=== PATIENT | female | born 1955 | race Caucasian/White ===

== ENCOUNTER 2019-11-13 07:41 | Outpatient (REF) | payer MEDICARE, SELFPAY ==
[2019-11-13 08:30] LABS: MANUAL DIFF FLAG NO
[2019-11-13 08:40] LABS: Basophils Absolute Auto 0.1 X10*3/uL (0.0-0.2); Basophils Percent Auto 1.4 % (0-2); Eosinophils Absolute Auto 0.2 X10*3/uL (0.0-0.4); Eosinophils Percent Auto 3.8 % (0-4); Hematocrit 41.5 % (37-47); Hemoglobin 13.5 g/dl (12.0-16.0); Imm Gran Abs Auto 0.01 X10*3/uL (0.00-0.03); Imm Gran Pct Auto 0.2 % (0.0-0.4); Lymphocytes Percent Auto 34.7 % (20-40); Mean Corpuscular HGB Conc 32.5 g/dl (31.0-35.0); Mean Corpuscular Hemoglobin 29.2 pg (27.0-33.0); Mean Corpuscular Volume 89.8 fL (80-98); Mean Platelet Volume 10.1 fL (9.4-12.3); Monocytes Absolute Auto 0.5 X10*3/uL (0.1-1.2); Monocytes Percent Auto 8.2 % (2-11); Neutrophils Percent Auto 51.7 % (45-73); Platelet Count 306 X10*3/uL (160-400); Red Blood Count 4.62 X10*6/uL (4.20-5.50); Red Cell Distribution Width 12.2 % (11.0-16.0); White Blood Count 5.9 X10*3/uL (4.8-10.8)
[2019-11-13 08:57] LABS: Alanine Aminotransferase 31 U/L (0-31); Alkaline Phosphatase 76 U/L (39-117); Anion Gap 10 (12-20); Aspartate Amino Transferase 26 U/L (5-31); Bilirubin Total 0.4 mg/dL (0.0-1.0); Blood Urea Nitrogen 20 mg/dL (9-16); Calcium 9.6 mg/dL (8.4-10.2); Carbon Dioxide 30 mmol/L (22-29); Chloride 105 mmol/L (96-108); Cholesterol 187 mg/dL; Estimated Glomerular Filt Rate > 60; Glucose Random 101 mg/dL (60-115); HDL Cholesterol 52 mg/dL; LDL Cholesterol Calculated 119 mg/dl; Potassium 4.5 mmol/l (3.3-5.1); Sodium 140 mmol/L (135-145); Total Protein 6.6 g/dL (6.5-8.0); Triglycerides 83 mg/dL
[2019-11-13 09:18] LABS: Free T4 (Free Thyroxine) 1.04 ng/dL (0.71-1.85); Thyroid Stimulating Hormone 1.06 mIU/mL (0.32-4.0)
[2019-11-13 10:13] LABS: Estimated Average Glucose 108 mg/dL; Hemoglobin A1c % 5.4 %
== END 2019-11-13 07:42 | disposition home or self-care (01) ==
LOC: HO.LAB 07:41
PROVIDERS: PCP Internal Medicine; Referring Provider Physician Assistant; Visit Provider Internal Medicine Endocrinology, Diabetes & Metabolism
DX: I10 Essential (primary) hypertension (principal); E06.3 Autoimmune thyroiditis
CPT/HCPCS: 36415; 80053; 80061; 83036; 84439; 84443; 85025

== ENCOUNTER → 2019-12-08 08:06 | Outpatient (BNVA) | payer MEDICARE, SELFPAY | PROVIDERS: PCP Internal Medicine; Visit Provider Internal Medicine Endocrinology, Diabetes & Metabolism | DX: E03.9 Hypothyroidism, unspecified (principal); E04.1 Nontoxic single thyroid nodule; E66.9 Obesity, unspecified; Z68.31 Body mass index [BMI] 31.0-31.9, adult; Z71.3 Dietary counseling and surveillance | CPT/HCPCS: 99214 ==

== ENCOUNTER 2020-01-19 11:13 | Outpatient (REF) | payer MEDICARE, SELFPAY ==
--- NOTE | 2020-01-19 11:25 | US_ITS ---
EXAMINATION: US THYROID CLINICAL INFORMATION: Hypothyroidism, unspecified. COMPARISON: Ultrasound soft tissue head/neck thyroid dated 09/14/2016. TECHNIQUE: Linear transducer cornell-scale and color Doppler examination with attention to the region of the thyroid. FINDINGS: SIZE: Measurements of the thyroid lobes and nodules are given in sagittal, anteroposterior and transverse dimensions respectively. Right Thyroid Lobe: 4.5 x 1.3 x 1.5 cm, volume 4.6 mL. Previously 2.5 x 0.8 x 1.2 cm, volume 1.2 mL. Parenchyma: The gland echotexture is homogeneous. Thyroid vascularity is normal. Left Thyroid Lobe: 3.6 x 0.8 x 1.3 cm, volume 1.8 mL. Previously 3.6 x 1.0 x 1.1 cm, volume 2.0 mL. Parenchyma: The gland echotexture is homogeneous. Thyroid vascularity is normal. Isthmus: 0.2 cm in maximum AP dimension. Previously 0.2 cm. RIGHT THYROID LOBE: There is 1 nodule seen. 1. Location: Mid to lower pole. Size: 1.2 x 0.7 x 1.0 cm. Previous: None cm. Nodule characteristics: Hypoechoic, smoothly marginated with intranodular flow. ISTHMUS: No nodules. LEFT THYROID LOBE: No nodules. NODES: No lymphadenopathy is seen in the tissue surrounding the thyroid gland. US/US thyroid IMPRESSION: Solitary solid nodule mid to lower pole right thyroid lobe. Recommend ultrasound-guided fine needle biopsy of this solid nodule.
== END 2020-01-19 11:14 | disposition home or self-care (01) ==
LOC: HO.US 11:13
PROVIDERS: PCP Internal Medicine; Visit Provider Internal Medicine Endocrinology, Diabetes & Metabolism
DX: E03.9 Hypothyroidism, unspecified (principal); R00.2 Palpitations; I10 Essential (primary) hypertension
CPT/HCPCS: 76536; 93005; 99212

== ENCOUNTER → 2020-01-30 09:47 | Outpatient (REF) | payer MEDICARE, SELFPAY ==
--- NOTE | 2020-01-30 15:02 | ECG_ITS ---
Hook-up date: 2020-01-30 11:09:00 Duration: :16:00 Test Indications: PALPITATIONS Medications: 76779 QRS complexes 301 Ventricular ectopics which represent <1 % of total QRS comp. 26 Supraventricular ectopics which represent <1 % of total QRS comp. * Paced QRS complexs which represent % of total QRS comp. VENTRICULAR ECTOPY 299 Isolated 0 Bigeminal Cycles 1 Couplets 0 Runs 0 Beats in Runs * Beats LONGEST at * BPM at :: -- * Beats FASTEST at * BPM at :: -- SUPRAVENTRICULAR ECTOPY 24 Isolated 1 Couplets 0 Runs 0 Beats in Runs * Beats LONGEST at * BPM at :: -- * Beats FASTEST at * BPM at :: -- HEART RATES 62 MIN at 14:01:46 2020-01-30 90 AVG 131 MAX at 17:12:28 2020-01-30 LONGEST RR 0.9840 secs at 14:01:45 2020-01-30 S-T LEVELS Channel 1 - 128 mm at 11:09:00 2020-01-30 - 128 mm at 11:09:00 2020-01-30 Channel 2 - 128 mm at 11:09:00 2020-01-30 - 128 mm at 11:09:00 2020-01-30 Channel 3 - 128 mm at 03:02:81 -- - 128 mm at 03:02:81 Basic rhythm Normal sinus rhythm No long pause or profound bradycardia Occasional Premature ventricular complexes Patient symptoms of skipped heart beat correlated with PVc Referred By: Mitch Pratt Overread By: EULALIA CARDONA MD
== END ==
LOC: HO.CARD 09:47
PROVIDERS: PCP Internal Medicine; Visit Provider Internal Medicine Cardiovascular Disease
DX: R00.2 Palpitations (principal)
CPT/HCPCS: 93226

== ENCOUNTER 2020-02-02 08:39 | Outpatient (REF) | payer MEDICARE, SELFPAY ==
--- NOTE | 2020-02-02 08:46 | US_ITS ---
EXAMINATION: US ULTRASOUND-GUIDED THYROID NODULE BIOPSY, RIGHT CLINICAL INFORMATION: Right thyroid midpole nodule. COMPARISON: 01/19/2020 and September 14, 2016 TECHNIQUE: Ultrasound-guided right thyroid nodule fine-needle aspiration biopsy. FINDINGS: Informed consent was obtained from the patient prior to the procedure. During this process, the procedure and potential alternatives were explained, along with the intended outcome and benefits. The risks of the procedure, as well as the risk of not doing the procedure, were discussed. The patient was given the opportunity to ask questions regarding the procedure and appeared competent to make medical decisions. A signed consent form which documents this discussion was placed in the medical record. Using sterile technique and ultrasound guidance, 4 separate passes of 25-gauge hypodermic needles were made into the right thyroid nodule. Preliminary cytology result was of an adequate specimen. The patient tolerated the procedure without difficulty. US/US guided fine needle asp IMPRESSION: Successful right thyroid nodule biopsy.
== END 2020-02-02 08:40 | disposition home or self-care (01) ==
LOC: HO.US 08:39
PROVIDERS: Visit Provider Internal Medicine Endocrinology, Diabetes & Metabolism
DX: E04.1 Nontoxic single thyroid nodule (principal); R00.0 Tachycardia, unspecified
CPT/HCPCS: 10005; 88172; 88173; 88177; 88305; 93005

== ENCOUNTER → 2020-07-28 14:06 | Outpatient (BNVA) | payer MEDICARE, SELFPAY | PROVIDERS: PCP Internal Medicine; Visit Provider Internal Medicine Cardiovascular Disease | DX: R00.2 Palpitations (principal); I10 Essential (primary) hypertension | CPT/HCPCS: 93005; 99212 ==

== ENCOUNTER 2020-09-23 10:16 | Outpatient (REF) | payer MEDICARE, SELFPAY ==
--- NOTE | ~2020-09-23 | US_ITS ---
EXAMINATION: US THYROID CLINICAL INFORMATION: Nontoxic single thyroid nodule. COMPARISON: Ultrasound soft tissue head/neck thyroid dated 01/19/2020 and 09/04/2016. TECHNIQUE: Linear transducer grayscale and color Doppler examination with attention to the region of the thyroid. FINDINGS: SIZE: Measurements of the thyroid lobes and nodules are given in sagittal, anteroposterior and transverse dimensions respectively. Right Thyroid Lobe: 4.7 x 1.1 x 0.9 cm, volume 2.4 mL. Previously 4.5 x 1.3 x 1.5 cm, volume 4.6 mL. Parenchyma: The gland echotexture is heterogeneous. Thyroid vascularity is normal. Left Thyroid Lobe: 4.3 x 1.1 x 0.9 cm, volume 2.3 mL. Previously 3.6 x 0.8 x 1.3 cm, volume 1.8 mL. Parenchyma: The gland echotexture is heterogeneous. Thyroid vascularity is normal. Isthmus: 0.2 cm in maximum AP dimension. Previously 0.2 cm. Estimated total number of nodules greater than or equal to 1 cm: 1. Snuff Drier nodules are described as follows: 1. Location: Right inferior. Size: 1.1 x 0.7 x 0.7 cm, volume 0.3 mL. Previously: 1.2 x 0.7 x 1.0 cm, volume 0.4 mL. Nodule characteristics: Composition: Solid (2). Echogenicity: Isoechoic (1). Shape: Not taller than wide (0). Margins: Smooth (0). Echogenic Foci: None (0). ACR TI-RADS total points: 3 Previous: n/a ACR TI-RADS category: 3 Previous: n/a Significant change in size (>/= 20% in 2 dimensions and minimal increase of 2 mm or 50% or greater increase in volume): No Change in features: No Change in ACR TI-RADS risk category: n/a NODES: No lymphadenopathy is seen in the tissue surrounding the thyroid gland. US/US thyroid IMPRESSION: Redemonstration of heterogeneous thyroid parenchyma without increased Doppler detectable vascular flow. No thyromegaly. Stable inferior right thyroid nodule measuring approximately 1.2 cm and not significantly changed in size or ultrasound characteristics when compared to the prior examination. This is consistent with TI-RADS Category 3. No new thyroid nodule. ACR TI-RADS RECOMMENDATION REFERENCE: Ultrasound-guided fine-needle aspiration, followup ultrasound, no further follow up. * TR1 (0 point) and TR 2 (2 points): No FNA or follow up * TR3 (3 points): FNA if more than or equal to 2.5 cm in maximum dimension, followup ultrasound in 1, 3 and 5 years if 1.5 to 2.4 cm in maximum dimension. * TR4 (4-6 points): FNA if more than or equal to 1.5 cm in maximum dimension, followup ultrasound in 1, 2, 3 and 5 years if 1 to 1.4 cm in maximum dimension. * TR5 (more than or equal to 7 points): FNA if more than or equal to 1 cm in maximum dimension, followup ultrasound every year for 5 years if 0.5 to 0.9 cm in maximum dimension. * TR3, TR4 or TR5 nodules that are below the size threshold for follow up receive no follow up.
== END 2020-09-23 10:17 | disposition home or self-care (01) ==
LOC: HO.US 10:16
PROVIDERS: PCP Internal Medicine; Visit Provider Internal Medicine Endocrinology, Diabetes & Metabolism
DX: E04.1 Nontoxic single thyroid nodule (principal)
CPT/HCPCS: 76536

== ENCOUNTER 2020-11-24 07:56 | Outpatient (REF) | payer MEDICARE, SELFPAY ==
[2020-11-24 11:02] LABS: MANUAL DIFF FLAG NO
[2020-11-24 11:05] LABS: Basophils Absolute Auto 0.1 X10*3/uL (0.0-0.2); Basophils Percent Auto 1.1 % (0-2); Eosinophils Absolute Auto 0.2 X10*3/uL (0.0-0.4); Eosinophils Percent Auto 2.9 % (0-4); Hematocrit 37.7 % (37-47); Hemoglobin 12.7 g/dl (12.0-16.0); Imm Gran Abs Auto 0.01 X10*3/uL (0.00-0.03); Imm Gran Pct Auto 0.2 % (0.0-0.4); Lymphocytes Absolute Auto 2.1 X10*3/uL (1.2-4.9); Lymphocytes Percent Auto 37.6 % (20-40); Mean Corpuscular HGB Conc 33.7 g/dl (31.0-35.0); Mean Corpuscular Hemoglobin 30.1 pg (27.0-33.0); Mean Corpuscular Volume 89.3 fL (80-98); Mean Platelet Volume 10.3 fL (9.4-12.3); Monocytes Absolute Auto 0.5 X10*3/uL (0.1-1.2); Monocytes Percent Auto 9.1 % (2-11); Neutrophils Absolute Auto 2.8 X10*3/uL (2.0-8.3); Neutrophils Percent Auto 49.1 % (45-73); Platelet Count 326 X10*3/uL (160-400); Red Blood Count 4.22 X10*6/uL (4.20-5.50); Red Cell Distribution Width 12.1 % (11.0-16.0); White Blood Count 5.6 X10*3/uL (4.8-10.8)
[2020-11-24 11:42] LABS: Alanine Aminotransferase 24 U/L (0-31); Albumin Level 3.7 g/dL (3.5-5.0); Alkaline Phosphatase 79 U/L (39-117); Anion Gap 12 (12-20); Aspartate Amino Transferase 19 U/L (5-31); Bilirubin Total 0.4 mg/dL (0.0-1.0); Blood Urea Nitrogen 12 mg/dL (9-16); Calcium 9.5 mg/dL (8.4-10.2); Carbon Dioxide 26 mmol/L (22-29); Chloride 106 mmol/L (96-108); Cholesterol 160 mg/dL; Estimated Glomerular Filt Rate > 60; Glucose Fasting 104 mg/dL (60-99); HDL Cholesterol 44 mg/dL; LDL Cholesterol Calculated 100 mg/dl; Potassium 4.2 mmol/L (3.3-5.1); Sodium 140 mmol/L (135-145); Total Protein 6.3 g/dL (6.5-8.0); Triglycerides 82 mg/dL
[2020-11-24 11:55] LABS: Free T4 (Free Thyroxine) 1.14 ng/dL (0.71-1.85); Thyroid Stimulating Hormone 0.39 uIU/mL (0.32-4.0)
== END 2020-11-24 07:57 | disposition home or self-care (01) ==
LOC: HO.MANLDS 07:56
PROVIDERS: PCP Physician Assistant; Visit Provider Physician Assistant
DX: E78.00 Pure hypercholesterolemia, unspecified (principal); E03.9 Hypothyroidism, unspecified
CPT/HCPCS: 36415; 80053; 80061; 84439; 84443; 85025

== ENCOUNTER → 2020-11-29 09:01 | Outpatient (BNVA) | payer MEDICARE, SELFPAY | PROVIDERS: PCP Internal Medicine; Visit Provider Internal Medicine | DX: E04.1 Nontoxic single thyroid nodule (principal); E03.9 Hypothyroidism, unspecified; E66.9 Obesity, unspecified; Z68.32 Body mass index [BMI] 32.0-32.9, adult | CPT/HCPCS: 99212 ==

== ENCOUNTER 2020-12-28 13:00 | Outpatient (REF) | payer MEDICARE, SELFPAY ==
[2020-12-28 14:08] LABS: Calcium 9.5 mg/dL (8.4-10.2); Phosphorus 2.8 mg/dL (2.7-4.5)
[2020-12-28 14:32] LABS: Thyroid Stimulating Hormone 0.89 uIU/mL (0.32-4.0)
[2020-12-28 14:33] LABS: Free T4 (Free Thyroxine) 1.03 ng/dL (0.71-1.85); Thyroid Stimulating Hormone 0.85 uIU/mL (0.32-4.0); Vitamin D 25-OH Total 52.8 ng/mL (>30)
[2020-12-30 02:57] LABS: Calcium (PTHI) 9.4 mg/dL (8.6-10.4); PTHI 61 pg/mL (14-64)
== END 2020-12-28 13:01 | disposition home or self-care (01) ==
LOC: HO.LAB 13:00
PROVIDERS: Internal Medicine Endocrinology, Diabetes & Metabolism; PCP Internal Medicine; Visit Provider Internal Medicine
DX: E04.1 Nontoxic single thyroid nodule (principal); E03.9 Hypothyroidism, unspecified; E55.9 Vitamin D deficiency, unspecified
CPT/HCPCS: 36415; 82040; 82306; 82310; 83970; 84100; 84439; 84443

== ENCOUNTER → 2021-01-26 08:57 | Outpatient (BNVA) | payer MEDICARE, SELFPAY | PROVIDERS: PCP Internal Medicine; Visit Provider Internal Medicine Cardiovascular Disease | DX: R00.2 Palpitations (principal) | CPT/HCPCS: 99212 ==

== ENCOUNTER → 2021-10-05 14:32 | Outpatient (BNVA) | payer MEDICARE, SELFPAY | PROVIDERS: PCP Internal Medicine; Visit Provider Internal Medicine Cardiovascular Disease | DX: I10 Essential (primary) hypertension (principal); R00.2 Palpitations | CPT/HCPCS: 99212 ==

== ENCOUNTER 2022-07-19 18:05 | Emergency (ER) | payer MEDICARE, SELFPAY ==
--- NOTE | ~2022-07-19 | XR_ITS ---
EXAMINATION: XR WRIST, RIGHT CLINICAL INFORMATION: Pain COMPARISON: None available. TECHNIQUE: PA, lateral, and oblique views of the right wrist. FINDINGS: Moderate to advanced degenerative changes of the triscaphe joint with loss of joint space. Remote appearing well-corticated ulnar styloid avulsion fracture. Age-indeterminate osseous fragment dorsal to the wrist which may reflect sequelae of age-indeterminate triquetral avulsion fracture. Recommend correlation with point tenderness. Soft tissue swelling along the dorsum of the wrist. XR/XR wrist RT min 3V IMPRESSION: 1. Age-indeterminate osseous fragment dorsal to the wrist which may reflect sequelae of age-indeterminate triquetral avulsion fracture. Recommend correlation with point tenderness. There is associated soft tissue swelling. 2. Moderate to advanced degenerative changes of the triscaphe joint with loss of joint space. 3. Remote appearing well-corticated ulnar styloid avulsion fracture.
--- NOTE | ~2022-07-19 | XR_ITS ---
EXAMINATION: XR FOOT, RIGHT CLINICAL INFORMATION: Pain COMPARISON: None available. TECHNIQUE: AP, lateral, and oblique views of the right foot. FINDINGS: Acute obliquely oriented nondisplaced fracture of the distal fifth metatarsal diaphysis. Soft tissue swelling along the lateral aspect of the foot. Moderate to advanced degenerative changes of the first metatarsophalangeal joint with near complete loss of joint space. Small tibiotalar joint effusion. XR/XR foot RT min 3V IMPRESSION: * Acute obliquely oriented nondisplaced fracture of the distal fifth metatarsal diaphysis. Soft tissue swelling along the lateral aspect of the foot. * Moderate to advanced degenerative changes of the first metatarsophalangeal joint.
[2022-07-19 18:22] VITALS: BP 176/82; PULSE 92; RESP 18; TEMP 36.6; O2SAT 98; BMI 32.3
--- NOTE | 2022-07-19 18:24 | ED.GENADULT ---
HPI - General Adult General Chief complaint: Fall Stated complaint: fell, R foot, R wrist Time Seen by Provider: 07/19/22 18:39 Source: patient Mode of arrival: ambulatory History of Present Illness HPI narrative: 66-year-old female states that she was at an event today in high heels when she fell and is unsure how she fell but states that afterwards she had mild pain at the right wrist as well as the 5th tarsal/metatarsal that was worse with weight-bearing and there is some mild bruising over that area. Related Data Home Medications Medication Instructions Recorded Confirmed lisinopril 20 1 tab PO DAILY 12/08/19 10/05/21 mg-hydrochlorothiazide 25 mg tablet omeprazole 20 mg capsule,delayed 20 mg PO DAILY 12/08/19 10/05/21 release simvastatin 20 mg tablet 20 mg PO BEDTIME 12/08/19 10/05/21 celecoxib 200 mg capsule (Celebrex) 200 mg PO DAILY PRN 07/28/20 10/05/21 Previous Rx's Medication Instructions Recorded Synthroid 75 mcg tablet 75 mcg PO DAILY 30 days #30 tabs 11/29/20 (levothyroxine) metoprolol succinate 25 mg 25 mg PO BID #180 tabs 11/16/21 tablet,extended release 24 hr Allergies Allergy/AdvReac Type Severity Reaction Status Date / Time Sulfa (Sulfonamide Allergy Unknown Unknown Verified 07/19/22 18:22 Antibiotics) sulfamethoxazole Allergy Unknown HIVES Verified 07/19/22 18:22 [From BACTRIM] trimethoprim [From BACTRIM] Allergy Unknown HIVES Verified 07/19/22 18:22 Review of Systems Review of Systems: Pertinent positives and negatives as stated in HPI [facility] Past Medical History Source: nursing notes reviewed Medical History Abnormal thyroid biopsy Dyslipidemia Hypertension Hypothyroidism Obesity Obesity (BMI 30-39.9) Thyroid nodule Vitamin D deficiency Surgical History Hx of arthroscopy of left knee Hx of breast biopsy Family History Family History Father Heart disease Mother Hypertension Thyroid disease Afib Maternal Aunt Diabetes mellitus Social History Social History Alcohol intake: current Alcohol intake frequency: a few times a week Alcohol type: wine and hard liquor Patient Tobacco Use Status: Former Tobacco user Quit Date: 2002 Years Smoked: 10 Advance Directives: No Advance Directives Information Provided: No Physical Exam ED Vital Signs: Vital Signs - 24 hr 07/19/22 18:22 07/19/22 21:16 Temperature 98 F Pulse Rate 92 84 Respiratory Rate 18 Blood Pressure 176/82 H 139/75 Pulse Oximetry 98 95 Oxygen Delivery Method Room Air BMI result Body Mass Index 32.3 VITAL SIGNS: Reviewed. GENERAL: Well developed, well nourished, in no acute distress. HEAD: Normocephalic/atraumatic EYES: PERRLA, EOMI EARS: Ext canals without abnormality NOSE: Nares patent bilateral OROPHARYNX: no oral lesions noted, posterior pharynx clear NECK: Supple, no adenopathy LUNGS: Normal breath sounds. No adventitious sounds or accessory muscle use. SpO2<98> CARDIOVASCULAR: Regular rate and rhythm without noted murmurs ABDOMEN: Soft, non-tender, non-distended with bowel sounds. MUSCULOSKELETAL: No tenderness, deformities, or effusions noted on gross inspection. EXTREMITIES: No cyanosis, clubbing or edema. RLE: No obvious deformity, mild ecchymosis noted at the distal 5th tarsal/metatarsal with point tenderness on palpation, otherwise no tenderness to palpation or swelling noted at either malleoli or midfoot RUE: Very mild swelling noted at the distal right radius no obvious deformity, there is point tenderness over the distal aspect patient is able to flex and extend at the wrist as well as supinate and pronate but has some mild pain on radial deviation verses ulnar deviation. Capillary refill and pulses are palpable SKIN: Inspection of the skin reveals no rashes NEUROLOGIC: Alert and oriented x 4. Strength and sensation to light touch were grossly intact x 4. Course Course Course Narrative: 58-year-old female presents for evaluation of right wrist and right foot pain after sustaining a fall [place]. X-rays ordered. Medical Decision Making Medical Decision Making MDM Narrative: 66-year-old female with history and clinical presentation most consistent with suspected nondisplaced fracture at the right 5th tarsal/metatarsal as well as the right radius. Patient states that her pain is well controlled at present. Fifth metatarsal fracture is outlined in clinical exam and above, also age indeterminate triquetral avulsion fracture. Patient placed in a volar splint will be discharged home with instructions to follow-up with orthopedics by calling the office in the morning. Differential Diagnosis Please see the discussion above Radiology Impression Radiologist Impression: My interpretation is in agreement with radiology's impression Discharge Plan Discharge Clinical Impression: Closed nondisplaced fracture of fifth right metatarsal bone, Fracture of triquetral bone of right wrist Patient Disposition: Home, Self-Care Instructions: Wrist Fracture in Adults (ED), Foot Fracture in Adults (ED), Splint Care (ED) Additional Instructions: 1. Resume all home medications as prescribed. 2. Recommend [id number] Tylenol/ibuprofen as needed for pain control as well as ice to unexposed skin. 3. You have been provided with a referral to follow-up with orthopedics and should call the office in the morning. Do not hesitate to return to the emergency room for any worsening symptoms. Prescriptions: No Action metoprolol succinate 25 mg tablet extended release 24 hr 25 mg PO BID Qty: 180 3RF celecoxib [Celebrex] 200 mg capsule 200 mg PO DAILY PRN lisinopril-hydrochlorothiazide 20-25 mg tablet 1 tab PO DAILY omeprazole 20 mg capsule,delayed release(DR/EC) 20 mg PO DAILY simvastatin 20 mg tablet 20 mg PO BEDTIME levothyroxine [Synthroid] 75 mcg tablet 75 mcg PO DAILY 30 Days Qty: 30 5RF Referrals: Erik Lizama MD [Primary Care Provider] - Moose Torres MD [Physician] -
[2022-07-19 21:16] VITALS: BP 139/75; PULSE 84; O2SAT 95
== END 2022-07-19 21:46 | disposition home or self-care (01) ==
PROVIDERS: Emergency Provider Student in an Organized Health Care Education/Training Program; PCP Internal Medicine
DX: S92.354A Nondisplaced fracture of fifth metatarsal bone, right foot, initial encounter for closed fracture (principal); S62.114A Nondisplaced fracture of triquetrum [cuneiform] bone, right wrist, initial encounter for closed fracture; W19.XXXA Unspecified fall, initial encounter; Y93.9 Activity, unspecified; Y92.9 Unspecified place or not applicable; Y99.9 Unspecified external cause status
CPT/HCPCS: 29125; 73110; 73630; 99283; 99284

== ENCOUNTER 2022-09-15 06:50 | Outpatient (REF) | payer MEDICARE, SELFPAY ==
[2022-09-15 07:08] LABS: MANUAL DIFF FLAG NO
[2022-09-15 07:20] LABS: Basophils Absolute Auto 0.1 X10*3/uL (0.0-0.2); Basophils Percent Auto 1.8 % (0-2); Eosinophils Absolute Auto 0.2 X10*3/uL (0.0-0.4); Eosinophils Percent Auto 2.8 % (0-4); Hematocrit 40.7 % (37.0-47.0); Hemoglobin 13.6 g/dl (12.0-16.0); Imm Gran Abs Auto 0.02 X10*3/uL (0.00-0.03); Imm Gran Pct Auto 0.3 % (0.0-0.4); Lymphocytes Absolute Auto 2.3 X10*3/uL (1.2-4.9); Lymphocytes Percent Auto 37.6 % (20-40); Mean Corpuscular HGB Conc 33.4 g/dl (31.0-35.0); Mean Corpuscular Hemoglobin 29.8 pg (27.0-33.0); Mean Corpuscular Volume 89.1 fL (80.0-98.0); Mean Platelet Volume 10.3 fL (9.4-12.3); Monocytes Absolute Auto 0.6 X10*3/uL (0.1-1.2); Monocytes Percent Auto 9.7 % (2-11); Neutrophils Absolute Auto 2.9 x10*3/uL (2.0-8.3); Neutrophils Percent Auto 47.8 % (45-73); Platelet Count 317 X10*3/uL (160-400); Red Blood Count 4.57 X10*6/uL (4.20-5.50); White Blood Count 6.1 X10*3/uL (4.8-10.8)
[2022-09-15 07:29] LABS: Estimated Average Glucose 105 mg/dL; Hemoglobin A1c % 5.3 %
[2022-09-15 07:48] LABS: Alanine Aminotransferase 31 U/L (0-31); Albumin Level 4.2 g/dL (3.5-5.0); Alkaline Phosphatase 74 U/L (39-117); Anion Gap 15 (12-20); Aspartate Amino Transferase 23 U/L (5-31); Bilirubin Total 0.5 mg/dL (0.0-1.0); Blood Urea Nitrogen 22 mg/dL (9-16); Carbon Dioxide 23 mmol/L (22-29); Chloride 104 mmol/L (96-108); Cholesterol 166 mg/dL; Estimated Glomerular Filt Rate > 60; Glucose Random 112 mg/dL (60-115); HDL Cholesterol 46 mg/dL; LDL Cholesterol Calculated 102 mg/dl; Potassium 4.2 mmol/L (3.3-5.1); Sodium 138 mmol/L (135-145); Total Protein 7.5 g/dL (6.5-8.0); Triglycerides 90 mg/dL
[2022-09-15 08:03] LABS: TSH reflex Free T4 1.56 uIU/mL (0.32-4.0)
[2022-09-17 06:34] LABS: Triiodothyronine T3 Free 3.5 pg/mL (2.3-4.2)
== END 2022-09-15 06:51 | disposition home or self-care (01) ==
LOC: HO.LAB 06:50
PROVIDERS: Physician Assistant; Absent Provider Internal Medicine; PCP Internal Medicine; Visit Provider Pediatrics
DX: E78.2 Mixed hyperlipidemia (principal); E03.8 Other specified hypothyroidism; Z83.3 Family history of diabetes mellitus
CPT/HCPCS: 36415; 80053; 80061; 83036; 84443; 84481; 85025

== ENCOUNTER 2022-11-15 10:31 | Outpatient (AMB) | payer MEDICARE, SELFPAY ==
[2022-11-15 10:36] VITALS: BP 120/74; PULSE 68; BMI 33.3
--- NOTE | 2022-11-15 10:36 | A.OFFVIS_ITS ---
Intake Vital Signs 11/15/22 10:36 Height 5 ft 6 in Weight 206 lb 5.643 oz BMI 33.3 BP 120/74 Blood Pressure Location Lt brachial Position Sitting Pulse 68 Intake Visit Reasons: 1 year follow up Intake Note: 1 year f/u [employer] Required: No Allergies Sulfa (Sulfonamide Antibiotics) Allergy (Unknown, Verified 11/15/22 10:40) Unknown sulfamethoxazole [From BACTRIM] Allergy (Unknown, Verified 11/15/22 10:40) HIVES trimethoprim [From BACTRIM] Allergy (Unknown, Verified 11/15/22 10:40) HIVES Medication List - Last Reconciled 11/15/22 by Micth Pratt MD levothyroxine (Synthroid) 88 mcg PO DAILY lisinopril-hydrochlorothiazide 20-25 mg 1 tab PO DAILY metoprolol succinate ER 25 mg PO BID omeprazole 20 mg PO DAILY simvastatin 20 mg PO BEDTIME HPI HPI Comments History of Present Illness Details 67-year-old pleasant female here for fam shaista history of coronary artery disease. Her brother had myocardial infarction at age 60. She has background of hypertension, hyperlipidemia and hypothyroidism. She has no exertional chest pain or shortness of breath. She occasionally gets palpitations when she is anxious. Currently she has no limiting symptoms. I met her when she came with her mother who is my patient. She briefly discussed with me about her situation and after discussion I told her that a coronary calcium score may help understand her situation. She has undergone a coronary calcium score which is 0. She has been taking simvastatin for hyperlipidemia. She is on lisinopril hydrochlorothiazide combination medication and blood pressure is well controlled. She was complaining of palpitation and underwent Holter monitoring which showed premature ventricular complexes. She was started on metoprolol 25 mg twice a day since then her symptoms improved. On follow-up today she is complaining of no new symptoms. No chest discomfort shortness of breath. She had very brief period of palpitations while she was on vacation in [place]. I have advised her to keep herself well hydrated which she does a good job with anyway. 11/15/22: She returns for follow-up. Miriam badillo is complaining of some palpitations happening every other day. These last for a minute or so. During activities she does not have any symptoms. Overall she is not bothered by them. No chest pain or shortness of breath of syncope. [facility] Medical History Abnormal thyroid biopsy Dyslipidemia Hypertension Hypothyroidism Obesity Obesity (BMI 30-39.9) Thyroid nodule Vitamin D deficiency Surgical History Hx of breast biopsy Hx of arthroscopy of left knee Family History Father Heart disease Mother Hypertension Thyroid disease Afib Maternal Aunt Diabetes mellitus Social History Alcohol intake: current Alcohol intake frequency: a few times a week Alcohol type: wine and hard liquor Patient Tobacco Use Status: Former Tobacco user Quit Date: 2002 Years Smoked: 10 Review of Systems ENT Reports dizziness Card Denies chest pain, Denies chest pain at rest, Denies chest pain with activity, Denies rapid heart rate, Denies pedal edema, Denies edema, Denies leg edema, Denies lightheadedness, Denies palpitations, Denies dyspnea, Denies dyspnea on exertion and Denies orthopnea Resp Denies cough, Denies dyspnea and Denies dyspnea on exertion GI Denies hematochezia and Denies change in stool character Musc Denies abnormal gait, Reports limited range of motion, Reports muscle cramps, Denies muscle weakness, Denies numbness, Denies radiating pain into limb, Denies stiffness and Denies tingling Neuro Denies abnormal gait, Reports dizziness, Denies numbness and Denies tingling Endo Denies palpitations Physical Exam Vital Signs: Last Vital Signs Pulse 68 11/15/22 10:36 BP 120/74 11/15/22 10:36 BMI result Body Mass Index 33.3 GENERAL APPEARANCE: in no acute distress, well developed, well nourished. NECK/THYROID: no carotid bruit, no jugular venous distention. SKIN: no suspicious lesions, warm and dry. HEART: no murmurs, regular rate and rhythm, S1, S2 normal. LUNGS: clear to auscultation bilaterally. ABDOMEN: normal, bowel sounds present, soft, nontender, nondistended. EXTREMITIES: no clubbing, cyanosis, or edema. PERIPHERAL PULSES: equal. NEUROLOGIC: nonfocal, alert and oriented. PSYCH: mood/affect full range. Office Procedures EKG Details: Sinus rhythm 68 beats per minute, normal axis, normal ECG, QTC 438 milliseconds. [id number], Complete Assessment & Plan Assessment & Plan (1) Hypertension: Code(s): I10 - Essential (primary) hypertension (2) Palpitations: Code(s): R00.2 - Palpitations Plan Pleasant 67-year-old female here for follow-up. She has background of hypertension and palpitations. She had PVCs on Holter monitoring. With beta-blockers, she has done well but recently started noticing some palpitations. Still these are not bothersome and not frequent. With activities she has no symptoms. She is going to [place] for 6 months. We discussed about increasing metoprolol but currently given the fact that she is not bothered by PVCs we have decided not to increase the dose. I explained to her that if she gets frequent episodes while she is in [place] then she can reach out to us and depending on her blood pressure we can increase the metoprolol to 50 mg twice a day at that stage. No sign or symptoms of heart failure. Follow-up in 1 year. Thank you for allowing me to participate in the care of your patient. Please feel free to contact me if you have any questions. Coding Level of Care Code Est Pt Level 3 (71816) Diagnoses Hypertension I10 Palpitations R00.2 CPT Codes EKG - CPT: 31209-[id number], Complete ([id number])
== END 2022-11-15 11:25 | disposition home or self-care (01) ==
PROVIDERS: PCP Internal Medicine; Visit Provider Internal Medicine Cardiovascular Disease
DX: I10 Essential (primary) hypertension (principal); R00.2 Palpitations
CPT/HCPCS: 93010; 99213

== ENCOUNTER → 2022-11-15 10:31 | Outpatient (BNVA) | payer MEDICARE, SELFPAY | PROVIDERS: PCP Internal Medicine; Visit Provider Internal Medicine Cardiovascular Disease | DX: I10 Essential (primary) hypertension (principal); R00.2 Palpitations | CPT/HCPCS: 93005; 99212 ==

== ENCOUNTER 2023-10-02 13:33 | Outpatient (REF) | payer MEDICARE, SELFPAY | END 2023-10-02 13:34 | disposition home or self-care (01) | LOC: HO.LNP 13:33 | PROVIDERS: Visit Provider Physician Assistant | DX: J02.9 Acute pharyngitis, unspecified (principal) | CPT/HCPCS: 87070 ==

== ENCOUNTER 2024-01-04 22:00 | Emergency (ER) | payer MEDICARE, SELFPAY ==
--- NOTE | ~2024-01-04 | XR_ITS ---
EXAMINATION: XR SHOULDER 2 OR MORE VIEWS RIGHT, XR SHOULDER 1 VIEW RIGHT CLINICAL INFORMATION: right shoulder pain, fall COMPARISON: None. TECHNIQUE: 2 view series right shoulder 01/04/2024 10:31 PM; single post reduction AP view 10:49 PM FINDINGS: Initial radiographs demonstrate an anteroinferior dislocation of the right humeral head. The visualized right ribs and lung are normal in appearance. No fractures identified. The final postreduction view demonstrates normal AP orientation of the glenohumeral joint. Humeral head appears intact. Normal appearance of the acromioclavicular joint. XR/XR shoulder RT min 2V IMPRESSION: Initial anterior dislocation of the right shoulder with post reduction images demonstrating normal glenohumeral alignment. No fractures. Electronically signed by: Perez Parkinson MD 01/05/2024 12:52 AM FARTUN MARCELINO
--- NOTE | ~2024-01-04 | XR_ITS ---
EXAMINATION: XR SHOULDER 2 OR MORE VIEWS RIGHT, XR SHOULDER 1 VIEW RIGHT CLINICAL INFORMATION: right shoulder pain, fall COMPARISON: None. TECHNIQUE: 2 view series right shoulder 01/04/2024 10:31 PM; single post reduction AP view 10:49 PM FINDINGS: Initial radiographs demonstrate an anteroinferior dislocation of the right humeral head. The visualized right ribs and lung are normal in appearance. No fractures identified. The final postreduction view demonstrates normal AP orientation of the glenohumeral joint. Humeral head appears intact. Normal appearance of the acromioclavicular joint. XR/XR shoulder RT 1V IMPRESSION: Initial anterior dislocation of the right shoulder with post reduction images demonstrating normal glenohumeral alignment. No fractures. Electronically signed by: Perez Parkinson MD 01/05/2024 12:52 AM FARTUN MARCELINO
[2024-01-04 22:04] VITALS: BP 107/53; PULSE 72; RESP 18; TEMP 36.3; O2SAT 93; BMI 30.7
--- NOTE | 2024-01-04 22:34 | ED.EXTPRO ---
HPI - Extremity Problem General Chief complaint: Extremity Injury, Upper Stated complaint: Fall/R shoulder pain Time Seen by Provider: 01/04/24 22:34 Source: patient Mode of arrival: ambulatory Limitations: no limitations History of Present Illness ED Provider: zoraida COUCH Narrative: Patient apparently slipped while living [place] earlier on a piece of fence landed on her right shoulder complaining of pain and unable to lift the right shoulder because of pain no history of dislocation in the past no other injuries Related Data Home Medications ?Medication ?Instructions ?Recorded ?Confirmed lisinopril 20 1 tab PO DAILY 12/08/19 11/15/22 mg-hydrochlorothiazide 25 mg tablet omeprazole 20 mg capsule,delayed 20 mg PO DAILY 12/08/19 11/15/22 release simvastatin 20 mg tablet 20 mg PO BEDTIME 12/08/19 11/15/22 levothyroxine 88 mcg tablet 88 mcg PO DAILY 11/15/22 11/15/22 (Synthroid) Previous Rx's ?Medication ?Instructions ?Recorded metoprolol succinate 25 mg 25 mg PO BID #180 tabs 02/23/23 tablet,extended release 24 hr Allergies Allergy/AdvReac Type Severity Reaction Status Date / Time Sulfa (Sulfonamide Allergy Unknown Unknown Verified 01/04/24 22:07 Antibiotics) sulfamethoxazole Allergy Unknown HIVES Verified 01/04/24 22:07 [From BACTRIM] trimethoprim [From BACTRIM] Allergy Unknown HIVES Verified 01/04/24 22:07 Review of Systems Review of Systems: Yes all other systems are reviewed and are negative PMFSH Past Medical History Medical History Vitamin D deficiency Obesity Abnormal thyroid biopsy Dyslipidemia Hypertension Obesity (BMI 30-39.9) Thyroid nodule Hypothyroidism Surgical History Hx of breast biopsy Hx of arthroscopy of left knee Family History Family History Father Heart disease Mother Hypertension Thyroid disease Afib Maternal Aunt Diabetes mellitus Social History Social History Alcohol intake: current Alcohol intake frequency: a few times a week Alcohol type: wine and hard liquor Patient Tobacco Use Status: Former Tobacco user Years Smoked: 10 Advance Directives: No Advance Directives Information Provided: No Physical Exam Vital Signs: Vital Signs: Last Vital Signs Temp 97.4 F 01/04/24 23:40 Pulse 72 01/04/24 23:40 Resp 18 01/04/24 23:40 BP 107/53 L 01/04/24 23:40 Pulse Ox 93 01/04/24 23:40 O2 Del Method Room Air 01/04/24 23:40 BMI result Body Mass Index 30.7 Appearance: Alert. Oriented X3. No acute distress. ENT: Pharynx normal. Oral Mucosa moist Neck: Normal inspection. Neck supple. CVS: Normal heart rate and rhythm. Pulses normal. Respiratory: No respiratory distress. Equal air entry bilateral, no wheezing/rales/rhonchi Skin: Skin warm and dry. Normal skin color. Normal skin turgor. Extremities: No lower extremity edema. Right shoulder squared neurovascular intact Neuro: Oriented X 3. Medications Administered Discontinued Medications Generic Name Dose Route Start Last Admin Trade Name Manuelq PRN Reason Stop Dose Admin Ibuprofen 600 mg 01/04/24 22:57 01/04/24 23:11 Ibuprofen 600 Mg Tablet PO 01/04/24 22:58 600 mg ONCE ONE Administration Medical Decision Making Medical Decision Making MDM Narrative: Patient's right shoulder dislocate scapular manipulation technique was used to reduce postreduction x-ray with satisfactory position Discharge Plan Discharge Clinical Impression: Anterior dislocation of right shoulder Patient Disposition: Home, Self-Care Instructions: Shoulder Dislocation (ED) Additional Instructions: Keep your right arm in sling Avoid lifting your arm above shoulder for next 3-4 weeks Report to the ER if recurrence of the dislocation Prescriptions: No Action metoprolol succinate 25 mg tablet extended release 24 hr 25 mg PO BID Qty: 180 3RF lisinopril-hydrochlorothiazide 20-25 mg tablet 1 tab PO DAILY omeprazole 20 mg capsule,delayed release(DR/EC) 20 mg PO DAILY simvastatin 20 mg tablet 20 mg PO BEDTIME levothyroxine [Synthroid] 88 mcg tablet 88 mcg PO DAILY Interventions: ED Discharge Assessment Last Done: 01/04/24 23:40 Discharge Date/Time: 01/04/24 23:49 Print Language: Macedonian
[2024-01-04] MEDS: Ibuprofen 600 MG TABLET PO (23:11)
[2024-01-04 23:40] VITALS: BP 107/53; PULSE 72; RESP 18; TEMP 36.3; O2SAT 93
== END 2024-01-04 23:49 | disposition home or self-care (01) ==
PROVIDERS: Emergency Provider Internal Medicine; PCP Internal Medicine
DX: S43.014A Anterior dislocation of right humerus, initial encounter (principal); W01.0XXA Fall on same level from slipping, tripping and stumbling without subsequent striking against object, initial encounter; Y93.89 Activity, other specified; Y92.511 Restaurant or cafe as the place of occurrence of the external cause; Y99.9 Unspecified external cause status
CPT/HCPCS: 23650; 73020; 73030; 99283

== ENCOUNTER 2024-01-21 15:24 | Outpatient (AMB) | payer MEDICARE, SELFPAY ==
--- NOTE | 2024-01-21 15:38 | MHC.OFFVIS ---
Vital Signs 01/21/24 15:39 Height 5 ft 6 in Weight 189 lb 2.506 oz BMI 30.5 BP 130/60 Blood Pressure Location Lt brachial Position Sitting Pulse 88 Pulse Source Monitor Intake Visit Reasons: 1 yr f/up Intake Note: 1 yr f/up Accident Report Clerk Required: No Accompanied by: Self / Same As Patient Allergies Sulfa (Sulfonamide Antibiotics) Allergy (Unknown, Verified 01/04/24 22:07) Unknown sulfamethoxazole [From BACTRIM] Allergy (Unknown, Verified 01/04/24 22:07) HIVES trimethoprim [From BACTRIM] Allergy (Unknown, Verified 01/04/24 22:07) HIVES Medication List - Last Reconciled 01/21/24 by Mitch Pratt MD levothyroxine (Synthroid) 88 mcg PO DAILY lisinopril-hydrochlorothiazide 20-25 mg 1 tab PO DAILY metoprolol succinate ER 25 mg PO BID omeprazole 20 mg PO DAILY simvastatin 20 mg PO BEDTIME HPI Comments Details: 68-year-old pleasant female here for family history of coronary artery disease. Her brother had myocardial infarction at age 60. She has background of hypertension, hyperlipidemia and hypothyroidism. She has no exertional chest pain or shortness of breath. She occasionally gets palpitations when she is anxious. Currently she has no limiting symptoms. I met her when she came with her mother who is my patient. She briefly discussed with me about her situation and after discussion I told her that a coronary calcium score may help understand her situation. She has undergone a coronary calcium score which is 0. She has been taking simvastatin for hyperlipidemia. She is on lisinopril hydrochlorothiazide combination medication and blood pressure is well controlled. She was complaining of palpitation and underwent Holter monitoring which showed premature ventricular complexes. She was started on metoprolol 25 mg twice a day since then her symptoms improved. On follow-up today she is complaining of no new symptoms. No chest discomfort shortness of breath. She had very brief period of palpitations while she was on vacation in [place]. I have advised her to keep herself well hydrated which she does a good job with anyway. 11/15/22: She returns for follow-up. She is complaining of some palpitations happening every other day. These last for a minute or so. During activities she does not have any symptoms. Overall she is not bothered by them. No chest pain or shortness of breath of syncope. 01/21/2024: She is here for follow-up. She is been doing well. She is saying palpitations are very infrequent and she is been doing well with the current dose of metoprolol succinate 25 mg twice a day. She is on lisinopril hydrochlorothiazide combination and blood pressure is well controlled. No chest pain or shortness of breath. [facility] Medical History Vitamin D deficiency Obesity Abnormal thyroid biopsy Dyslipidemia Hypertension Obesity (BMI 30-39.9) Thyroid nodule Hypothyroidism Surgical History Hx of breast biopsy Hx of arthroscopy of left knee Family History Father Heart disease Mother Hypertension Thyroid disease Afib Maternal Aunt Diabetes mellitus Social History Alcohol intake: current Alcohol intake frequency: a few times a week Alcohol type: wine and hard liquor Patient Tobacco Use Status: Former Tobacco user Years Smoked: 10 Review of Systems Const Denies chills, Denies fatigue, Denies fever(s), Denies frequent falls, Denies weakness, Denies weight gain and Denies weight loss ENT Denies dizziness Card Denies chest pain, Denies leg edema, Denies lightheadedness, Denies palpitations, Denies dyspnea and Denies dyspnea on exertion Resp Denies cough, Denies dyspnea and Denies dyspnea on exertion GI Denies hematochezia Musc Denies abnormal gait, Denies muscle weakness, Denies numbness, Denies radiating pain into limb and Denies tingling Neuro Denies abnormal gait, Denies dizziness, Denies frequent falls, Denies numbness, Denies tingling and Denies weakness Endo Denies fatigue and Denies palpitations Physical Exam Vital Signs: Last Vital Signs Pulse 88 01/21/24 15:39 BP 130/60 01/21/24 15:39 BMI result Body Mass Index 30.5 GENERAL APPEARANCE: in no acute distress, well developed, well nourished. NECK/THYROID: no carotid bruit, no jugular venous distention. SKIN: no suspicious lesions, warm and dry. HEART: no murmurs, regular rate and rhythm, S1, S2 normal. LUNGS: clear to auscultation bilaterally. ABDOMEN: normal, bowel sounds present, soft, nontender, nondistended. EXTREMITIES: no clubbing, cyanosis, or edema. PERIPHERAL PULSES: equal. NEUROLOGIC: nonfocal, alert and oriented. Office Procedures EKG Details: Sinus rhythm 88 beats per minute, rightward axis, normal ECG, QTC 442 milliseconds. [id number], Complete Assessment & Plan Assessment & Plan (1) Palpitations: Code(s): R00.2 - Palpitations Category: Medical (2) Hypertension: Code(s): I10 - Essential (primary) hypertension Category: Medical Plan Pleasant 68-year-old female here for follow-up. She has background of hypertension and palpitations. She had PVCs on Holter monitoring. With beta-blockers, she has done well and we will continue 25 mg twice a day of metoprolol. Blood pressure is well controlled with metoprolol and lisinopril hydrochlorothiazide combination. Follow-up in 1 year. Thank you for allowing me to participate in the care of your patient. Please feel free to contact me if you have any questions. Coding Level of Care Code Est Pt Level 4 (23904) Diagnoses Palpitations R00.2 Hypertension I10 CPT Codes EKG - CPT: 97473-[id number], Complete ([id number])
[2024-01-21 15:39] VITALS: BP 130/60; PULSE 88; BMI 30.5
== END 2024-01-21 16:00 | disposition home or self-care (01) ==
PROVIDERS: PCP Internal Medicine; Visit Provider Internal Medicine Cardiovascular Disease
DX: R00.2 Palpitations (principal); I10 Essential (primary) hypertension
CPT/HCPCS: 93010; 99214

== ENCOUNTER → 2024-01-21 15:24 | Outpatient (BNVA) | payer MEDICARE, SELFPAY | PROVIDERS: PCP Internal Medicine; Visit Provider Internal Medicine Cardiovascular Disease | DX: R00.2 Palpitations (principal); I10 Essential (primary) hypertension | CPT/HCPCS: 93005; 99212 ==

== ENCOUNTER 2025-01-27 07:09 | Outpatient (REF) | payer MEDICARE, SELFPAY ==
--- OUTSIDE RECORDS SUMMARY | 2025-01-27 07:12 | XMS_ITS | Data Portability ---
Author Organization [facility], [employer], [facility] Address [address] [place] [address] Care Team Providers Care Winding Operator Name Role Phone JEFFRY KAUFFMAN Referring Provider Assessment No assessment recorded. Plan of Treatment Reminders Order Date Submit Date Provider Last Modified By Organization Details Last Modified Time Details Appointments None record ed. Lab cultur e, urine 2020 021 [facility], [address] [place], [address], 06:28:18 urinal ysis, dipsti ck, auto 2020 021 [email or web address] In-Office Order, Internal Use Only DO Not Attach Compendium DO Not Attach Compendium, Do Not Delete/merge, [id number] 13:09:59 cultur e, urine 2020 021 [facility], [address], [place], [address], 11:35:28 urinal ysis, dipsti ck, auto 2020 021 [email or web address] In-Office Order, Internal Use Only DO Not Attach Compendium DO Not Attach Compendium, Do Not Delete/merge, [id number] 14:23:47 urinal ysis, dipsti ck, auto 2020 021 [email or web address] In-Office Order, Internal Use Only DO Not Attach Compendium DO Not Attach Compendium, Do Not Delete/merge, [id number] 18:28:03 cultur e, urine 2020 021 [facility], [address], [place], [address], 06:23:08 Referral None record ed. Procedures None record ed. Surgeries None record ed. Imaging None record ed. Medication Orders Zithro max Z-Shamar 250 mg tablet 2023 024 [facility]/Pharmacy #[id number], [address] [place], [address], 4 11:00:46 Cipro 500 mg tablet 2020 021 [email or web address] [facility]/Pharmacy #4726, [address] [place], [address], 3 11:32:16 nitrof uranto in monohy drate/ macroc rystal s 100 mg capsul e 2020 [facility], [address] [place], [address], 1 12:43:16 Macrob id 100 mg capsul e 2020 021 [facility] #47[facility], [address] [place], [address], 1 12:43:16 Patient TargetsNo targets recorded. Patient Instructions Encounter Date Encounter Id Patient Instructions Last Modified By Organization Details Last Modified Time 04/18/2020 [id number] pt asked to cont.pushing fluids,will call in 72 hrs with urine culture results [email or web address] Not available 04/18/2020 18:30:41 07/06/2020 [id number] Discussed UTI an d differentials. Sent Rx, written instructions given, pt understands to return to clinic/PCP if not better or if worse (to ER if severe sx such as inability to urinate, severe ABD/pelvic pain, intractable N/V, bleeding). Pt verbalized understanding and agrees with plan. [email or web address] Not available 07/06/2020 12:48:21 05/13/2022 [id number] upper respirator y infection (cold): care instructions Not available 05/13/2022 11:45:46 viral respirator y infection: care instructions Not available 05/13/2022 11:45:46 04/20/2023 [id number] Acute Sinusitis: Care Instructions [email or web address] Not available 04/20/2023 11:00:41 Patient understands instructions and will seek medical attention if symptoms worsen as directed. [email or web address] Not available 04/20/2023 11:00:27 Reason for Referral None Reported. Results Created Date Observation Date Name Description Value Unit Range Abnormal Flag Note LastModifiedBy Organization Detail LastModifiedTime 07/07/1907/06/2020 urina lysis , dipst ick, auto leukocytes large negati ve Not Available In-Office Order Internal Use Only DO Not Attach Compendium DO Not Attach Compendium, Do Not Delete/merge, [id number] 07/06/2020 12:37:23 07/07/1907/06/2020 urina lysis , dipst ick, auto nitrite neg negati ve Not Available In-Office Order Internal Use Only DO Not Attach Compendium DO Not Attach Compendium, Do Not Delete/merge, [id number] 07/06/2020 12:37:23 07/07/19 21 07/06/2020 urina lysis , dipst ick, auto urobilinogen 0.2 0.2 Not Available In-Of fice Order Internal Use Only DO Not Attach Compendium DO Not Attach Compendium, Do Not Delete/merge, [id number] 07/06/2020 12:37:23 07/07/19 21 07/06/2020 urina lysis , dipst ick, auto protein neg negati ve Not Available In-Office Order Internal Use Only DO Not Attach Compendium DO Not Attach Compendium, Do Not Delete/merge, [facility] 07/06/2020 12:37:23 07/07/19 21 07/06/2020 urina lysis , dipst ick, auto pH 6.0 5.0-7. 0 Not Available In-Office Order Internal Use Only DO Not Attach Compendium DO Not Attach Compendium, Do Not Delete/merge, [facility] 07/06/2020 12:37:23 07/07/19 21 07/06/2020 urina lysis , dipst ick, auto blood mod negati ve Not Available In-Office Order Internal Use Only DO Not Attach Compendium DO Not Attach Compendium, Do Not Delete/merge, [facility] 07/06/2020 12:37:23 07/07/1907/06/2020 urina lysis , dipst ick, auto specific gravity 1.015 1.020- 1.035 Not Available In-Office Order Internal Use Only DO Not Attach Compendium DO Not Attach Compendium, Do Not Delete/merge, [facility] 07/06/2020 12:37:23 07/07/19 21 07/06/2020 urina lysis , dipst ick, auto ketone neg negati ve Not Available In-Office Order Internal Use Only DO Not Attach Compendium DO Not Attach Compendium, Do Not Delete/merge, [facility] 07/06/2020 12:37:23 07/07/19 21 07/06/2020 urina lysis , dipst ick, auto bilirubin neg negati ve Not Available In-Office Order Internal Use Only DO Not Attach Compendium DO Not Attach Compendium, Do Not Delete/merge, [facility] 07/06/2020 12:37:23 07/07/19 21 07/06/2020 urina lysis , dipst ick, auto glucose neg negati ve Not Available In-Office Order Internal Use Only DO Not Attach Compendium DO Not Attach Compendium, Do Not Delete/merge, [facility] 07/06/2020 12:37:23 06/20/19 21 06/19/2020 urina lysis , dipst ick, auto leukocytes smalll negati ve Not Available In-Office Order Internal Use Only DO Not Attach Compendium DO Not Attach Compendium, Do Not Delete/merge, [facility] 06/19/2020 14:06:22 06/20/1906/19/2020 urina lysis , dipst ick, auto nitrite neg negati ve Not Available In-Office Order Internal Use Only DO Not Attach Compendium DO Not Attach Compendium, Do Not Delete/merge, [facility] 06/19/2020 14:06:22 06/20/19 21 06/19/2020 urina lysis , dipst ick, auto urobilinogen 0.2 0.2 Not Available In-Of fice Order Internal Use Only DO Not Attach Compendium DO Not Attach Compendium, Do Not Delete/merge, [facility] 06/19/2020 14:06:22 06/20/19 21 06/19/2020 urina lysis , dipst ick, auto protein neg negati ve Not Available In-Office Order Internal Use Only DO Not Attach Compendium DO Not Attach Compendium, Do Not Delete/merge, [facility] 06/19/2020 14:06:22 06/20/19 21 06/19/2020 urina lysis , dipst ick, auto pH 7.0 5.0-7. 0 Not Available In-Office Order Internal Use Only DO Not Attach Compendium DO Not Attach Compendium, Do Not Delete/merge, [facility] 06/19/2020 14:06:22 06/20/1906/19/2020 urina lysis , dipst ick, auto blood modera te negati ve Not Available In-Office Order Internal Use Only DO Not Attach Compendium DO Not Attach Compendium, Do Not Delete/merge, [facility] 06/19/2020 14:06:22 06/20/19 21 06/19/2020 urina lysis , dipst ick, auto specific gravity 1.020 1.020- 1.035 Not Available In-Office Order Internal Use Only DO Not Attach Compendium DO Not Attach Compendium, Do Not Delete/merge, [facility] 06/19/2020 14:06:22 06/20/19 21 06/19/2020 urina lysis , dipst ick, auto ketone neg negati ve Not Available In-Office Order Internal Use Only DO Not Attach Compendium DO Not Attach Compendium, Do Not Delete/merge, Critical [facility] hospital 06/19/2020 14:06:22 06/20/19 21 06/19/2020 urina lysis , dipst ick, auto bilirubin neg negati ve Not Available In-Office Order Internal Use Only DO Not Attach Compendium DO Not Attach Compendium, Do Not Delete/merge, [facility] 06/19/2020 14:06:22 06/20/19 21 06/19/2020 urina lysis , dipst ick, auto glucose neg negati ve Not Available In-Office Order Internal Use Only DO Not Attach Compendium DO Not Attach Compendium, Do Not Delete/merge, Critical [facility] hospital 06/19/2020 14:06:22 04/19/19 21 04/18/2020 urina lysis , dipst ick, auto leukocytes negati ve negati ve Not Available In-Office Order Internal Use Only DO Not Attach Compendium DO Not Attach Compendium, Do Not Delete/merge, Critical [facility] hospital 04/18/2020 17:57:35 04/19/19 21 04/18/2020 urina lysis , dipst ick, auto nitrite negati ve negati ve Not Available In-Office Order Internal Use Only DO Not Attach Compendium DO Not Attach Compendium, Do Not Delete/merge, Critical [facility] 04/18/2020 17:57:35 04/19/19 21 04/18/2020 urina lysis , dipst ick, auto urobilinogen 0.2 0.2 Not Available In-Of fice Order Internal Use Only DO Not Attach Compendium DO Not Attach Compendium, Do Not Delete/merge, [facility] 04/18/2020 17:57:35 04/19/19 21 04/18/2020 urina lysis , dipst ick, auto protein negati ve negati ve Not Available In-Office Order Internal Use Only DO Not Attach Compendium DO Not Attach Compendium, Do Not Delete/merge, Critical [facility] hospital 04/18/2020 17:57:35 04/19/19 21 04/18/2020 urina lysis , dipst ick, auto pH 6.5 5.0-7. 0 Not Available In-Office Order Internal Use Only DO Not Attach Compendium DO Not Attach Compendium, Do Not Delete/merge, Critical [facility] hospital 04/18/2020 17:57:35 04/19/19 21 04/18/2020 urina lysis , dipst ick, auto blood modera te negati ve Not Available In-Office Order Internal Use Only DO Not Attach Compendium DO Not Attach Compendium, Do Not Delete/merge, Critical [facility] hospital 04/18/2020 17:57:35 04/19/19 21 04/18/2020 urina lysis , dipst ick, auto specific gravity 1.010 1.020- 1.035 Not Available In-Office Order Internal Use Only DO Not Attach Compendium DO Not Attach Compendium, Do Not Delete/merge, Critical [facility] hospital 04/18/2020 17:57:35 04/19/19 21 04/18/2020 urina lysis , dipst ick, auto ketone negati ve negati ve Not Available In-Office Order Internal Use Only DO Not Attach Compendium DO Not Attach Compendium, Do Not Delete/merge, Critical [facility] 04/18/2020 17:57:35 04/19/19 21 04/18/2020 urina lysis , dipst ick, auto bilirubin negati ve negati ve Not Available In-Office Order Internal Use Only DO Not Attach Compendium DO Not Attach Compendium, Do Not Delete/merge, Critical [facility] hospital 04/18/2020 17:57:35 04/19/19 21 04/18/2020 urina lysis , dipst ick, auto glucose negati ve negati ve Not Available In-Office Order Internal Use Only DO Not Attach Compendium DO Not Attach Compendium, Do Not Delete/merge, Critical access hospital 04/18/2020 17:57:35 06/20/19 21 06/23/2020 cultu re, urine culture, urine, routine SEE NOTE abnormal CULTU RE, URINE , ROUTI NE Micro Numbe r: [id number] Test Statu s: Final Speci men [...] lexin and lorac arbef . Not Available [facility] [address], [place], [address], 06/23/2020 11:35:28 Result Notes None recorded. Problems Name Problem SNOMED Code Status Onset Date Resolution Date Notes Provider Name and Address Organization Details Recorded Time Common cold 07965771 Active 023 Marina Gaines [employer] [address] [facility] [address], [place], [address] , [facility], [facility] 3 11:45:43 Acute sinusitis 48021655 Active 024 PEPPER VERDUZCO APRN [address], [place], [address] , [facility], [facility] 4 11:00:05 Problem Notes None recorded. Procedures Surgical History Date Name Laterality Status Provider Name and Address Organization Details Recorded Time 0 Date of Last Mammogram completed Donna Hung [facility], [facility] 07/06/2020 12:39:41 8 Walk-In Basic Visit completed MAX Winchester [address], [place], [address], [facility], [facility] 02/23/2017 09:41:43 7 Walk-In Basic Visit completed MILTON Coppola [address], [place], [address], [facility], [facility] 03/04/2016 09:56:25 Knee surgery completed Ronda Glass [facility] 03/04/2016 09:44:06 Imaging Results None recorded. Procedure Notes None recorded. Medical Equipment None Reported. Allergies Allergen ID Allergen Name Allergen Category Reaction Reaction Severity Criticality Documentation Date Start Date Code Code System Note Provider Name and Address Organization Details Recorded Time 219046 Bactrim medicatio n Not available Not available Not available 03/04/2016 92497 9 RxNorm Ronda Glass [facility], [facility] 7 09:42:26 Medications Name Sig Start Date [...] Not Aislinn ilable Not Available Fluarix Quad 6801-8057 (PF) 60 mcg (15 mcg x 4)/0.5 [...] Updated DateTime 1 167.64 cm 32 kg/m2 44461.2 9 g 16 /min 95 /min 98.9 [degF] 96 % 118/68 mm[Hg] Moira Humphries [facility] Physician [facility], [facility] 1 18:13:10 Date Recorded Body height Respiratory rate Body mass index (BMI) Body weight Body temperature Heart rate Oxygen saturation Systolic And Diastolic Provider Name and Address Organization Details Last Updated DateTime 4 167.64 cm 16 /min 33.2 kg/m2 67363.0 3 g 99 [degF] 88 /min 94 % 114/76 mm[Hg] Jane Tamayo [facility], [facility] 4 10:35:32 Date Recorded Body height Respiratory rate Body mass index (BMI) Body weight Body temperature Heart rate Oxygen saturation Systolic And Diastolic Provider Name and Address Organization Details Last Updated DateTime 1 167.64 cm 22 /min 32 kg/m2 58214.2 9 g 97 [degF] 82 /min 98 % 168/97 mm[Hg] Zachariah Miller [facility], [facility] 14:17:15 Date Recorded Body height Body mass index (BMI) Body weight Body temperature Oxygen saturation Heart rate Respiratory rate Systolic And Diastolic Provider Name and Address Organization Details Last Updated DateTime 167.64 cm 33.2 kg/m2 51570 g 98.96 [degF] 97 % 99 /min 16 /min 170/83 mm[Hg] Jordanjulia Hung [facility] 12:42:44 Social History Question Answer Notes LastModified by Organizat ion Details LastModified Time Tobacco Smoking Status Former Smoker Moira [facility]el [facility] 04/18/2020 18:09:27 In The 14 Days Before [...] 50 mcg/0.25mL dose 1 completed Zachariah cavanaugh [facility] 06/19/2020 14:05:53 COVID-19, mRNA, LNP-S, PF, 100 mcg/0.5mL dose or 50 mcg/0.25mL dose 1 completed Zachariah cavanaugh [facility] 06/19/2020 14:05:53 Past Encounters Encounter ID Performer Location Encounter Start Date Encounter Closed Date Diagnosis/Indication Diagnosis SNOMED-CT Code Diagnosis ICD10 Code Diagnosis IMO Codes Diagnosis Note [id number] MILTON Coppola [facility] [address] [place] [address] 03/04/2016 08:54:49 03/04/2016 10:04:58 Acute sinusitis 35865508 J01.90 [id number] [place] [facility] [place] [address] [place] [address] 02/23/2017 09:04:29 02/23/2017 10:02:05 Cystitis 53508489 N30.01 Dysuria 37096749 R30.0 [id number] Jud wilson MD [facility] [address] [place] [address] 03/06/2019 07:53:45 03/06/2019 08:31:41 Acute sinusitis 41295498 J01.90 counseling [id number] MAX Mehta [facility] [place] [address] 04/19/2019 12:41:29 04/19/2019 13:47:50 Acute pharyngitis 782701407 J02.9 I have explained the exam findings and the plan with the pt.She verbalized her understand ing and agreement with the planpositi ve strep A result reviewed with the pt. advised to take prednisone with food. discussed potential side effects of steroid. [id number] Jud wilson MD [facility] [address] [place] [address] 04/18/2020 17:34:36 04/18/2020 18:32:49 Acute urinary tract infection 966704793 N39.0 counseling [id number] Farrukh Dasilva DO [facility] [address] [place] [address] 06/19/2020 14:00:39 06/19/2020 15:17:53 Acute urinary tract infection 669534077 N39.0 Patient's work-up evaluation including urinalysis demonstrat es a urinary tract infection. Patient was started on Macrobid and will follow up with her primary care provider as needed. She expressed understand ing and agreement with this course of action. [id number] JOSE DAVID ALDANA APRN [facility] [address] [place] [address] 07/06/2020 12:28:20 07/06/2020 13:41:47 Acute recurrent cystitis 813346085 N30.00 Patient will follow up with [place] urologist [place] if she continues to have the recurrent UTIs as she had about 5 years ago. MDM: Reviewed old records, Reviewed lab tests, Reviewed radiograph ic tests. Risk of complicati ons/comorb idities: low/Mod. Medication s and/or treatments today should not present a contraindi cation. Dysuria 39549443 R30.9 Urgent jeremias chula to urinate 22333100 R39.15 Long-term drug therapy 154244820 Z79.899 Multiple comorbidit ies, todays treatment/ tests-no apparent contraindi cations Microscopic hematuria 19 4217082 R31.29 Patient has had this in the past, she has been to urology 5 years ago for frequent UTIs and her cystoscopy was totally normal. [id number] MAX Wolf [facility] [place] [address] [facility] [address] [facility] [place] [address] 05/13/2022 11:14:42 05/15/2022 11:27:47 Common cold 25286447 J00 new onset; will have pt try Zyrtec and Flonase if needed; Ibuprofen ok for short term. Take rapid covid test, if negative then consider PCR if sxs worsen; she can get done at [facility] or [facility]. Reminded that common cold can last 7-10 days and the body takes care of the symptoms but if worsening after that, then may be going into a sinus infection that may then need antibiotic s. Pt needs to establish with PCP, given names of local providers at [place]. [id number] [facility] [address] [place] [address] 04/20/2023 08:54:36 04/20/2023 11:02:48 Acute sinusitis 28160680 J01.90 drink plenty of fluidszyrt ec 10mg [...] PAY* Milton veliz Beauchemin 03/06/2019 1 [employer] [id number] Verena Beauchemin [id number] Verena Beauchemin 04/20/2023 2 [place] ([facility]) [id number] Verena L Beauchemin [id number] Verena Beauchemin 04/20/2023 1 [place] Verena L Beauchemin [id number] Verena Beauchemin Notes Date Note Type [...] have you received? 1 dose Imported from [facility] on 04/18/2020 QUALITY MEASURE QUESTIONNAIRE Are you a diabetic patient No Has the Patient previously received any type of colorectal cancer screener Yes Please confirm which of the following colorectal screeners the Patient has received in the past Colonoscopy Please enter the date you received your last Colonoscopy 09/07/2019 Please enter the result you received for your last Colonoscopy Benign Polyp Imported from [facility] on 04/18/2020 urinary problems started 2 days ago-frequency,pressure in bladder,urgency,no burning sensation,no fever or chills,,no flank pain,no abdominal pain,Bm normal,no diarrhea,no nausea or vomiting,no Hx of kidney stones or kidney disease,pushed cranberry juice and fluids,no Hx of reccurent UTI,no smoking Jud Sorensen MD [address] [address], [place], [address], [facility] - [facility], [facility] 04/18/2020 18:31:10 06/19/2020 text/html ROS as noted [...] have you received? 2 doses Imported from [facility] on 06/19/2020 QUALITY MEASURE QUESTIONNAIRE Mammogram Results Negative Imported from [employer] on 06/19/2020 Farrukh Dasilva DO [address], [place], [address], [facility], [facility] 06/19/2020 14:29:46 07/06/2020 text/html complaintRepo rted by [...] have you received? 2 doses Imported from [facility] on 07/06/2020 JOSE DAVID ALDANA APRN [address], [place], [address], [facility] Physician [facility], [employer] 07/06/2020 13:11:12 05/13/2022 text/html SinusitisReporte d by [...] verbal consent to telehealth visit. MAX Wolf [address], [place], [address], [facility] - [facility], [employer] 05/13/2022 11:46:12 04/20/2023 text/html SinusitisReporte d by [...] tested positive for COVID-19? No Imported from [facility] on 03/25/2022 QUALITY MEASURE QUESTIONNAIRE Are you a diabetic patient No Please enter the approximate date of your last Pap Smear 01/01/2022 PAP Results Negative Did you have a partial hysterectomy or total hysterectomy Have not had a Hysterectomy Imported from [facility] on 03/25/2022 PEPPER VERDUZCO, ZACHARY [address], [place], [address], [facility] - [facility], [facility] 04/20/2023 11:00:44 OBGyn Episode No OBEpisode recorded.
--- OUTSIDE RECORDS SUMMARY | 2025-01-27 07:12 | XMS_ITS | Continuity of Care Document ---
Author Organization [facility] Address [address] [facility] [place] [address] [place] [address] Assessment No assessment recorded. Plan of Treatment Reminders Order Date Submit Date Provider Last Modified By Organization Details Last Modified Time Details Appointments FOLLOW UP 15 2025 01:30P M EDILBERTO CLEMENS Not available Not available Not available MEDICARE ANNUAL WELLNESS 2025 01:30P M EDILBERTO CLEMENS Not available Not available Not available Lab lipid panel, serum 2024 025 [facility], [address] [place] [address], [id number], 01/16/2025 13:55:18 CMP, serum or plasma 2024 025 [facility], [address] [place] [address], [id number], 01/16/2025 13:55:18 CBC w/ auto diff 2024 025 [facility], [address] [place] [address], [id number], 01/16/2025 13:55:18 TSH + free T4, serum 2024 025 [facility], [address] [place] [address], [id number], 01/16/2025 13:55:18 Referral None recorded. Procedures None recorded. Surgeries None recorded. Imaging None recorded. Medication Orders [facility]in 500 [facility] [place] [address], 01/19/2025 08:15:57 lisinopri l 20 mg-hydroc hlorothia zide 25 mg tablet 2024 [facility] [place], [address], 01/16/2025 13:47:04 metoprolo l succinate ER 25 mg tablet,ex tended release 24 hr 2024 [facility] [place], [address], 01/16/2025 13:47:03 simvastat in 20 mg tablet 2024 025 [facility], [facility], EDILBERTO Devries, [address], 01/16/2025 13:47:02 omeprazol e 20 mg capsule,d elayed release 2024 025 [facility] [place], [address], 01/16/2025 13:47:05 Synthroid 88 mcg tablet 2024 025 [facility] [place], [address], 01/16/2025 13:47:02 Patient TargetsNo targets recorded. Patient InstructionsNo instructions recorded. Reason for Referral None Reported. Problems Name Problem SNOMED Code Status Onset Date Resolution Date Notes Provider Name and Address Organization Details Recorded Time Hypothyr oidism 10929326 Active 2017 Dr. Brenner Not Available [facility] 10:30:15 [facility] hyperten nury 90013571 Active 2017 Not Available 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 2 10:30:15 Hypercho lesterol emia 72052109 Active 2017 Not Available [facility] 2 10:30:15 Gastroes ophageal reflux disease 486306162 Active 2017 Not Available [facility] 2 10:30:15 Osteoart hritis of knee 239698406 Active 2017 left Not Available [facility] 2 10:30:15 Tinea corporis 50255087 Active 2021 EDILBERTO CLEMENS [address] [place], [address], [facility] 2 13:44:24 Streptoc occal infectio us disease 60068893 Active 2023 EDILBERTO CLEMENS [address] [place], [address], [facility] 4 10:47:18 Acute urinary tract infectio n 662213262 Active 2023 EDILBERTO CLEMENS [address] [place], [address], [facility] 4 10:47:23 Sore throat 616366041 Active 2023 EDILBERTO CLEMENS [address] [place], [address], [facility] 4 10:49:11 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 Procedures Surgical History Date Name Laterality Status Provider Name and Address Organization Details Recorded Time 07/14/19 20 Date of Last Pap Smear completed Mylene Thomas [facility] 07/18/2019 08:41:45 01/13/20 17 Most Recent Mammogram completed Jyotsna Mack NP, [address] [place] [address], [phone], [facility] 11/28/2017 09:10:08 10/14/19 16 Arthroscopic Surgery completed Jyotsna Mack NP, [address] [place] [address], [phone], [facility] 06/01/2017 08:57:31 lumpectomy of left breast completed May CAMILLE Perez [address] [place], [address], [facility] 11/20/2018 09:52:33 Imaging Results None recorded. Procedure Notes None recorded. Medical Equipment None Reported. Allergies Allergen ID Allergen Name Allergen Category Reaction Reaction Severity Criticality Documentation Date Start Date Code Code System Note Provider Name and Address Organization Details Recorded Time 77726 sulfameth oxazole / trimethop rim medicatio n Not available Not available Not available 01/16/2025 45487 RxNorm Not Available [facility] [employer] [facility] - prod 5 02:59:16 53888 Bactrim medicatio n Not available Not available Not available 01/16/2025 42961 9 RxNorm Not Available [facility] [employer] [facility] - prod 5 02:59:54 1626 amoxicill in medicatio n Not available Not available Not available 07/30/2017 723 RxNorm Rupali cavanaugh [facility] 8 11:51:00 970 Substance with sulfonami de structure and antibacte rial mechanism of action (substanc e) medicatio n Not available Not available Not available 05/30/2017 69130 8003 SNOMED Jyotsna Mack, VERONIQUE, [address] [place], [address], [facility] 8 10:01:34 Medications Name Sig Start Date [...] 1 TABLET BY MOUTH EVERY DAY NEEDED 01/16 completed Not Available Not Available Not Available alclometa sone 0.05 % topical cream 01/16 completed Not Available Not Available Not Available clobetaso l 0.05 % topical cream PLEASE SEE ATTACHED FOR DETAILED DIRECTIO NS 01/16 completed Not Available Not Available Not Available penicilli n V potassium 500 mg tablet 06/01 completed Not Available Not Available Not Available ciproflox acin 500 mg tablet TAKE 1 TABLET BID BY ORAL ROUTE FOR 14 DAYS. 2024 active Not Available Not Available Not Avai lable tramadol 50 mg tablet 1 TABLET NEEDED ORALLY TWICE DAILY *AMOUNT PER INSURANC E* 01/16 completed Not Available Not Available Not Available triamcino lone acetonide 0.1 % topical cream Apply 1 applicat ion every day by topical route as needed for 30 days. 11/28 completed Not Available Not Available Not Available levothyro xine 100 mcg tablet 06/01 completed Not Available Not Available Not Available imiquimod 5 % topical cream packet APPLY TO SPOT ON MID BACK LESION EVERY SUN-SUN- SUN FOR 12-16 WEEKS 01/16 completed Not Available Not Available Not Available cephalexi n 500 mg capsule Take 1 capsule 3 times a day by oral route. 07/13 completed Not Available Not Available Not Available simvastat in 20 mg tablet TAKE 1 TABLET BY MOUTH DAILY 2024 active Not Available Not Available Not Avai lable erythromy izzy 5 mg/gram (0.5 %) eye ointment 11/28 completed Not Available Not Available Not Available clotrimaz ole-betam ethasone 1 %-0.05 % topical cream APPLY SMALL AMOUNT TO AFFECTED AREA TWICE A DAY NEEDED 45GM/30 DAYS PER INS)15 01/16 completed Not Available Not Available Not Available prednison e 50 mg tablet 07/10 completed Not Available Not Available Not Available Synthroid 88 mcg tablet TAKE ONE TABLET QD PO 2024 active Not Available Not Available Not Avai lable Synthroid 75 mcg tablet 08/09 completed Not Available Not Available Not Available omeprazol e 20 mg capsule,d elayed release Take 1 capsule every day by oral route as directed for 90 days. 2024 active Not Available Not Available Not Avai lable lisinopri l 20 mg-hydroc hlorothia zide 25 mg tablet TAKE 1 TABLET BY MOUTH DAILY 2024 active Not Available Not Available Not Avai lable metoprolo l succinate ER 25 mg tablet,ex tended release 24 hr TAKE 1 TABLET TWICE A DAY 2024 active Not Available Not Available Not Avai lable estradiol 0.01% (0.1 mg/gram) vaginal cream INSERT 1 GRAM VAGINALL Y NIGHTLY FOR 1 WEEK, THEN TWICE A WEEK active Not Available Not Available No t Available methylpre dnisolone 4 mg tablets in a dose pack 07/10 completed Not Available Not Available Not Available betametha sone dipropion ate 0.05 % lotion APPLY TO ITCHY AREAS ON SCALP TWICE A DAY NEEDED 01/16 completed Not Available Not Available Not Available doxepin 5 % topical cream 06/01 [...] and Address Organization Details Last Updated DateTime 5 165.1 cm 31.6 kg/m2 04664.5 5 g 91 /min 98 % 130/70 mm[Hg] [facility] 5 13:38:04 Social History Question Answer Notes LastModified by [employer] Details LastModified Time Tobacco Smoking Status Former Smoker Not Available [facility] 12/16/2019 03:36:24 What Was The Date Of Your Most Recent Tobacco Screening? 01/15/2024 [email or web address] Information not available 01/15/2024 How Much Tobacco Do You Smoke? 1 PPW [id number] Information not available 12/16/2019 How Many Years Have You Smoked Tobacco? 10 [id number] Information not available 12/16/2019 Sex: Female Functional Status Question Answer Note LastModified by [employer] Details LastModified Time Do you or have you ever used smokeless tobacco? Never used smokeless tobacco [email or web address] Information not available 08/09/2022 Do you or have you ever used e-cigarettes or vape? Never used electronic cigarettes [email or web address] Information not available 08/09/2022 Mental Status None recorded. Family History Relationship Description Onset Age of this Age Resolved Age Notes LastModified by Organization Details LastModified Time Father Myocardial infarction 68 88 [email or web address] Not available 11/28 09:26:49 Father Atrial fibrillation [email or web address] Not available 04/2023 11:34:32 Father Cerebrovascu lar accident [email or web address] Not available 09:50:55 Mother Atrial fibrillation Not available 04/2023 11:34:32 Brother Myocardial infarction 60 [email or web address] Not available 10/2018 09:38:15 Maternal Uncle Diabetes mellitus [email or web address] Not available 11/20 09:51:28 Maternal Uncle Malignant neoplasm of colon [email or web address] Not available 2023 11:34:32 Medical History Condition Response Coronary Artery Disease N Gout N Hyperthyroidism N Breast Cancer Y Thyroid Problems Y GI Problems N Lung Disease N Depression N Defects or Inherited Disease N Anemia N Difficulty Swallowing N Anesthesia Complications N Anxiety Disorder N Meniere's disease N Ovarian Cancer N Diabetes N Obesity Y Vision or Eye Problems N Arthritis Y Seizures/Epilepsy N Mental Disorder N Tuberculosis N Congestive Heart Failure (CHF) N Stroke N Abuse/Domestic Violence N Diverticulitis N Bladder or Kidney Problems Y Reflux/GERD Y High Cholesterol Y Hepatitis N Liver Disease N Heart Disease N Fibromyalgia N Hypertension Y Chicken Pox Y Autism Spectrum Disorder (ASD) N Osteoporosis N Kidney Disease N Gynecological History Statement/Question [...] 50 mcg/0.25mL dose 1 completed Ada Gencarelle afshan [facility] 08/09/2022 09:55:44 zoster live 8 completed Lizett cavanaugh [facility] 11/26/2019 08:57:48 COVID-19, mRNA, LNP-S, PF, 100 mcg/0.5mL dose or 50 mcg/0.25mL dose 2 completed Ada Gencarelle afshan [facility] 08/09/2022 09:55:44 Influenza, split virus, quadrivalent, preservative 7 completed Ada Gencarelle [facility] 08/09/2022 09:55:44 Pneumococcal conjugate PCV 13 9 completed Ada Gencarelle [facility] 08/09/2022 09:55:44 Influenza, split virus, quadrivalent, preservative 9 completed Ada Gencarelle [facility] 08/09/2022 09:55:44 zoster live 8 completed Lizett White [facility] 11/26/2019 08:57:48 Tdap 6 completed Lizett White [facility] 11/26/2019 08:57:48 Influenza, split virus, quadrivalent, preservative 0 completed Ada Gencarelle [facility] 08/09/2022 09:55:44 COVID-19, mRNA, LNP-S, PF, 100 mcg/0.5mL dose or 50 mcg/0.25mL dose 1 completed Ada Gencarelle [facility] 08/09/2022 09:55:44 COVID-19, mRNA, LNP-S, PF, 100 mcg/0.5mL dose or 50 mcg/0.25mL dose 1 completed Ada Gencarelle [facility] 08/09/2022 09:55:44 Past Encounters Encounter ID Performer Location Encounter Start Date Encounter Closed Date Diagnosis/Indication Diagnosis SNOMED-CT Code Diagnosis ICD10 Code Diagnosis IMO Codes Diagnosis Note [id number] EDILBERTO CLEMENS [facility] [address] [facility],[place] [address] 01/16/2025 13:20:53 01/19/2025 10:07:12 Depression screening 835747549 Z13.31 SCREENING NEGATIVE Acute urin augustus tract infection 796924738 N39.0 needs prior to vacation, no medical available where she is goinghas hx of UTIs Gastroesop hageal reflux disease 076618220 K21.9 needs refills Hypercholesterolemia 136 95982 E78.2 will get bw from lab and fu with results Essential hypertension 59428401 I10 BP excellent Hypothyroidism 18376399 E03.9 will fu with lab work and fu to fax to her endocrinol ogist Health Concerns Section Related Observation LastModified by Organization Ekaterina ls LastModified Time None Recorded Concern Status LastModified by Organization Details LastModified Time None Recorded Payers Encounter Date Sequence Insurance Name Policy Number Policy Chapman Covered Member ID Chapman Member ID Guarantor Name 01/16/2025 1 [place] [email or web address] Verena Camacho [id number] Stas Camacho 01/16/2025 2 [place] [id number] Verena Camacho [id number] Stas Camacho Notes Date Note Type Note Provider Name a nd Address Organization Details Recorded Time 5 text/html Medicare Annual Wellness VisitReported by PatientSocial/Behavi oral HistoryFor diet and nutrition, patient reportshealthy diet,discussed vitamin and supplement use,discussed portion control,discussed maintaining calcium balance, anddiscussed diet improvement. For fracture risk, patient reportsno history of fractures,no recent explained fracture,no sudden unexplained fractures, andno previous musculoskeletal injuries. For physical activity, patient reportsexercises on a regular basis,recent increase in physical activity, andgood physical condition.Mental Status:For depression risk, patient reportsnever feels sad, empty, or tearful,no loss of interest in activities,no significant changes in weight,no sleep disturbances or insomnia,no agitation,no loss of energy,no feelings of worthlessness or guilt,no thoughts of suicide,no history of depression, andno history of mood disorders. For orientation, patient reportsno disorientation to time,no disorientation to date, andno disorientation to place. For concentration and memory, patient reportsno decreased concentrating ability,no memory lapses or loss, anddoes not forget words. For speech/motor difficulties, patient reportsno speech difficulties,no difficulty expressing formulated concepts,no difficulty with fine manipulative tasks,no difficulty writing/copying,no slowed reaction time, anddoes not knock things over when trying to pick them up.Functional AbilityFor hearing, patient reportsno loss of hearing. For vision, patient reportsno vision problems. For activities of daily living, patient reportsable to bathe with limited or no assistance,able to contol urination and bowels,able to dress with limited or no assistance,able to feed self with limited or no assistance,able to get out of chair or bed with limited or no assistance,able to groom with limited or no assistance, andable to toilet with limited or no assistance. For instrumental activities of daily living, patient reportsable to do house work with limited or no assistance,able to grocery shop with limited or no assistance,able to manage medications with limited or no assistance,able to manage money with limited or no assistance,able to prepare meals with limited or no assistance, andable to use the phone with limited or no assistance. For falls risk assessment, patient reportsno frequent falls while walking,no fall in the past year,no fall since last visit, andno dizziness/vertigo. For home safety, patient reportsno unsafe ted hazzards,no unsafe stairs,no unsafe gas appliances,working smoke/co detectors,wears protective head gear for biking/high velocity,use of seatbelts,practicing 'safer sex',no vision or hearing loss while driving,no fire arms,has hand bars in the bathroom/shower, andgood lighting in the home.ROS as noted in the HPI EDILBERTO CLEMENS [address] [facility], [place], [address], [facility] 01/16/2025 13:59:38 OBGyn Episode No OBEpisode recorded.
--- OUTSIDE RECORDS SUMMARY | 2025-01-27 07:12 | XMS_ITS | Data Portability ---
Author Organization [facility], Telehealth Patient Home Address [address] [place] [address] Assessment Encounter Date Assessment Date Assessment LastModified [...] available Lab lipid panel, serum 2024 025 [facility], [address] [place] [address], [place], [address], 01/16/2025 13:55:18 CMP, serum or plasma 2024 025 [facility], [address] [place] [address], [place], [address], 01/16/2025 13:55:18 CBC w/ auto diff 2024 025 [facility], [address] [place] [address], [place], [address], 01/16/2025 13:55:18 TSH + free T4, serum 2024 025 [facility], [address] [place] [address], [address], 01/16/2025 13:55:18 lyme disease igg+igm, serum, reflex western blot 2023 024 [facility] [address], [address], 10/16/2023 14:15:57 anaplasma phagocyto philum + ehrlichia chaffeens is DNA panel, blood 2023 024 [facility] [address], [address], 10/19/2023 15:51:43 culture, throat 2023 024 [facility], [address] [place] [address], [place], [address], 10/03/2023 11:33:05 rapid strep group A, throat 2023 024 [facility], [address] [facility], [address], [place], [address], 10/02/2023 10:48:13 streptoco ccus group A, culture, throat 2023 024 [facility], [address] [place] [address], [place], [address], 10/09/2023 09:59:25 lipid panel, blood 2022 023 [facility], [address] [place] [address], [place], [address], 09/15/2022 11:18:25 CMP, serum or plasma 2022 023 [facility], [address] [place] [address], [address], 09/15/2022 11:18:24 CBC w/ auto diff 2022 023 [facility], [address] [place] [address], [place], [address], 09/15/2022 11:18:25 TSH + free T4, serum 2022 023 [facility], [address] [place] [address], [address], 09/15/2022 11:18:25 HbA1c (hemoglob in A1c), blood 2022 023 [facility], [address] [place] [address], [place], [address], 09/15/2022 11:18:25 Referral orthopedi c surgeon referral - dislocate d R shoulder, needs eval and PT 2023 024 [facility]opedic Surgeon, [address], [place], [address], 01/15/2024 16:11:05 Procedures None recorded. Surgeries None recorded. Imaging None recorded. Medication Orders ciproflox acin 500 mg tablet 2024 025 [facility], [facility], EDILBERTO Devries, [address], 01/19/2025 08:15:57 lisinopri l 20 mg-hydroc hlorothia zide 25 mg tablet 2024 025 [facility] [place], [address], 01/16/2025 13:47:04 metoprolo l succinate ER 25 mg tablet,ex tended release 24 hr 2024 025 [facility], [facility] [place], [address], 01/16/2025 13:47:03 simvastat in 20 mg tablet 2024 025 [facility], [facility] [place], [address], 01/16/2025 13:47:02 omeprazol e 20 mg capsule,d elayed release 2024 025 [facility], [facility] [place], [address], 01/16/2025 13:47:05 Synthroid 88 mcg tablet 2024 025 [facility], [facility] [place], [address], 01/16/2025 13:47:02 clotrimaz ole-betam ethasone 1 %-0.05 % topical cream 2023 024 [email or web address] [facility] #[id number], [address] [place], [address], 01/16/2025 13:42:00 doxycycli ne hyclate 100 mg tablet 2023 024 manjit [facility] #[id number], [address] [place], [address], 01/15/2024 11:45:10 ciproflox acin 500 mg tablet 2023 024 [email or web address] [facility] #[id number], [address] [place], [address], 01/15/2024 11:44:41 Patient TargetsNo targets recorded. Patient InstructionsNo instructions [...] throa t Strep negati ve Not Available [facility] [address] [facility] [address], [place], [address], 10/02/2023 10:20:33 01/05/20 24 01/04/2024 XR, shoul norma No observ ation record ed. [facility] (Medical Records) [address] [place] [address], [address], 01/06/2024 12:56:45 01/05/20 24 01/04/2024 XR, shoul norma No observ ation record ed. [facility] (Medical Records) [address] [place] [address], [address], 01/06/2024 12:56:56 Result Notes None recorded. Problems Name Problem SNOMED Code Status Onset Date Resolution Date Notes Provider Name and Address Organization Details Recorded Time Hypothyr oidism 92387632 Active 2017 Dr. Brenner Not Available [facility] 2 10:30:15 [facility] l hyperten nruy 22559700 Active 2017 Not Available [employer] 2 10:30:15 Personal history of primary malignan t neoplasm of breast 330998806 Active 2017 LCIS - s/p tamoxifen x 5 years Not Available [facility] 2 10:30:15 Hypercho lesterol emia 57554412 Active 2017 Not Available [facility] 2 10:30:15 Gastroes ophageal reflux disease 436570704 Active 2017 Not Available [facility] 2 10:30:15 Osteoart hritis of knee 809759875 Active 2017 left Not Available [facility] 2 10:30:15 Tinea corporis 41834252 Active 2021 EDILBERTO CLEMENS [address] [place], [address], [facility] 2 13:44:24 Streptoc occal infectio us disease 68957310 Active 2023 EDILBERTO CLEMENS [address] [place], [address], [facility] 4 10:47:18 Acute urinary tract infectio n 866702165 Active 2023 EDILBERTO CLEMENS [address] [place], [address], [facility] 4 10:47:23 Sore throat 215372951 Active 2023 EDILBERTO CLEMENS [address] [place], [address], [facility] 4 10:49:11 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 Procedures Surgical History Date Name Laterality Status Provider Name and Address Organization Details Recorded Time 07/14/19 20 Date of Last Pap Smear completed Mylene Thomas [facility] 07/18/2019 08:41:45 01/13/20 17 Most Recent Mammogram completed Jyotsna Mack NP, S [address] [place], [address], [facility] 11/28/2017 09:10:08 10/14/19 16 Arthroscopic Surgery completed Jyotsna Mack NP, S [address] [place] [address], [address], [facility] 06/01/2017 08:57:31 lumpectomy of left breast completed May ChrisHUY doanNELSON [address] [place] [address], [address], [facility] 11/20/2018 09:52:33 Imaging Results None recorded. Procedure Notes None recorded. Medical Equipment None Reported. Allergies Allergen ID Allergen Name Allergen Category Reaction Reaction Severity Criticality Documentation Date Start Date Code Code System Note Provider Name and Address Organization Details Recorded Time 21724 sulfameth oxazole / trimethop rim medicatio n Not available Not available Not available 01/16/2025 79254 RxNorm Not Available [employer] - prod 5 02:59:16 73178 Bactrim medicatio n Not available Not available Not available 01/16/2025 77991 9 RxNorm Not Available [employer] - prod 5 02:59:54 1626 amoxicill in medicatio n Not available Not available Not available 07/30/2017 723 [facility] 8 11:51:00 970 Substance with sulfonami de structure and antibacte rial mechanism of action (substanc e) medicatio n Not available Not available Not available 05/30/2017 50710 8003 SNOMED Jyotsna Mack NP, S [address] [place], [address], [facility] Internal [facility] 8 10:01:34 Medications Name Sig Start Date [...] TO SPOT ON MID BACK LESION EVERY SUN-WED- FRI FOR 12-16 WEEKS 01/16 completed Not Available [...] Updated DateTime 3 165.1 cm 34.4 kg/m2 22271.6 2 g 81 /min 98 % 144/78 mm[Hg] Constanza Joy [facility] 3 10:01:49 Date Recorded Body weight Heart rate Oxygen saturation Systolic And Diastolic Provider Name and Address Organization Details Last Updated DateTime 10/02/2023 40779.52 g 73 /min 98 % 132/78 mm[Hg] [facility] 10/02/2023 10:22:19 Date Recorded Heart rate Oxygen saturation Systolic And Diastolic Provider Name and Address Organization Details Last Updated DateTime 10/16/2023 71 /min 97 % 122/68 mm[Hg] [facility] 10/16/2023 13:55:38 Date Recorded Body height Body mass index (BMI) Body weight Heart rate Oxygen saturation Systolic And Diastolic Provider Name and Address Organization Details Last Updated DateTime 4 165.1 cm 31.6 kg/m2 89527.5 5 g 90 /min 98 % 120/76 mm[Hg] Constanza Joy [facility] Internal [facility] 4 11:47:28 Date Recorded Body height Body mass index (BMI) Body weight Heart rate Oxygen saturation Systolic And Diastolic Provider Name and Address Organization Details Last Updated DateTime 5 165.1 cm 31.6 kg/m2 98921.5 5 g 91 /min 98 % 130/70 mm[Hg] Constanza Joy [facility] 5 13:38:04 Social History Question Answer Notes LastModified by Organizat ion Details LastModified Time Tobacco Smoking Status Former Smoker Not Available [facility] 12/16/2019 03:36:24 What Was The Date Of Your Most Recent Tobacco Screening? 01/15/2024 [email or web address] Information not available 01/15/2024 How Much Tobacco Do You Smoke? 1 PPW [id number] Information not available 12/16/2019 How Many Years Have You Smoked Tobacco? 10 [id number] Information not available 12/16/2019 Sex: Female Functional Status Question Answer Note LastModified by Organizat ion Details LastModified Time Do you or have you ever used smokeless tobacco? Never used smokeless tobacco [email or web address] Information not available 08/09/2022 Do you or have you ever used e-cigarettes or vape? Never used electronic cigarettes [email or web address] Information not available 08/09/2022 Mental Status None recorded. Family History Relationship Description Onset Age of this Age Resolved Age Notes LastModified by Organization Details LastModified Time Father Myocardial infarction 68 88 [email or web address] Not available 11/28 09:26:49 Father Atrial fibrillation [email or web address] Not available 04/2023 11:34:32 Father Cerebrovascu lar accident [email or web address] Not available 09:50:55 Mother Atrial fibrillation Not available 04/2023 11:34:32 Brother Myocardial infarction 60 [email or web address] Not available 10/2018 09:38:15 Maternal Uncle Diabetes mellitus [email or web address] Not available 11/20 09:51:28 Maternal Uncle Malignant neoplasm of colon [email or web address] Not available 2023 11:34:32 Medical History Condition [...] 50 mcg/0.25mL dose 1 completed [facility] 08/09/2022 09:55:44 zoster live 8 completed [facility] 11/26/2019 08:57:48 COVID-19, mRNA, LNP-S, PF, 100 mcg/0.5mL dose or 50 mcg/0.25mL dose 2 completed Ada Gencarelle null, [facility] 08/09/2022 09:55:44 Influenza, split virus, quadrivalent, preservative 7 completed [facility] 08/09/2022 09:55:44 Pneumococcal conjugate PCV 13 9 completed Ada Gencarelle [facility] 08/09/2022 09:55:44 Influenza, split virus, quadrivalent, preservative 9 completed [facility] 08/09/2022 09:55:44 zoster live 8 completed Lizett White [facility] 11/26/2019 08:57:48 Tdap 6 completed Lizett White [facility] 11/26/2019 08:57:48 Influenza, split virus, quadrivalent, preservative 0 completed [facility] 08/09/2022 09:55:44 COVID-19, mRNA, LNP-S, PF, 100 mcg/0.5mL dose or 50 mcg/0.25mL dose 1 completed [facility] 08/09/2022 09:55:44 COVID-19, mRNA, LNP-S, PF, 100 mcg/0.5mL dose or 50 mcg/0.25mL dose 1 completed Ada Gencarelle [facility] 08/09/2022 09:55:44 Past Encounters Encounter ID Performer Location Encounter Start Date Encounter Closed Date Diagnosis/Indication Diagnosis SNOMED-CT Code Diagnosis ICD10 Code Diagnosis IMO Codes Diagnosis Note [id number] Erik Lizama [facility] [address],[place] [address] 06/01/2017 10:05:20 06/01/2017 11:30:58 Essential hypertension 15393400 I10 stable Tinea corporis 85370787 B35.4 Hypothyroidism 94507788 E03.9 stable up to date Dr. Brenner Personal h istory of primary malignant neoplasm of breast 648643919 Z85.3 up to date at [facility] Urinary tr act infectious disease 70905373 N39.0 [id number] Erik Lizama [facility] [address],[place] [address] 07/13/2017 10:09:52 07/13/2017 11:04:32 Gastroesophageal reflux disease 863062468 K21.9 Tachycardia 5958875 R00. 0 f/u in office 2 weeks, may start beta blockade [id number] Erik Lizama [facility] [address],[place] [address] 07/30/2017 11:43:24 07/30/2017 13:28:49 Acute cystitis 25746396 N30.00 call if no better Gastroesop hageal reflux disease 646924256 K21.9 [id number] Erik Lizama [facility] [address],[place] [address] 11/28/2017 08:49:57 11/28/2017 14:09:34 Adult health examination 490065280 Z00.00 Active or passive immunization 182693342 Z23 had flu and shingrix at [facility] Tinea corporis 70066753 B35.4 Gastroesop hageal reflux disease 773851347 K21.9 controlled with omeprazole Hypercholesterolemia 136 67975 E78.00 Reviewed labs Personal h istory of primary malignant neoplasm of breast 197921469 Z85.3 up to date at [facility] Essential hypertension 77489643 I10 stable Hypothyroidism 38343816 E03.9 stable up to date Dr. Brenner, nml labs [id number] Erik Lizama [facility] [address] [facility] [address] [address] 05/29/2018 08:56:48 05/29/2018 09:36:40 Gastroesophageal reflux disease 393568214 K21.9 controlled with omeprazole Tinea corporis 39722361 B35.4 Hypercholesterolemia 136 54534 E78.00 Essential hypertension 30838930 I10 stable Hypothyroidism 20284407 E03.9 stable up to date Dr. Brenner, nml labs Acute cystitis 85137964 N30.00 call if no better Family his tory of coronary arteriosclerosis 862040761 Z82.49 [id number] Erik Lizama [facility] [address],[place] [address] 11/20/2018 09:07:45 11/20/2018 10:41:46 Gastroesophageal reflux disease 776047646 K21.9 Hypercholesterolemia 136 58374 E78.00 Essential hypertension 96726463 I10 Adult heal th examination 294364741 Z00.00 Screening mammography 24 095629 Z12.31 Decreased estrogen level 027338633 E28.39 Vitamin D deficiency 347 00345 E55.9 Body mass index 30+ - obesity 234297554 Z68.30 Restless l egs syndrome 85590069 G25.81 Family his tory of ischemic heart disease 846160672 Z82.49 was recommende d to have cardiac calcium scoring [id number] Erik Lizama [facility] [address],[place] [address] 07/11/2019 09:34:17 07/11/2019 10:26:09 Hypothyroidism 78460800 E03.9 gets blood work getting done with endocrinol ogist Hypercholesterolemia 136 55562 E78.00 will get bw Essential hypertension 19579756 I10 excellent control on current medication [id number] Erik Lizama [facility] [address] [facility] [address] [address] 11/26/2019 08:54:45 11/26/2019 10:10:42 Gastroesophageal reflux disease 379625017 K21.9 needs refills Essential hypertension 58288188 I10 excellent control on current medication BP is 116/80 Hypercholesterolemia 136 85486 E78.00 will get bw from lab, had it done but not showing up in system for some reason Adult heal th examination 804217634 Z00.00 patient had blood had blood [facility] [id number] Erik Lizama [facility] [address] [facility] [address] [address] 08/02/2020 09:53:46 08/02/2020 11:02:14 Essential hypertension 03138923 I10 excellent control on current medication BP is 118/60 Hypercholesterolemia 136 97803 E78.00 will get bw from lab and fu with results Hypothyroidism 97532477 E03.9 will fu with lab work and fu to fax to her endocrinol ogist Urinary tr act infectious disease 42122019 N39.0 gets UTI during vacation, will be going on vacation soon [id number] [facility] [address],[place] [address] 01/27/2022 13:24:03 01/27/2022 16:09:38 Active or passive immunization 453905357 Z23 patient advised he is due for flu shot & pneu 23 Adult [facility] th examination 758312933 Z00.00 stable vitals Advance care planning 71 8095734 Z71.89 advised Tinea corporis 87197159 B35.4 refillsent [id number] [facility] [address] [facility] [address] [place] [address] 08/09/2022 09:55:31 08/09/2022 10:22:05 Essential hypertension 02431056 I10 Hypercholesterolemia 136 14958 E78.2 will get bw from lab and fu with results Hypothyroidism 50177341 E03.8 will fu with lab work and fu to fax to her endocrinol ogist Family his tory of diabetes mellitus 483839610 Z83.3 Fall W19.XXXD [id number] Erik Lizama [facility] [address], [place] [address] 10/02/2023 10:12:37 10/02/2023 11:18:59 Sore throat 763275496 J02.9 will send out throat swab Depression screening 171 503723 Z13.31 SCREENING NEGATIVE Streptococ jeff infectious disease 13083135 B95.3 neg [place] out culture Acute urin augustus tract infection 448677202 N39.0 needs prior to vacation, no medical available where she is goinghas hx of UTIs [id number] Erik Lizama [facility] [address], [place] [address] 10/16/2023 13:49:32 10/16/2023 15:05:41 Tinea corporis 32445409 B35.4 refillsent in for patient Bull's eye maculopathy 472755187 H35.30 will set up from lab-work [id number] Erik Lizama [facility] [address] [address] 01/15/2024 11:34:23 01/15/2024 14:52:17 Pain of right shoulder joint 5947866864 7525737 M25.511 needs ortho eval and PT Adult heal th examination 073635317 Z00.00 BP is stable Insomnia 860137679 F51.0 1 suggested APAP PM to try [id number] EDILBERTO CLEMENS [facility] [address],[place] [address] 01/16/2025 13:20:53 01/19/2025 10:07:12 Depression screening 763634937 Z13.31 SCREENING NEGATIVE Acute urin augustus tract infection 885283622 N39.0 needs prior to vacation, no medical available where she is goinghas hx of UTIs Gastroesop hageal reflux disease 225670477 K21.9 needs refills Hypercholesterolemia 136 50475 E78.2 will get bw from lab and fu with results Essential hypertension 90098980 I10 BP excellent Hypothyroidism 25981581 E03.9 will fu with lab work and fu to fax to her endocrinol ogist Health Concerns Section Related Observation LastModified by Organization Detai ls LastModified Time None Recorded Concern Status LastModified by Organization Details LastModified Time None Recorded Advance Directives Directive None Recorded Payers Insurance Date Sequence Insurance Name Policy Number Policy Chapman Covered Member ID Chapman Member ID Guarantor Name 01/12/2024 1 GONZALO [id number] Verena Camacho [id number] Stas Camacho 01/13/2025 1 [place] [employer] Verena Maxin [id number] Stas Diazhemlandon 01/19/2025 2 [place] [id number] Verena Diazhemin [id number] Stas Camacho Notes Date Note Type Note Provider Name a nd Address Organization Details Recorded Time 3 text/html ROS as noted in the [...] otherwise doing wellno head injury EDILBERTO CLEMENS [address] [place] [address], [place], [address], [facility] 08/09/2022 10:22:17 4 text/html Sore ThroatReported by PatientHPIFor quality, patient reportspainful,hoarse ness, anddullbut reportsno difficulty swallowingandno laryngitis. For associated symptoms, patient reportsthroat hoarsenessbut reportsno swollen glands,no dysphagia,no nausea,no vomiting,no appetite loss,no headache,no itching throat,no choking,no globus sensation,no lethargy,no rash,no abdominal pain, andno conjunctivitis. For location, patient reportsbilateral. For onset/timing, patient reportsdate of onset 09/26/23andgradual. For severity, patient reportsimproving. For context, patient reportsno recent travel,no tick/insect bites,no new medications, andno one else with similar symptoms. For alleviating factors, patient reportsnsaidsandrest. ROS as noted in the HPI EDILBERTO CLEMENS [address] [place], [address], [facility] 10/02/2023 10:51:36 4 text/html ROS [...] the area as well EDILBERTO CLEMENS [address] [place], [address], [facility] 10/16/2023 14:40:43 4 text/html Annual [...] sleep if it helps EDILBERTO CLEMENS [address] [place], [address], [facility] 01/15/2024 12:12:49 5 text/html Medicare Annual Wellness VisitReported by PatientSocial/Behavio ral HistoryFor diet and nutrition, [...] noted in the HPI EDILBERTO CLEMENS [address] [place], [address], [facility] 01/16/2025 13:59:38 OBGyn Episode No OBEpisode recorded.
--- OUTSIDE RECORDS SUMMARY | 2025-01-27 07:12 | XMS_ITS | Clinical Summary ---
Author Organization [facility] Address [address] [place] [address] Phone Care Team Providers Care Radiology Practitioner Assistant Name Role Phone Erik Lizama DO Primary Care Provider [phone] Allergies Active Allergy Reactions Criticality Noted Date [...] file Insurance MEDICARE PART A & B [employer] MEDEX SUPPLEMENT MEDICARE PART A & B [employer] SUPPLEMENT MEDICARE PART A & B [employer] MEDEX SUPPLEMENT MEDICARE PART A & B [employer] MEDEX SUPPLEMENT MEDICARE PART A & B [employer] MEDEX SUPPLEMENT MEDICARE PART A & B Member Subscriber Plan / Payer (Ef fective 2018-Present) Name:Verena Camacho Member ID:[id number] Relation to Subscriber:Self Name:Verena Camacho Subscriber ID:[id number] Payer ID:[id number] Group ID:Not on file Type:Medicare Address: [facility] Adaptive Planning [facility] [employer] [facility] [address] [place] [address] [employer] MEDEX SUPPLEMENT Care Teams Radiology Practitioner Assistant Relationship Specialty Start Date End Date Erik Lizama DO [email or web address] PCP - General Internal Medicine 09/03/23 Additional Source Comments The information contained in this document represents components of the legal health record. It is not the complete legal health record.[facility]
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
--- OUTSIDE RECORDS SUMMARY | 2025-01-27 07:12 | XMS_ITS | Patient Health Record ---
Author Organization [facility] Address [address] [place] [address] Care Team Providers Care Director Export Name Role Phone Erik Lizama Primary Care Provider Kenneth Noyola Jr Unavailable Allergies Allergen (clinical drug ingredient) Drug/Non Drug Allergy documented on EMR Reaction Allergy Type Onset Date Status sulfamethoxazole / trimethoprim Bactrim Unknown Drug Allergy Active Reason For Referral No Information Medications Medication SIG (Take, Route, Frequency, Duration) Notes Start Date End Date Status Simvastatin 20 MG Tablet 1 tablet in the evening Orally Once a day Active Probiotic Tablet Delayed Release Orally Active Lisinopril-hydroCHLOROth iazide 20-25 MG Tablet 1 tablet Orally Once a day Active Levothyroxine Sodium 88 MCG Tablet 1 tablet Orally Once a day Active MiraLax (colon prep) 8.3 ounce (238) grams mixed with Gatorade or Crystal Light orally begin at 5:00 p.m. the day before the procedure; Duration: 1 day 06/11/2019 Not-Taking/PRN Meloxicam 15 MG Tablet 1 tablet Orally O nce a day Active Omeprazole 20 MG Capsule Delayed Release 1 capsule 30 minutes before morning meal Orally Once a day Active Cranberry 405 MG Capsule as directed Orally Active Calcium + D3 600-200 MG-UNIT Tablet Orally Active Immunizations Vaccine Route Administration Date Status Comme nts Influenza Unknown 10/15/2018 Administered Influenza Unknown 10/29/2024 Administered Influenza Unknown 10/29/2024 Administered Social History Tobacco Use: Social History Observation Description Date Details (start date - stop date) Former Smoker NA - NA Social History Drugs/Alcohol: Social Info Question Answer Notes Alcohol Screen Did you have a drink containing alcohol in the past year? Yes How often did you have a drink containing alcohol in the past year? 2 to 3 times a week (3 points) How many drinks did you have on a typical day when you were drinking in the past year? 1 or 2 drinks (0 point) How often did you have 6 or more drinks on one occasion in the past year? Never (0 point) Points 3 Interpretation Positive Tobacco Use: Social Info Question Answer Notes Tobacco Use/Smoking Patient is a former smoker When did you stop smoking? 20 Additional Details Category Social Info Options Details Miscellaneous: Marital status: Occupation: retired [employer] Problems Problem Type SNOMED Code ICD Code Onset Dates Problem Status W/U Status Risk Notes Problem Colon cancer screening (807937828) Colon cancer screening (Z12.11) Active confirmed Problem Diarrhea (98856039) Diarrhea (R19.7) Active con firmed Problem History of polyp of colon (situation) (097899475) Personal history of colonic polyps (Z86.010) Active confirmed Problem Gastroesophageal reflux disease without esophagitis (646821452) Gastroesophageal reflux disease without esophagitis (K21.9) Active confirmed Vital Signs Temperature 97.9 degrees Fahrenheit 01/12/2025 Blood pressure diastolic 01 mm Hg 01/12/2025 Height 66 in 01/12/2025 Blood pressure systolic 001 mm Hg 01/12/2025 Weight 200.2 lbs 01/12/2025 BMI 32.31 kg/m2 01/12/2025 Encounters Encounter Location Date Provider Diagnosis [facility] [address] [place] [phone] 01/12/2025 Kenneth Kinney Jr Gastroesophageal reflux disease without esophagitis K21.9 ; Diarrhea R19.7 and Colon cancer screening Z12.11 [facility] [address] [place] [phone] 01/12/2025 Kenneth Kinney Jr Assessments Encounter Date Diagnosis (ICD Code) Assessment Notes Treatment Notes Treatment Clinical Notes Section Notes 01/12/2025 Diarrhea (ICD-10 - R19.7) At this time, renard badillo appears to be doing well. We discussed treatment of her diarrhea with antidiarrheals on a as needed basis. At the time of her colonoscopy, she can undergo biopsies to assess for any evidence of collagenous colitis. We recommended further evaluation with colonoscopy for colon cancer screening and her previous history of colon polyps. We discussed risks and benefits of the procedure today. She understands these and agrees to proceed. Her reflux symptoms are stable on omeprazole and she will continue this. Follow-up will be in 12 months. She will call if she has problems. We discussed diet, lifestyle modifications, and weight management regarding the treatment of reflux. 01/12/2025 Gastroesophageal reflux disease without esophagitis (ICD-10 - K21.9) At this time, didi chand appears to be doing well. We discussed treatment of her diarrhea with antidiarrheals on a as needed basis. At the time of her colonoscopy, she can undergo biopsies to assess for any evidence of collagenous colitis. We recommended further evaluation with colonoscopy for colon cancer screening and her previous history of colon polyps. We discussed risks and benefits of the procedure today. She understands these and agrees to proceed. Her reflux symptoms are stable on omeprazole and she will continue this. Follow-up will be in 12 months. She will call if she has problems. We discussed diet, lifestyle modifications, and weight management regarding the treatment of reflux. 01/12/2025 Colon cancer screening (ICD-10 - Z12.11) At this time, renard badillo appears to be doing well. We discussed treatment of her diarrhea with antidiarrheals on a as needed basis. At the time of her colonoscopy, she can undergo biopsies to assess for any evidence of collagenous colitis. We recommended further evaluation with colonoscopy for colon cancer screening and her previous history of colon polyps. We discussed risks and benefits of the procedure today. She understands these and agrees to proceed. Her reflux symptoms are stable on omeprazole and she will continue this. Follow-up will be in 12 months. She will call if she has problems. We discussed diet, lifestyle modifications, and weight management regarding the treatment of reflux. Plan Of Treatment Future Test Test Name Order Date UPPER GI ENDOSCOPY 10/15/2014 COLONOSCOPY 10/15/2014 COLONOSCOPY 06/11/2019 COLONOSCOPY 01/12/2025 Next Appt Details Provider Name:Kenneth robles Jr, 01/27/2025 08:50:00 AM, [facility] , [place], [place], [id number], Insurance Providers Payer Name Payer Address Payer Phone Subscriber Number Group Number Insured Name Patient Relationship to Insured Coverage Start Date Coverage End Date MEDICARE OF [place] [address] [place] [address] [id number] SUSIE MCKENZIE Self - patient is the insured 9 MEDEX ATTN CLAIMS [address] [place] [address] [id number] SUSIE MCKENZIE Self - patient is the insured Medical (General) History Medical History History ICD Code Colonoscopy 2019, tubular adenoma, 5-yea r follow-up Hyperlipidemia Hypertension Surgical History Surgery Date(Month/Year) Lobular carcinoma in situ, s tatus post lumpectomy & Tamoxifen treatment for five years 2001 laparoscopic left knee surgery 2015
[2025-01-27 07:20] LABS: MANUAL DIFF FLAG NO
[2025-01-27 07:53] LABS: Hematocrit 41.9 % (37.0-47.0); Hemoglobin 14.1 g/dl (12.0-16.0); Imm Gran Abs Auto 0.02 X10*3/uL (0.00-0.03); Imm Gran Pct Auto 0.2 % (0.0-0.4); Lymphocytes Absolute Auto 2.7 X10*3/uL (1.2-4.9); Mean Corpuscular HGB Conc 33.7 g/dl (31.0-35.0); Mean Corpuscular Hemoglobin 29.7 pg (27.0-33.0); Mean Corpuscular Volume 88.2 fL (80.0-98.0); NRBC Abs Auto 0.000 X10*3/uL (0.0-0.012); NRBC Pct Auto 0.0 /100WBC (0.0-0.2); Platelet Count 349 X10*3/uL (160-400); Red Blood Count 4.75 X10*6/uL (4.20-5.50); White Blood Count 9.2 X10*3/uL (4.8-10.8)
[2025-01-27 08:16] LABS: Alanine Aminotransferase 20 U/L (0-31); Albumin Level 4.5 g/dL (3.5-5.0); Alkaline Phosphatase 111 U/L (39-117); Anion Gap 13 (12-20); Aspartate Amino Transferase 25 U/L (5-31); Blood Urea Nitrogen 12 mg/dL (9-16); Calcium 9.8 mg/dL (8.4-10.2); Carbon Dioxide 26 mmol/L (22-29); Chloride 105 mmol/L (96-108); Cholesterol 166 mg/dL (<200); Estimated Glomerular Filt Rate > 60; HDL Cholesterol 57 mg/dL (>40); Potassium 3.9 mmol/L (3.3-5.1); Sodium 140 mmol/L (135-145); Total Protein 7.7 g/dL (6.5-8.0); Triglycerides 83 mg/dL (<150)
[2025-01-27 08:35] LABS: Free T4 (Free Thyroxine) 1.65 ng/dL (0.71-1.85); Thyroid Stimulating Hormone 4.37 uIU/mL (0.32-4.0)
== END 2025-01-27 07:10 | disposition home or self-care (01) ==
LOC: HO.LAB 07:09
PROVIDERS: PCP Internal Medicine; Visit Provider Physician Assistant
DX: E78.2 Mixed hyperlipidemia (principal); E03.9 Hypothyroidism, unspecified
CPT/HCPCS: 36415; 80053; 80061; 84439; 84443; 85025

== ENCOUNTER 2025-01-27 07:20 | Day surgery (SDC) | payer MEDICARE, SELFPAY ==
--- OUTSIDE RECORDS SUMMARY | 2025-01-12 17:57 | XMS_ITS | Data Portability ---
Author Organization [facility] Interactive, [employer], [facility] Address [address] [place] [address] Care Team Providers Care Console Attendant Name Role Phone JEFFRY KAUFFMAN Referring Provider Assessment No assessment recorded. Plan of Treatment Reminders Order Date Submit Date Provider Last Modified By Organization Details Last Modified Time Details Appointments None record ed. Lab cultur e, urine 2020 021 [facility], [address] [place], [address], 06:28:18 urinal ysis, dipsti ck, auto 2020 021 [email or web address] In-Office Order, Internal Use Only DO Not Attach Compendium DO Not Attach Compendium, Do Not Delete/merge, [id number] 13:09:59 cultur e, urine 2020 021 [facility], [address], [place], [address], 11:35:28 urinal ysis, dipsti ck, auto 2020 021 [email or web address] In-Office Order, Internal Use Only DO Not Attach Compendium DO Not Attach Compendium, Do Not Delete/merge, [id number] 14:23:47 urinal ysis, dipsti ck, auto 2020 021 [email or web address] In-Office Order, Internal Use Only DO Not Attach Compendium DO Not Attach Compendium, Do Not Delete/merge, [id number] 18:28:03 cultur e, urine [address] [facility], [address], [place], [address], 06:23:08 Referral None record ed. Procedures None record ed. Surgeries None record ed. Imaging None record ed. Medication Orders Zithro max Z-Shamar 250 mg tablet 2023 024 [facility]/Pharmacy #[id number], [address] [place], [address], 4 11:00:46 Cipro 500 mg tablet 2020 021 [email or web address] [facility]/Pharmacy #[id number], [address] [place], [address], 3 11:32:16 nitrof uranto in monohy drate/ macroc rystal s 100 mg capsul e 2020 021 [facility] #[id number], [address] [place], [address], 1 12:43:16 Macrob id 100 mg capsul e 2020 021 [facility] #[id number], [address] [place], [address], 1 12:43:16 Patient TargetsNo targets recorded. Patient Instructions Encounter Date Encounter Id Patient Instructions Last Modified By Organization Details Last Modified Time 04/18/2020 [id number] pt asked to cont.pushing fluids,will call in 72 hrs with urine culture results [email or web address] Not available 04/18/2020 18:30:41 07/06/2020 [id number] Discussed UTI an d differentials. Sent Rx, written instructions given, pt understands to return to clinic/PCP if not better or if worse (to ER if severe sx such as inability to urinate, severe ABD/pelvic pain, intractable N/V, bleeding). Pt verbalized understanding and agrees with plan. [email or web address] Not available 07/06/2020 12:48:21 05/13/2022 [id number] upper respirator y infection (cold): care instructions Not available 05/13/2022 11:45:46 viral respirator y infection: care instructions Not available 05/13/2022 11:45:46 04/20/2023 [id number] Acute Sinusitis: Care Instructions [email or web address] Not available 04/20/2023 11:00:41 Patient understands instructions and will seek medical attention if symptoms worsen as directed. [email or web address] Not available 04/20/2023 11:00:27 Reason for Referral None Reported. Results Created Date Observation Date Name Description Value Unit Range Abnormal Flag Note LastModifiedBy Organization Detail LastModifiedTime 07/07/1907/06/2020 urina lysis , dipst ick, auto leukocytes large negati ve Not Available In-Office Order Internal Use Only DO Not Attach Compendium DO Not Attach Compendium, Do Not Delete/merge, [id number] 07/06/2020 12:37:23 07/07/1907/06/2020 urina lysis , dipst ick, auto nitrite neg negati ve Not Available In-Office Order Internal Use Only DO Not Attach Compendium DO Not Attach Compendium, Do Not Delete/merge, [id number] 07/06/2020 12:37:23 07/07/19 21 07/06/2020 urina lysis , dipst ick, auto urobilinogen 0.2 0.2 Not Available In-Of fice Order Internal Use Only DO Not Attach Compendium DO Not Attach Compendium, Do Not Delete/merge, [id number] 07/06/2020 12:37:23 07/07/19 21 07/06/2020 urina lysis , dipst ick, auto protein neg negati ve Not Available In-Office Order Internal Use Only DO Not Attach Compendium DO Not Attach Compendium, Do Not Delete/merge, [facility] 07/06/2020 12:37:23 07/07/19 21 07/06/2020 urina lysis , dipst ick, auto pH 6.0 5.0-7. 0 Not Available In-Office Order Internal Use Only DO Not Attach Compendium DO Not Attach Compendium, Do Not Delete/merge, [facility] 07/06/2020 12:37:23 07/07/19 21 07/06/2020 urina lysis , dipst ick, auto blood mod negati ve Not Available In-Office Order Internal Use Only DO Not Attach Compendium DO Not Attach Compendium, Do Not Delete/merge, [facility] 07/06/2020 12:37:23 07/07/1907/06/2020 urina lysis , dipst ick, auto specific gravity 1.015 1.020- 1.035 Not Available In-Office Order Internal Use Only DO Not Attach Compendium DO Not Attach Compendium, Do Not Delete/merge, [facility] 07/06/2020 12:37:23 07/07/19 21 07/06/2020 urina lysis , dipst ick, auto ketone neg negati ve Not Available In-Office Order Internal Use Only DO Not Attach Compendium DO Not Attach Compendium, Do Not Delete/merge, [facility] 07/06/2020 12:37:23 07/07/19 21 07/06/2020 urina lysis , dipst ick, auto bilirubin neg negati ve Not Available In-Office Order Internal Use Only DO Not Attach Compendium DO Not Attach Compendium, Do Not Delete/merge, [facility] 07/06/2020 12:37:23 07/07/19 21 07/06/2020 urina lysis , dipst ick, auto glucose neg negati ve Not Available In-Office Order Internal Use Only DO Not Attach Compendium DO Not Attach Compendium, Do Not Delete/merge, [facility] 07/06/2020 12:37:23 06/20/19 21 06/19/2020 urina lysis , dipst ick, auto leukocytes smalll negati ve Not Available In-Office Order Internal Use Only DO Not Attach Compendium DO Not Attach Compendium, Do Not Delete/merge, [facility] 06/19/2020 14:06:22 06/20/1906/19/2020 urina lysis , dipst ick, auto nitrite neg negati ve Not Available In-Office Order Internal Use Only DO Not Attach Compendium DO Not Attach Compendium, Do Not Delete/merge, [facility] 06/19/2020 14:06:22 06/20/19 21 06/19/2020 urina lysis , dipst ick, auto urobilinogen 0.2 0.2 Not Available In-Of fice Order Internal Use Only DO Not Attach Compendium DO Not Attach Compendium, Do Not Delete/merge, [facility] 06/19/2020 14:06:22 06/20/19 21 06/19/2020 urina lysis , dipst ick, auto protein neg negati ve Not Available In-Office Order Internal Use Only DO Not Attach Compendium DO Not Attach Compendium, Do Not Delete/merge, [facility] 06/19/2020 14:06:22 06/20/19 21 06/19/2020 urina lysis , dipst ick, auto pH 7.0 5.0-7. 0 Not Available In-Office Order Internal Use Only DO Not Attach Compendium DO Not Attach Compendium, Do Not Delete/merge, [facility] 06/19/2020 14:06:22 06/20/1906/19/2020 urina lysis , dipst ick, auto blood modera te negati ve Not Available In-Office Order Internal Use Only DO Not Attach Compendium DO Not Attach Compendium, Do Not Delete/merge, [facility] 06/19/2020 14:06:22 06/20/19 21 06/19/2020 urina lysis , dipst ick, auto specific gravity 1.020 1.020- 1.035 Not Available In-Office Order Internal Use Only DO Not Attach Compendium DO Not Attach Compendium, Do Not Delete/merge, [facility] 06/19/2020 14:06:22 06/20/19 21 06/19/2020 urina lysis , dipst ick, auto ketone neg negati ve Not Available In-Office Order Internal Use Only DO Not Attach Compendium DO Not Attach Compendium, Do Not Delete/merge, [facility] 06/19/2020 14:06:22 06/20/19 21 06/19/2020 urina lysis , dipst ick, auto bilirubin neg negati ve Not Available In-Office Order Internal Use Only DO Not Attach Compendium DO Not Attach Compendium, Do Not Delete/merge, [facility] 06/19/2020 14:06:22 06/20/19 21 06/19/2020 urina lysis , dipst ick, auto glucose neg negati ve Not Available In-Office Order Internal Use Only DO Not Attach Compendium DO Not Attach Compendium, Do Not Delete/merge, [facility] 06/19/2020 14:06:22 04/19/19 21 04/18/2020 urina lysis , dipst ick, auto leukocytes negati ve negati ve Not Available In-Office Order Internal Use Only DO Not Attach Compendium DO Not Attach Compendium, Do Not Delete/merge, [facility] 04/18/2020 17:57:35 04/19/19 21 04/18/2020 urina lysis , dipst ick, auto nitrite negati ve negati ve Not Available In-Office Order Internal Use Only DO Not Attach Compendium DO Not Attach Compendium, Do Not Delete/merge, [facility] 04/18/2020 17:57:35 04/19/19 21 04/18/2020 urina lysis , dipst ick, auto urobilinogen 0.2 0.2 Not Available In-Of fice Order Internal Use Only DO Not Attach Compendium DO Not Attach Compendium, Do Not Delete/merge, [facility] 04/18/2020 17:57:35 04/19/19 21 04/18/2020 urina lysis , dipst ick, auto protein negati ve negati ve Not Available In-Office Order Internal Use Only DO Not Attach Compendium DO Not Attach Compendium, Do Not Delete/merge, [facility] 04/18/2020 17:57:35 04/19/19 21 04/18/2020 urina lysis , dipst ick, auto pH 6.5 5.0-7. 0 Not Available In-Office Order Internal Use Only DO Not Attach Compendium DO Not Attach Compendium, Do Not Delete/merge, [facility] 04/18/2020 17:57:35 04/19/19 21 04/18/2020 urina lysis , dipst ick, auto blood modera te negati ve Not Available In-Office Order Internal Use Only DO Not Attach Compendium DO Not Attach Compendium, Do Not Delete/merge, [facility] 04/18/2020 17:57:35 04/19/19 21 04/18/2020 urina lysis , dipst ick, auto specific gravity 1.010 1.020- 1.035 Not Available In-Office Order Internal Use Only DO Not Attach Compendium DO Not Attach Compendium, Do Not Delete/merge, [facility] 04/18/2020 17:57:35 04/19/19 21 04/18/2020 urina lysis , dipst ick, auto ketone negati ve negati ve Not Available In-Office Order Internal Use Only DO Not Attach Compendium DO Not Attach Compendium, Do Not Delete/merge, [facility] 04/18/2020 17:57:35 04/19/19 21 04/18/2020 urina lysis , dipst ick, auto bilirubin negati ve negati ve Not Available In-Office Order Internal Use Only DO Not Attach Compendium DO Not Attach Compendium, Do Not Delete/merge, [facility] 04/18/2020 17:57:35 04/19/19 21 04/18/2020 urina lysis , dipst ick, auto glucose negati ve negati ve Not Available In-Office Order Internal Use Only DO Not Attach Compendium DO Not Attach Compendium, Do Not Delete/merge, [facility] 04/18/2020 17:57:35 06/20/19 21 06/23/2020 cultu re, urine culture, urine, routine SEE NOTE abnormal CULTU RE, URINE , ROUTI NE Micro Numbe r: [id number] Test Statu s: Final Speci men Sourc e: URINE Speci men Quali ty: Adequ ate Resul t: Great er than 100,0 00 CFU/m L of Esche marcia a coli E.col i ----- ----- ----- - INT DAVID AMOX/ CLAVU LANAT E S <=2 AMPIC ILLIN S 4 AMP/S ULBAC BUSTAMANTE S <=2 CEFAZ DUANE NR <=4 2 CEFEP PRANEETH S <=1 CEFTR IAXON E S <=1 CIPRO FLOXA ROQUE S <=0.2 5 GENTA MICIN S <=1 IMIPE NEM S <=0.2 5 LEVOF LOXAC IN S <=0.1 2 NITRO FURAN TOIN S <=16 PIP/T AZOBA CTAM S <=4 TOBRA MYCIN S <=1 TRIME THOPR IM/CAMARGO LFA S <=20 S=Myrna cepti ble I=Int ermed iate R=Res istan t * = Not Teste d NR = Not Repor bishop NN = See Thera py Comme nts THERA PY COMME NTS Note 1: For infec tions other than uncom plica bishop UTI cause d by E. coli, K. pneum oniae or P. mirab ilis: Cefaz duane is resis tant if DAVID > or = 8 mcg/m L. (Dist ingui shing susce ptibl e versu s inter media te for isola ernie with DAVID < or = 4 mcg/m L requi res addit ional testi ng.) Note 2: For uncom plica bishop UTI cause d by E. coli, K. pneum oniae or P. mirab ilis: Cefaz duane is susce ptibl e if DAVID <32 mcg/m L and predi cts susce ptibl e to the oral agent s cefac xavi, cefdi adama, cefpo doxim e, cefpr ozil, cefur oxime , cepha lexin and lorac arbef . Not Available [facility] [address], [place], [address], 06/23/2020 11:35:28 Result Notes None recorded. Problems Name Problem SNOMED Code Status Onset Date Resolution Date Notes Provider Name and Address Organization Details Recorded Time Common cold 13161904 Active 023 Marina Gaines SOFTWARE QUALITY ENGINEER [address] [facility] [address], [place], [address] , [facility], [facility] 3 11:45:43 Acute sinusitis 37619247 Active 024 PEPPER VERDUZCO APRN [address], [place], [address] , [facility], [facility] 4 11:00:05 Problem Notes None recorded. Procedures Surgical History Date Name Laterality Status Provider Name and Address Organization Details Recorded Time 0 Date of Last Mammogram completed Donna Hung [facility], [facility] 07/06/2020 12:39:41 8 Walk-In Basic Visit completed MAX Winchester [address], [place], [address], [facility], [facility] 02/23/2017 09:41:43 7 Walk-In Basic Visit completed MILTON Coppola [address], [place], [address], [facility], [facility] 03/04/2016 09:56:25 Knee surgery completed Ronda Glass [facility] 03/04/2016 09:44:06 Imaging Results None recorded. Procedure Notes None recorded. Medical Equipment None Reported. Allergies Allergen ID Allergen Name Allergen Category Reaction Reaction Severity Criticality Documentation Date Start Date Code Code System Note Provider Name and Address Organization Details Recorded Time [id number] Bactrim medicatio n Not available Not available Not available 03/04/2016 54600 9 RxNorm Ronda Glass [facility], [facility] 7 09:42:26 Medications Name Sig Start Date Stop Date Status Note LastModified by Organization Details LastModified Time Levoxyl 88 mcg tablet Take 1 tablet every day by oral route. active Not Available Not Available No t Available prednisone 10 mg tablet two po bid for 3 days, one po tid for 3 days, one po bid for 3 days, one po qd for 3 days 04/18 completed Not Available Not Available Not Available meloxicam 15 mg tablet Take 1 tablet every day by oral route. 04/19 completed Not Available Not Available Not Available Medrol (Shamar) 4 mg tablets in a dose pack Take 1 dose pk by oral route. 04/18 completed Not Available Not Available Not Available Zithromax Z-Shamar 250 mg tablet TAKE 2 TABLETS (500 MG) BY ORAL ROUTE ONCE DAILY FOR 1 DAY THEN 1 TABLET (250 MG) BY ORAL ROUTE ONCE DAILY FOR 5 days 2023 active Not Available Not Available Not Avai lable penicillin V potassium 500 mg tablet 03/06 completed Not Available Not Available Not Available aspirin 81 mg tablet,spenser yed release Take 1 tablet every day by oral route. 04/19 completed Not Available Not Available Not Available triamcinolo ne acetonide 0.1 % topical cream 03/06 completed Not Available Not Available Not Available levothyroxi ne 100 mcg tablet 03/06 completed Not Available Not Available Not Available oxycodone-a cetaminophe n 5 mg-325 mg tablet TAKE 1 OR 2 TABLETS EVERY 8 HOURS NEEDED FOR PAIN 03/04 completed Not Available Not Available Not Available simvastatin 20 mg tablet Take 1 tablet every day by oral route. active Not Available Not Available No t Available Cipro 500 mg tablet Take 1 tablet every 12 hours by oral route for 7 days. 05/13 completed Not Available Not Available Not Available clotrimazol e-betametha sone 1 %-0.05 % topical cream APPLY A SMALL AMOUNT TO AFFECTED AREA TWICE A DAY 03/06 completed Not Available Not Available Not Available prednisone 50 mg tablet Take 1 tablet every day by oral route for 3 days. 04/18 completed Not Available Not Available Not Available lisinopril 20 mg-hydrochl orothiazide 25 mg tablet Take 1 tablet every day by oral route. active Not Available Not Available No t Available metoprolol succinate ER 25 mg tablet,exte nded release 24 hr Take 1 tablet every day by oral route. active Not Available Not Available No t Available doxepin 5 % topical cream 03/06 completed Not Available Not Available Not Available naproxen 500 mg tablet 03/04 completed Not Available Not Available Not Available amoxicillin 875 mg-potassiu m clavulanate 125 mg tablet Take 1 tablet every 12 hours by oral route for 7 days. 04/18 completed Not Available Not Available Not Available Calcium 500 + D 500 mg-5 mcg (200 unit) tablet Take by oral route. active Not Available Not Available No t Available nitrofurant oin monohydrate /macrocryst als 100 mg capsule Take 1 capsule every 12 hours by oral route for 10 days. 07/06 completed Not Available Not Available Not Available magnesium active Not Available Not Aislinn ilable Not Available omeprazole active Not Available Not Av ailable Not Available simvastatin 03/06 completed Not Available Not Available Not Available lisinopril 03/06 completed Not Available Not Available Not Available Synthroid 03/06 completed Not Available Not Available Not Available Probiotic active Not Available Not Aislinn ilable Not Available Fluarix Quad 7743-8903 (PF) 60 mcg (15 mcg x 4)/0.5 mL IM syringe TO BE ADMINISTE RED BY PHARMACIS T FOR IMMUNIZAT ION 03/06 completed Not Available Not Available Not Available Vitals Date Recorded Body height Body mass index (BMI) Body weight Respiratory rate Heart rate Body temperature Oxygen saturation Systolic And Diastolic Provider Name and Address Organization Details Last Updated DateTime 1 167.64 cm 32 kg/m2 05857.2 9 g 16 /min 95 /min 98.9 [degF] 96 % 118/68 mm[Hg] Moira Humphries [facility], [facility] 1 18:13:10 Date Recorded Body height Respiratory rate Body mass index (BMI) Body weight Body temperature Heart rate Oxygen saturation Systolic And Diastolic Provider Name and Address Organization Details Last Updated DateTime 4 167.64 cm 16 /min 33.2 kg/m2 19496.0 3 g 99 [degF] 88 /min 94 % 114/76 mm[Hg] Jane Tamayo [facility], [facility] 4 10:35:32 Date Recorded Body height Respiratory rate Body mass index (BMI) Body weight Body temperature Heart rate Oxygen saturation Systolic And Diastolic Provider Name and Address Organization Details Last Updated DateTime 1 167.64 cm 22 /min 32 kg/m2 11946.2 9 g 97 [degF] 82 /min 98 % 168/97 mm[Hg] Zachariah Miller [facility], [facility] 14:17:15 Date Recorded Body height Body mass index (BMI) Body weight Body temperature Oxygen saturation Heart rate Respiratory rate Systolic And Diastolic Provider Name and Address Organization Details Last Updated DateTime 167.64 cm 33.2 kg/m2 40963 g 98.96 [degF] 97 % 99 /min 16 /min 170/83 mm[Hg] Jordanjulia Hung [facility] 12:42:44 Social History Question Answer Notes LastModified by Organizat ion Details LastModified Time Tobacco Smoking Status Former Smoker [facility] 04/18/2020 18:09:27 In The 14 Days Before Symptom Onset, Have You Had Close Contact With A Laboratory-confirm ed COVID-19 While That Case Was Ill? No [email or web address] Information n ot available 07/06/2020 In The 14 Days Before Symptom Onset, Have You Had Close Contact With A Person Who Is Under Investigation For COVID-19 While That Person Was Ill? No [email or web address] Information not available 07/06/2020 Have You Been To An Area Known To Be High Risk For COVID-19? No [email or web address] Information not available 07/06/2020 Alcohol Use 1-2 Per Day shafeli Information not available 03/04/2016 Year Quit Tobacco Use 1982 Information not available 04/18/2020 Marital Status Informatio n not available 04/18/2020 What Was The Date Of Your Most Recent Tobacco Screening? 06/19/2020 [email or web address] Information not available 07/06/2020 Sex: Unknown Functional Status None recorded. Mental Status None recorded. Family History Relationship Description Onset Age of this Age Resolved Age Notes LastModified by Organization Details LastModified Time Mother Alive shafeli Not available 09:44:20 Medical History Condition Response High blood pressure Y Thyroid Disease Y High Cholesterol Y Gynecological History Statement/Question Response Date of Last Mammogram 01/24/2020 Obstetrics History GPAL:G 0 P 0 0 0 0 Immunizations Vaccine Type Date Status Note Provider Nam e and Address Organization Details Recorded Time Influenza, split virus, quadrivalent, preservative 7 completed Not Available [facility] 05/13/2022 09:27:55 COVID-19, mRNA, LNP-S, PF, 100 mcg/0.5mL dose or 50 mcg/0.25mL dose 1 completed Zachariah cavanaugh [facility] 06/19/2020 14:05:53 COVID-19, mRNA, LNP-S, PF, 100 mcg/0.5mL dose or 50 mcg/0.25mL dose 1 completed Zachariah cavanaugh [facility] 06/19/2020 14:05:53 Past Encounters Encounter ID Performer Location Encounter Start Date Encounter Closed Date Diagnosis/Indication Diagnosis SNOMED-CT Code Diagnosis ICD10 Code Diagnosis IMO Codes Diagnosis Note [id number] MILTON Coppola [facility] [address] [place] [address] 03/04/2016 08:54:49 03/04/2016 10:04:58 Acute sinusitis 30753298 J01.90 [id number] [place] [address] [place] [address] 02/23/2017 09:04:29 02/23/2017 10:02:05 Cystitis 25370073 N30.01 Dysuria 72958219 R30.0 [id number] Jud wilson MD [facility] [address] [place] [phone] 03/06/2019 07:53:45 03/06/2019 08:31:41 Acute sinusitis 41979464 J01.90 counseling [id number] MAX Mehta [facility] [place] [address] 04/19/2019 12:41:29 04/19/2019 13:47:50 Acute pharyngitis 534712338 J02.9 I have explained the exam findings and the plan with the pt.She verbalized her understand ing and agreement with the planpositi ve strep A result reviewed with the pt. advised to take prednisone with food. discussed potential side effects of steroid. [id number] Jud wilson MD [facility] [address] [place] [address] 04/18/2020 17:34:36 04/18/2020 18:32:49 Acute urinary tract infection 331332991 N39.0 counseling [id number] Farrukh Dasilva DO [facility] [address] [place] [address] 06/19/2020 14:00:39 06/19/2020 15:17:53 Acute urinary tract infection 995007246 N39.0 Patient's work-up evaluation including urinalysis demonstrat es a urinary tract infection. Patient was started on Macrobid and will follow up with her primary care provider as needed. She expressed understand ing and agreement with this course of action. [id number] JOSE DAVID ALDANA APRN [facility] [address] [place] [address] 07/06/2020 12:28:20 07/06/2020 13:41:47 Acute recurrent cystitis 471611173 N30.00 Patient will follow up with her urologist [place] if she continues to have the recurrent UTIs as she had about 5 years ago. MDM: Reviewed old records, Reviewed lab tests, Reviewed radiograph ic tests. Risk of complicati ons/comorb idities: low/Mod. Medication s and/or treatments today should not present a contraindi cation. Dysuria 85110998 R30.9 Urgent jeremias chula to urinate 43542336 R39.15 Long-term drug therapy 426801262 Z79.899 Multiple comorbidit ies, todays treatment/ tests-no apparent contraindi cations Microscopic hematuria 19 5214178 R31.29 Patient has had this in the past, she has been to urology 5 years ago for frequent UTIs and her cystoscopy was totally normal. [id number] MAX Wolf [facility] [address] [facility] [address] [facility] [place] [address] 05/13/2022 11:14:42 05/15/2022 11:27:47 Common cold 17616101 J00 new onset; will have pt try Zyrtec and Flonase if needed; Ibuprofen ok for short term. Take rapid covid test, if negative then consider PCR if sxs worsen; she can get done at [facility] or [facility]. Reminded that common cold can last 7-10 days and the body takes care of the symptoms but if worsening after that, then may be going into a sinus infection that may then need antibiotic s. Pt needs to establish with PCP, given names of local providers at [place]. [id number] [facility] [address] [place] [phone] 04/20/2023 08:54:36 04/20/2023 11:02:48 Acute sinusitis [id number] J01.90 drink plenty of fluidszyrt ec 10mg dailyflona se as directedan tibiotic as directedfo llow up if any worsening symptoms including shortness of breath, fever Health Concerns Section Related Observation LastModified by Organization Detai ls LastModified Time None Recorded Concern Status LastModified by Organization Details LastModified Time None Recorded Advance Directives Directive None Recorded Payers Insurance Date Sequence Insurance Name Policy Number Policy Chapman Covered Member ID Chapman Member ID Guarantor Name 02/23/2017 1 *SELF PAY* Milton veliz Beauchemin 03/06/2019 1 [employer] [id number] Verena Beauchemin [id number] Verena Beauchemin 04/20/2023 2 [place] ([facility] [id number] Verena L Beauchemin [id number] Verena Beauchemin 04/20/2023 1 [place] Verena L Beauchemin [id number] Verena Beauchemin Notes Date Note Type Note Provider Name and Address Organization Details Recorded Time 04/18/2020 text/html ROS as noted in the HPI CORONAVIRUS SCREENING TOOL Are you experiencing any NEW symptom(s) listed below that is not due to another health problem None of the below Is anyone else in your household experiencing any NEW symptoms No In the past 2 weeks did you have close contact (within 6 feet for at least 15 minutes) with someone with symptoms of COVID-19 or who tested positive for COVID-19 No In the past 2 weeks have you been tested for COVID-19 No, I have not been tested Why did you get tested? Please select all that apply N/A In the past 2 weeks has someone in your household tested positive for COVID-19 No Have you ever received a dose of COVID-19 vaccine? Yes Which vaccine product did you receive? Moderna How many doses have you received? 1 dose Imported from [employer] on 04/18/2020 QUALITY MEASURE QUESTIONNAIRE Are you a diabetic patient No Has the Patient previously received any type of colorectal cancer screener Yes Please confirm which of the following colorectal screeners the Patient has received in the past Colonoscopy Please enter the date you received your last Colonoscopy 09/07/2019 Please enter the result you received for your last Colonoscopy Benign Polyp Imported from [employer] on 04/18/2020 urinary problems started 2 days ago-frequency,pressure in bladder,urgency,no burning sensation,no fever or chills,,no flank pain,no abdominal pain,Bm normal,no diarrhea,no nausea or vomiting,no Hx of kidney stones or kidney disease,pushed cranberry juice and fluids,no Hx of reccurent UTI,no smoking Jud Sorensen MD [address] [address], [place], [address], [facility] - [facility], [facility] 04/18/2020 18:31:10 06/19/2020 text/html ROS as noted in the HPI Patient presents to the clinic for evaluation of 3 days worth of increased urinary frequency, burning and hesitation. Patient has a prior history of urinary tract infections and states that these symptoms are exactly what she feels when she started to get urinary tract infections. The patient denies flank pain or fevers. CORONAVIRUS SCREENING TOOL Are you experiencing any NEW symptom(s) listed below that is not due to another health problem None of the below Is anyone else in your household experiencing any NEW symptoms No In the past 2 weeks did you have close contact (within 6 feet for at least 15 minutes) with someone with symptoms of COVID-19 or who tested positive for COVID-19 No In the past 2 weeks have you been tested for COVID-19 No, I have not been tested Why did you get tested? Please select all that apply N/A In the past 2 weeks has someone in your household tested positive for COVID-19 No Have you ever received a dose of COVID-19 vaccine? Yes Which vaccine product did you receive? Moderna How many doses have you received? 2 doses Imported from [employer] on 06/19/2020 QUALITY MEASURE QUESTIONNAIRE Mammogram Results Negative Imported from [employer] on 06/19/2020 Farrukh Dasilva DO [address], [place], [address], [facility], [facility] 06/19/2020 14:29:46 07/06/2020 text/html complaintRepo rted by PatientHPIFor reason for visit, patient reportsacute complaint. For quality, patient reportsdysuriaandfrequ ency(odor in urine). For severity, patient reportsmoderate __but reportsunchanged. For onset/timing, patient reportsgradualand3 days ago. For alleviating factors, patient reportsnothing. For duration, patient reportsintermittent. For aggravating factors, patient reportsnothing. For associated symptoms, patient reportsno fever,no hematuria,no flank pain,no abdominal pain, andno rash. CORONAVIRUS SCREENING TOOL Are you experiencing any NEW symptom(s) listed below that is not due to another health problem None of the below Is anyone else in your household experiencing any NEW symptoms No In the past 2 weeks did you have close contact (within 6 feet for at least 15 minutes) with someone with symptoms of COVID-19 or who tested positive for COVID-19 No In the past 2 weeks have you been tested for COVID-19 No, I have not been tested Why did you get tested? Please select all that apply N/A In the past 2 weeks has someone in your household tested positive for COVID-19 No Have you ever received a dose of COVID-19 vaccine? Yes Which vaccine product did you receive? Moderna How many doses have you received? 2 doses Imported from [employer] on 07/06/2020 JOSE DAVID ALDANA APRN [address], [place], [address], [facility], [employer] 07/06/2020 13:11:12 05/13/2022 text/html SinusitisReporte d by PatientHPIFor reason for visit, patient reportsacute complaint. For location, patient reportssinus pain. For quality, patient reportsachingandconges bishop. For context, patient reportsrecent upper respiratory infection. For duration, patient reportsintermittent. For onset/timing, patient reportsabrupt. For associated symptoms, patient reportsno fever. This visit was conducted via our telehealth video visit service.Symptoms started 2 days ago with runny nose, and sneezing. Also has some sinus pressure in her cheek and forehead. No cough or fever or sore throat.Taking Ibuprofen 200mg, 2 tabs helps a little. Provider location: at homePatient location: at home address on fileVisit Participants in addition to provider and patient: nonePatient has given verbal consent to telehealth visit. MAX Wolf [address], [place], [address], [facility], [employer] 05/13/2022 11:46:12 04/20/2023 text/html SinusitisReporte d by PatientHPIFor reason for visit, patient reportsacute complaint. For location, patient reportsfrontal pain. For quality, patient reportsaching. For alleviating factors, patient reportsnothing gives relief. For associated symptoms, patient reportsnasal discharge,cough,sore throat, andpostnasal drip. For severity, patient reportsunchanged. For duration, patient reportsconstant. For onset/timing, patient reportsabruptand3 days. For context, patient reportsno recent upper respiratory infectionandno recent sick contacts. For aggravating factors, patient reportsnothing makes it worse.ROS as noted in the HPI Express Covid Questions Are you feeling sick today? Includes any NEW symptom(s) among those listed previously that are NOT due to another health problem Yes Have you tested positive for COVID-19 in the past 10 days? No In the last 10 days, have you been exposed to someone who has tested positive for COVID-19? No Imported from [employer] on 03/25/2022 QUALITY MEASURE QUESTIONNAIRE Are you a diabetic patient No Please enter the approximate date of your last Pap Smear 01/01/2022 PAP Results Negative Did you have a partial hysterectomy or total hysterectomy Have not had a Hysterectomy Imported from [employer] on 03/25/2022 PEPPER VERDUZCO, ZACHARY [address], [place], [address], [facility] - [facility], [facility] 04/20/2023 11:00:44 OBGyn Episode No OBEpisode recorded.
--- OUTSIDE RECORDS SUMMARY | 2025-01-12 17:57 | XMS_ITS | Clinical Summary ---
Author Organization [facility] Address [address] [place] [id number] Phone Care Team Providers Care Deputy General Counsel Name Role Phone Erik Lizama DO Primary Care Provider [phone] Allergies Active Allergy Reactions Criticality Noted Date Comments Sulfamethoxazole-Trimethoprim Hives 2023 Medications simvastatin (ZOCOR) 20 MG tablet 07/14/2023 Active omeprazole (PRILOSEC) 20 MG capsule 08/29/2023 Active metoprolol succinate (TOPROL-XL) 25 MG 24 hr tablet 08/04/2023 Active lisinopril-hydroCH LOROthiazide (PRINZIDE,ZESTORET IC) 20-25 mg per tablet 07/14/2023 Active SYNTHROID 88 mcg tablet 06/15/2023 Active Active Problems No known active problems Social History Tobacco Use Types Packs/Day Years Used Date Smoking Tobacco: Former Cigarettes Smokeless Tobacco: Never Tobacco Cessation:Counseling Given: Not Answered Education Answer Date Recorded Are you interested in more education? Not on cassandra e 09/03/2023 Are you concerned about learning? Not on file 09/03/2023 No 09/03/2023 No 09/03/2023 Digital Access Answer Date Recorded No 09/03/2023 No 09/03/2023 Reliable internet access at home? Not on file 09/03/2023 Device with a working camera? Not on file Comments Unknown Sex and Gender Information Value Date Recorded Sex Assigned at Not on file Legal Sex Female 8:06 AM EDT Gender Identity Not on file Sexual Orientation Not on file Last Filed Vital Signs Vital Sign Reading Time Taken Comments Blood Pressure 151/92 09/03/2023 8:47 AM EDT Pulse 84 09/03/2023 9:15 AM EDT Temperature 37.1 C (98.8 F) 09/03/2023 8:47 AM EDT Respiratory Rate 16 09/03/2023 8:47 AM EDT Oxygen Saturation 98% 09/03/2023 8:47 AM EDT Inhaled Oxygen Concentration - - Weight - - Height - - Body Mass Index - - Plan of Treatment Health Maintenance Due Date Last Done Comments Adult Td,Tdap Booster 1953 CREATININE LEVEL 1953 LIPID PANEL 1953 POTASSIUM LEVEL 1953 TSH LEVEL 1953 DEPRESSION SCREENING 1965 SMOKING Hx and SMOKELESS TOB ACCO SCREENING 1966 HEPATITIS C SCREENING 08/17/1971 MAMMOGRAM 1993 COLOGUARD 1998 COLONOSCOPY 1998 COLORECTAL CANCER SCREENING 1998 FIT TEST 1998 FOBT 1998 SIGMOIDOSCOPY 1998 VIRTUAL COLONOSCOPY 1998 PNEUMOCOCCAL VACCINES (50+ y ears) (1 of 1 - PCV) 08/17/2003 ZOSTER VACCINES (1 of 2) 08/17/2003 OSTEOPOROSIS SCREENING INITI AL (ONE-TIME) 2018 INFLUENZA VACCINE (#1) 2024 COVID-19 VACCINE (1 - 2024-2 6 season) 2024 RSV VACCINE (1 - 1-dose 75+ series) 2028 HEPATITIS A VACCINES Aged Out No long er eligible based on patient's age to complete this topic HIB VACCINES Aged Out No longer eligi ble based on patient's age to complete this topic MENINGOCOCCAL VACCINES (ACWY) Aged Out No longer eligible based on patient's age to complete this topic MENINGOCOCCAL VACCINES (B) Aged Out N o longer eligible based on patient's age to complete this topic Medical Devices Not on file Insurance MEDICARE PART A & B [employer] MEDEX SUPPLEMENT MEDICARE PART A & B Buy buy teaEX SUPPLEMENT MEDICARE PART A & B [employer] MEDEX SUPPLEMENT MEDICARE PART A & B [employer] MEDEX SUPPLEMENT MEDICARE PART A & B [place] [employer] MEDEX SUPPLEMENT MEDICARE PART A & B BLUE [employer]OSS MEDEX SUPPLEMENT Care Teams Deputy General Counsel Relationship Specialty Start Date End Date Erik Lizama DO [email or web address] PCP - General Internal Medicine 09/03/23 Additional Source Comments The information contained in this document represents components of the legal health record. It is not the complete legal health record.[facility]
--- OUTSIDE RECORDS SUMMARY | 2025-01-12 17:57 | XMS_ITS | Data Portability ---
Author Organization [facility], Telehealth Patient Home Address [address] [place] [address] Assessment Encounter Date Assessment Date Assessment LastModified by Organization Details LastModified Time 08/09/2022 08/09/2022 The patient denies recent falls or recurrent falls. Denies instability, weakness, abnormal gait, or difficulties with movement. The patient wears correct, supportive shoes and is not otherwise severely visually impaired. The patient is full weight bearing and if using the assistance of a cane or walker feels supported and stable with the use of such devices. All medical conditions have been taken into account that may pose a risk for the patient for falls. Home ted, carpets and/or rugs do not pose a challenge for the patient. The patient has been educated about the use of vitamin D supplementation for bone health and prevention of hypotensive episodes that may increase risk for fall. All question and concerns were answered to the patient's satisfaction. [email or web address] Not available 08/09/2022 10:12:43 Plan of Treatment Reminders Order Date Submit Date Provider Last Modified By Organization Details Last Modified Time Details Appointments ANNUAL EXAM 2024 01:30P EDILBERTO HILTON Not available Not available Not available Lab lyme disease igg+igm, serum, reflex western blot 2023 024 [facility] [address], [address], 10/16/2023 14:15:57 anaplasma phagocyto philum + ehrlichia chaffeens is DNA panel, blood 2023 024 [facility] [address], [place], [address], 10/19/2023 15:51:43 culture, throat 2023 024 [facility], [address] [place] [address], [id number], 10/03/2023 11:33:05 rapid strep group A, throat 2023 024 [facility], [address] [facility] [address] [facility], [address], [place], [address], 10/02/2023 10:48:13 streptoco ccus group A, culture, throat 2023 024 [facility], [address] [place] [address], [id number], 10/09/2023 09:59:25 lipid panel, blood 2022 023 [facility], [address] [place] [address], [id number], 09/15/2022 11:18:25 CMP, serum or plasma 2022 023 [facility], [address] [place] [address], [id number], 09/15/2022 11:18:24 CBC w/ auto diff 2022 023 [facility], [address] [place] [address], [id number], 09/15/2022 11:18:25 TSH + free T4, serum 2022 023 [facility], [address] [place] [address], [id number], 09/15/2022 11:18:25 HbA1c (hemoglob in A1c), blood 2022 023 [facility], [address] [place] [address], [address], 09/15/2022 11:18:25 CBC w/ auto diff 2021 [facility], [address] [place] [address], [id number], 01/27/2022 13:45:19 lipid panel, blood 2021 [facility], [address] [place] [address], [address], 01/27/2022 13:45:20 TSH + free T4, serum 2021 [facility], [address] [place] [address], [address], 01/27/2022 13:45:20 CMP, serum or plasma 2021 [facility], [address] [place] [address], [id number], 01/27/2022 13:45:19 Referral orthopedi c surgeon referral - dislocate d R shoulder, needs eval and PT 2023 [facility], [address], [place], [address], 01/15/2024 16:11:05 Procedures None recorded. Surgeries None recorded. Imaging None recorded. Medication Orders clotrimaz ole-betam ethasone 1 %-0.05 % topical cream 2023 024 [id number], [address] [place], [address], 10/16/2023 14:11:09 doxycycli ne hyclate 100 mg tablet 2023 024 manjit [id number], [address] [place], [address], 01/15/2024 11:45:10 ciproflox acin 500 mg tablet 2023 024 [email or web address] [id number], [address] [facility], [place], [address], 01/15/2024 11:44:41 clotrimaz ole-betam ethasone 1 %-0.05 % topical cream 2021 022 [facility], [facility], [place], [address], 01/27/2022 13:41:35 Patient TargetsNo targets recorded. Patient InstructionsNo instructions recorded. Reason for Referral Orthopedic Surgeon Referral for Pain of right shoulder joint dislocated R shoulder, needs eval and PT dislocated R shoulder, needs eval and PT Referring Physician: Paola Fan, Internal Medicine, Encounter Date: 01/15/2024 Results Created Date Observation Date Name Description Value Unit Range Abnormal Flag Note LastModifiedBy Organization Detail LastModifiedTime 10/02/19 24 10/02/2023 rapid strep group A, throa t Strep negati ve Not Available [facility] [address] [facility] [address] [facility] [address], [place], [address], 10/02/2023 10:20:33 01/05/20 24 01/04/2024 XR, shoul norma No observ ation record ed. [facility] (Medical Records) [address] [place], [address], 01/06/2024 12:56:45 01/05/20 24 01/04/2024 XR, shoul norma No observ ation record ed. [facility] (Medical Records) [address] [place], [address], 01/06/2024 12:56:56 Result Notes None recorded. Problems Name Problem SNOMED Code Status Onset Date Resolution Date Notes Provider Name and Address Organization Details Recorded Time Hypothyr oidism 65650514 Active 2017 Dr. Brenner Not Available [facility] 2 10:30:15 [facility] hyperten nury 19183474 Active 2017 Not Available [facility] 2 10:30:15 Personal history of primary malignan t neoplasm of breast 738111105 Active 2017 LCIS - s/p tamoxifen x 5 years Not Available [facility] 2 10:30:15 Hypercho lesterol emia 42510690 Active 2017 Not Available [facility] 2 10:30:15 Gastroes ophageal reflux disease 653099101 Active 2017 Not Available [facility] 2 10:30:15 Osteoart hritis of knee 494944810 Active 2017 left Not Available [facility] 2 10:30:15 Tinea corporis 29054103 Active 2021 EDILBERTO CLEMENS [address] [place], [address], [facility] 2 13:44:24 Streptoc occal infectio us disease 30759420 Active 2023 EDILBERTO CLEMENS [address] [place], [address], [facility] 4 10:47:18 Acute urinary tract infectio n 786178651 Active 2023 EDILBERTO CLEMENS [address] [place], [address], [facility] 4 10:47:23 Sore throat 873483223 Active 2023 EDILBERTO CLEMENS [address] [place], [address], [facility] 4 10:49:11 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 Procedures Surgical History Date Name Laterality Status Provider Name and Address Organization Details Recorded Time 07/14/19 20 Date of Last Pap Smear completed Mylene Thomas [facility] 07/18/2019 08:41:45 01/13/20 17 Most Recent Mammogram completed Jyotsna Mack NP, S [address] [place] [address], [address], [facility] 11/28/2017 09:10:08 10/14/19 16 Arthroscopic Surgery completed Jyotsna Mack NP, S [address] [place] [address], [address], [facility] 06/01/2017 08:57:31 lumpectomy of left breast completed May Chris HUYNELSON [address] [place] [address], [address], [facility] 11/20/2018 09:52:33 Imaging Results None recorded. Procedure Notes None recorded. Medical Equipment None Reported. Allergies Allergen ID Allergen Name Allergen Category Reaction Reaction Severity Criticality Documentation Date Start Date Code Code System Note Provider Name and Address Organization Details Recorded Time 1626 amoxicill in medicatio n Not available Not available Not available 07/30/2017 723 [facility] 8 11:51:00 970 Substance with sulfonami de structure and antibacte rial mechanism of action (substanc e) medicatio n Not available Not available Not available 05/30/2017 [address] 8003 SNOMED Jyotsna Mack NP, S [address] [place] [address], [address], [facility] 8 10:01:34 Medications Name Sig Start Date Stop Date Status Note LastModified by Organization Details LastModified Time celecoxib 200 mg capsule 08/09 completed Not Available Not Available Not Available prednison e 10 mg tablet 07/10 completed Not Available Not Available Not Available azithromy izzy 250 mg tablet TAKE 2 TABLETS BY MOUTH TODAY, THEN TAKE 1 TABLET DAILY FOR 4 DAYS DIRECTED 10/15 completed Not Available Not Available Not Available meloxicam 15 mg tablet TAKE 1 TABLET BY MOUTH EVERY DAY NEEDED active Not Available Not Available No t Available alclometa sone 0.05 % topical cream active Not Available Not Available Not Available clobetaso l 0.05 % topical cream PLEASE SEE ATTACHED FOR DETAILED DIRECTIO NS active Not Available Not Available No t Available penicilli n V potassium 500 mg tablet 06/01 completed Not Available Not Available Not Available ciproflox acin 500 mg tablet TAKE 1 TABLET BY MOUTH EVERY DAY FOR 14 DAYS 01/14 completed Not Available Not Available Not Available tramadol 50 mg tablet 1 TABLET NEEDED ORALLY TWICE DAILY *AMOUNT PER INSURANC E* active Not Available Not Available No t Available triamcino lone acetonide 0.1 % topical cream Apply 1 applicat ion every day by topical route as needed for 30 days. 11/28 completed Not Available Not Available Not Available levothyro xine 100 mcg tablet 06/01 completed Not Available Not Available Not Available imiquimod 5 % topical cream packet APPLY TO SPOT ON MID BACK LESION EVERY MON-WED- FRI FOR 12-16 WEEKS active Not Available Not Available No t Available cephalexi n 500 mg capsule Take 1 capsule 3 times a day by oral route. 07/13 completed Not Available Not Available Not Available simvastat in 20 mg tablet TAKE 1 TABLET DAILY active Not Available Not Available No t Available erythromy izzy 5 mg/gram (0.5 %) eye ointment 11/28 completed Not Available Not Available Not Available clotrimaz ole-betam ethasone 1 %-0.05 % topical cream APPLY SMALL AMOUNT TO AFFECTED AREA TWICE A DAY NEEDED 45GM/30 DAYS PER INS)15 active Not Available Not Available No t Available prednison e 50 mg tablet 07/10 completed Not Available Not Available Not Available Synthroid 88 mcg tablet TAKE 1 TABLET BY MOUTH DAILY active Not Available Not Available No t Available Synthroid 75 mcg tablet 08/09 completed Not Available Not Available Not Available omeprazol e 20 mg capsule,d elayed release TAKE 1 CAPSULE DAILY 2024 active Not Available Not Available Not Avai lable lisinopri l 20 mg-hydroc hlorothia zide 25 mg tablet TAKE 1 TABLET DAILY active Not Available Not Available No t Available metoprolo l succinate ER 25 mg tablet,ex tended release 24 hr TAKE 1 TABLET TWICE A DAY active Not Available Not Available No t Available estradiol 0.01% (0.1 mg/gram) vaginal cream INSERT 1 GRAM VAGINALL Y NIGHTLY X 1 WEEK THEN TWICE A WEEK active Not Available Not Available No t Available methylpre dnisolone 4 mg tablets in a dose pack 07/10 completed Not Available Not Available Not Available betametha sone dipropion ate 0.05 % lotion APPLY TO SCALP ONCE - TWICE NEEDED FOR ITCH active Not Available Not Available No t Available doxepin 5 % topical cream 06/01 completed Not Available Not Available Not Available doxycycli ne hyclate 100 mg tablet TAKE 1 TABLET BY MOUTH TWICE A DAY 01/14 completed Not Available Not Available Not Available amoxicill in 875 mg-potass ium clavulana te 125 mg tablet 07/10 completed Not Available Not Available Not Available Pneumovax -23 25 mcg/0.5 mL injection syringe ADM 0.5ML IM UTD 08/02 completed Not Available Not Available Not Available nitrofura ntoin monohydra te/macroc rystals 100 mg capsule TAKE 1 CAPSULE BY MOUTH TWICE A DAY FOR 5 DAYS 01/14 completed Not Available Not Available Not Available omeprazol e 20 mg tablet,de layed release 1 po qd 2023 active Not Available Not Available Not Avai lable Zyrtec 10 mg capsule Take 1 capsule every day by oral route as needed. active takes it througou t the year Not Available Not Available Not Available ID NOW COVID-19 Test Kit USE 1 KIT TODAY DIRECTED 01/27 completed Not Available Not Available Not Available Vitals Date Recorded Body height Body mass index (BMI) Body weight Heart rate Oxygen saturation Systolic And Diastolic Provider Name and Address Organization Details Last Updated DateTime 3 165.1 cm 34.4 kg/m2 10321.6 2 g 81 /min 98 % 144/78 mm[Hg] Constanza Joy [facility] 3 10:01:49 Date Recorded Body weight Heart rate Oxygen saturation Systolic And Diastolic Provider Name and Address Organization Details Last Updated DateTime 10/02/2023 81866.52 g 73 /min 98 % 132/78 mm[Hg] Laurel Frank [facility] 10/02/2023 10:22:19 Date Recorded Heart rate Oxygen saturation Systolic And Diastolic Provider Name and Address Organization Details Last Updated DateTime 10/16/2023 71 /min 97 % 122/68 mm[Hg] Laurel Frank [facility] 10/16/2023 13:55:38 Date Recorded Body height Body mass index (BMI) Body weight Heart rate Oxygen saturation Systolic And Diastolic Provider Name and Address Organization Details Last Updated DateTime 4 165.1 cm 31.6 kg/m2 92833.5 5 g 90 /min 98 % 120/76 mm[Hg] Constanza Joy [facility] 4 11:47:28 Date Recorded Body height Body mass index (BMI) Body weight Heart rate Oxygen saturation Systolic And Diastolic Provider Name and Address Organization Details Last Updated DateTime 2 165.1 cm 32.5 kg/m2 68006.9 5 g 81 /min 98 % 138/64 mm[Hg] Mandy Izaiahyoseph [facility] 2 13:34:20 Social History Question Answer Notes LastModified by Organizat ion Details LastModified Time Tobacco Smoking Status Former Smoker Not Available [facility] 12/16/2019 03:36:24 What Was The Date Of Your Most Recent Tobacco Screening? 01/15/2024 Information not available 01/15/2024 How Much Tobacco Do You Smoke? 1 PPW [id number] Information not available 12/16/2019 How Many Years Have You Smoked Tobacco? 10 [id number] Information not available 12/16/2019 Sex: Unknown Functional Status Question Answer Note LastModified by Organizat ion Details LastModified Time Do you or have you ever used smokeless tobacco? Never used smokeless tobacco [email or web address] Information not available 08/09/2022 Do you or have you ever used e-cigarettes or vape? Never used electronic cigarettes [email or web address] Information not available 08/09/2022 Mental Status None recorded. Family History Relationship Description Onset Age of this Age Resolved Age Notes LastModified by Organization Details LastModified Time Father Myocardial infarction 68 88 [email or web address] Not available 11/28 09:26:49 Father Atrial fibrillation [email or web address] Not available 04/2023 11:34:32 Father Cerebrovascu lar accident [email or web address] Not available 09:50:55 Mother Atrial fibrillation [email or web address] Not available 04/2023 11:34:32 Brother Myocardial infarction 60 [email or web address] Not available 10/2018 09:38:15 Maternal Uncle Diabetes mellitus [email or web address] Not available 11/20 09:51:28 Maternal Uncle Malignant neoplasm of colon [email or web address] Not available 2023 11:34:32 Medical History Condition Response Coronary Artery Disease N Gout N Hyperthyroidism N Breast Cancer Y Thyroid Problems Y Lung Disease N Depression N GI Problems N Defects or Inherited Disease N Anemia N Difficulty Swallowing N Anesthesia Complications N Anxiety Disorder N Meniere's disease N Diabetes N Ovarian Cancer N Obesity Y Vision or Eye Problems N Arthritis Y Seizures/Epilepsy N Mental Disorder N Tuberculosis N Congestive Heart Failure (CHF) N Stroke N Diverticulitis N Abuse/Domestic Violence N Bladder or Kidney Problems Y Reflux/GERD Y High Cholesterol Y Hepatitis N Liver Disease N Heart Disease N Fibromyalgia N Hypertension Y Osteoporosis N Chicken Pox Y Autism Spectrum Disorder (ASD) N Kidney Disease N Gynecological History Statement/Question Response Abnormal Pap N If Post Menopausal, Age at Menopause 50 Sexually Active? Y Date of Last Pap Smear 07/14/2019 Sexual Problems? Y Current Control Method Menopause Most Recent Mammogram 01/12/2017 Age at Menarche 10 Age at First Child 27 Obstetrics History GPAL:G 2 P 2 0 0 2 Type Value Full Term 2 Living 2 Total 2 Immunizations Vaccine Type Date Status Note Provider Nam e and Address Organization Details Recorded Time COVID-19, mRNA, LNP-S, PF, 100 mcg/0.5mL dose or 50 mcg/0.25mL dose 1 completed [facility] 08/09/2022 09:55:44 zoster live 8 completed Lizett cavanaugh [facility] 11/26/2019 08:57:48 COVID-19, mRNA, LNP-S, PF, 100 mcg/0.5mL dose or 50 mcg/0.25mL dose 2 completed Ada Gencarelle afshan, [facility] 08/09/2022 09:55:44 Influenza, split virus, quadrivalent, preservative 7 completed Ada Gencarelle null, [facility] 08/09/2022 09:55:44 Pneumococcal conjugate PCV 13 9 completed Ada Gencarelle [facility], [facility] 08/09/2022 09:55:44 Influenza, split virus, quadrivalent, preservative 9 completed Ada Gencarelle [facility], [facility] 08/09/2022 09:55:44 zoster live 8 completed Lizett cavanaugh [facility] 11/26/2019 08:57:48 Tdap 6 completed Lizett White [facility], [facility] 11/26/2019 08:57:48 Influenza, split virus, quadrivalent, preservative 0 completed Ada Gencarelle [facility] 08/09/2022 09:55:44 COVID-19, mRNA, LNP-S, PF, 100 mcg/0.5mL dose or 50 mcg/0.25mL dose 1 completed Ada Gencarelle [facility] 08/09/2022 09:55:44 COVID-19, mRNA, LNP-S, PF, 100 mcg/0.5mL dose or 50 mcg/0.25mL dose 1 completed Ada Gencarelle [facility] 08/09/2022 09:55:44 Past Encounters Encounter ID Performer Location Encounter Start Date Encounter Closed Date Diagnosis/Indication Diagnosis SNOMED-CT Code Diagnosis ICD10 Code Diagnosis IMO Codes Diagnosis Note [id number] Erik Lizama [facility] [address] [facility], [place] [address] 06/01/2017 10:05:20 06/01/2017 11:30:58 Essential hypertension 23678069 I10 stable Tinea corporis 67447845 B35.4 Hypothyroidism 74644079 E03.9 stable up to date Dr. Brenner Personal h istory of primary malignant neoplasm of breast 095768654 Z85.3 up to date at [facility] Urinary tr act infectious disease 33841720 N39.0 [id number] Erik Lizama [facility] [address] [facility], [place] [address] 07/13/2017 10:09:52 07/13/2017 11:04:32 Gastroesophageal reflux disease 196689875 K21.9 Tachycardia 4261346 R00. 0 f/u in office 2 weeks, may start beta blockade [id number] Erik Lizama [facility] [address] [facility],[place] [address] 07/30/2017 11:43:24 07/30/2017 13:28:49 Acute cystitis 13852535 N30.00 call if no better Gastroesop hageal reflux disease 732698936 K21.9 [id number] [facility] [address],[place] [address] 11/28/2017 08:49:57 11/28/2017 14:09:34 Adult health examination 822054707 Z00.00 Active or passive immunization 871921943 Z23 had flu and shingrix at [facility] Tinea corporis 20359229 B35.4 Gastroesop hageal reflux disease 439758359 K21.9 controlled with omeprazole Hypercholesterolemia 136 98181 E78.00 Reviewed labs Personal h istory of primary malignant neoplasm of breast 982555149 Z85.3 up to date at [facility] Essential hypertension 08077131 I10 stable Hypothyroidism 79471070 E03.9 stable up to date Dr. Brenner, [facility] labs [id number] [facility] [address] [facility], itjustino Viver[facility] [place] [address] 05/29/2018 08:56:48 05/29/2018 09:36:40 Gastroesophageal reflux disease 773798165 K21.9 controlled with omeprazole Tinea corporis 27145881 B35.4 Hypercholesterolemia 136 25818 E78.00 Essential hypertension 52183847 I10 stable Hypothyroidism 00003494 E03.9 stable up to date Dr. Brenner, [facility] labs Acute cystitis 55265167 N30.00 call if no better Family his tory of coronary arteriosclerosis 898666881 Z82.49 [id number] Erik Lizama [facility] [address],[place] [facility] [place] [address] 11/20/2018 09:07:45 11/20/2018 10:41:46 Gastroesophageal reflux disease 571685326 K21.9 Hypercholesterolemia 136 76869 E78.00 Essential hypertension 97211444 I10 Adult heal th examination 826084857 Z00.00 Screening mammography 24 993827 Z12.31 Decreased estrogen level 328640464 E28.39 Vitamin D deficiency 347 21673 E55.9 Body mass index 30+ - obesity 429758602 Z68.30 Restless l egs syndrome 42542612 G25.81 Family his tory of ischemic heart disease 401815172 Z82.49 was recommende d to have cardiac calcium scoring [id number] Erik Lizama [facility] [address] [facility], [place] [facility] [place] [address] 07/11/2019 09:34:17 07/11/2019 10:26:09 Hypothyroidism 03235127 E03.9 gets blood work getting done with endocrinol ogist Hypercholesterolemia 136 05003 E78.00 will get bw Essential hypertension 56177815 I10 excellent control on current medication [id number] Erik Lizama [facility] [address] [facility],[place] [address] 11/26/2019 08:54:45 11/26/2019 10:10:42 Gastroesophageal reflux disease 497560638 K21.9 needs refills Essential hypertension 63351624 I10 excellent control on current medication BP is 116/80 Hypercholesterolemia 136 58597 E78.00 will get bw from lab, had it done but not showing up in system for some reason Adult heal th examination 970945441 Z00.00 patient had blood had blood work at [facility] [id number] Erik Lizama [facility] [address] [facility], [employer] [place] [address] 08/02/2020 09:53:46 08/02/2020 11:02:14 Essential hypertension 02208769 I10 excellent control on current medication BP is 118/60 Hypercholesterolemia 136 74298 E78.00 will get bw from lab and fu with results Hypothyroidism 28281577 E03.9 will fu with lab work and fu to fax to her endocrinol ogist Urinary tr act infectious disease 57504396 N39.0 gets UTI during vacation, will be going on vacation soon [id number] Erik Lizama [facility] [address] [facility] [facility], [place] [address] 01/27/2022 13:24:03 01/27/2022 16:09:38 Active or passive immunization 469333248 Z23 patient advised he is due for flu shot & pneu 23 Adult heal th examination 208055702 Z00.00 stable vitals Advance care planning 71 4150093 Z71.89 advised Tinea corporis 57050063 B35.4 refillsent [id number] Erik Lizama [facility] [address] [facility], [place] [address] 08/09/2022 09:55:31 08/09/2022 10:22:05 Essential hypertension 29780143 I10 Hypercholesterolemia 136 61657 E78.2 will get bw from lab and fu with results Hypothyroidism 58470931 E03.8 will fu with lab work and fu to fax to her endocrinol ogist Family his tory of diabetes mellitus 040410756 Z83.3 Fall W19.XXXD [id number] Erik Lizama [facility] [address] [facility] [facility], [place] [address] 10/02/2023 10:12:37 10/02/2023 11:18:59 Sore throat 093504685 J02.9 will send out throat swab Depression screening [id number] Z13.31 SCREENING NEGATIVE Streptococ jeff infectious disease [id number] B95.3 neg [place] out culture Acute urin augustus tract infection [id number] N39.0 needs prior to vacation, no medical available where she is goinghas hx of UTIs [id number] Erik Lizama [facility] [address] [facility] [facility], [place] [address] 10/16/2023 13:49:32 10/16/2023 15:05:41 Tinea corporis [id number] B35.4 refillsent in for patient Bull's eye maculopathy [id number] H35.30 will set up from lab-work [id number] Erik Lizama [facility] Internal Medicine [address] [facility] [address] [place],[address] [employer] [place] [address] 01/15/2024 11:34:23 01/15/2024 14:52:17 Pain of right shoulder joint [id number] M25.511 needs ortho eval and PT Adult heal th examination [id number] Z00.00 BP is stable Insomnia [id number] F51.0 1 suggested APAP PM to try Health Concerns Section Related Observation LastModified by Organization Detai ls LastModified Time None Recorded Concern Status LastModified by Organization Details LastModified Time None Recorded Advance Directives Directive None Recorded Payers Insurance Date Sequence Insurance Name Policy Number Policy Chapman Covered Member ID Chapman Member ID Guarantor Name 01/12/2024 1 [employer] [id number] Verena Camacho [id number] Stas Camacho 01/13/2024 1 [place] Verena Camacho [id number] Stas Camacho 01/13/2024 2 [place] [id number] Verena Camacho [id number] Stas Camacho Notes Date Note Type Note Provider Name a nd Address Organization Details Recorded Time 2 text/html Annual WellnessReported by PatientSocial/Behavio ral HistoryFor diet and nutrition, patient reportshealthy diet,discussed vitamin and supplement use,discussed portion control,discussed maintaining calcium balance, anddiscussed diet improvement. For fracture risk, patient reportsno history of fractures,no recent explained fracture,no sudden unexplained fractures, andno previous musculoskeletal injuries. For physical activity, patient reportsexercises on a regular basis,recent increase in physical activity, andgood physical condition. For additional lifestyle factors, patient reportsno tobacco useanddrinks alcohol (mild-moderate).Menta l Status:For depression risk, patient reportsnever feels sad, empty, or tearful,no loss of interest in activities,no significant changes in weight,no sleep disturbances or insomnia,no agitation,no loss of energy,no feelings of worthlessness or guilt,no thoughts of suicide,no history of depression, andno history of mood disorders.Functional AbilityFor hearing, patient reportsno loss of hearing. For vision, patient reportsno vision problems. BP is stable monitoring thyroid in [place] with yearly US EDILBERTO CLEMENS [address] [place], [address], [facility] Internal Medicine 01/27/2022 13:55:04 3 text/html ROS as noted in the HPI f/urecent falldiscussed ortho visit the patient is here today after fall toward on the steps of a churchthe patient reports that she broke wrist and ankle: nondisplaced 5th metatarsal shaft fx R foot and triquetral avulsion fx right wrist needs new lab workwas unable to get it due to her recent fall, fx and hospital visit otherwise doing wellno head injury EDILBERTO CLEMENS [address] [place], [address], [facility] 08/09/2022 10:22:17 4 text/html Sore ThroatReported by PatientHPIFor quality, patient reportspainful,hoarse ness, anddullbut reportsno difficulty swallowingandno laryngitis. For associated symptoms, patient reportsthroat hoarsenessbut reportsno swollen glands,no dysphagia,no nausea,no vomiting,no appetite loss,no headache,no itching throat,no choking,no globus sensation,no lethargy,no rash,no abdominal pain, andno conjunctivitis. For location, patient reportsbilateral. For onset/timing, patient reportsdate of onset 8/14/24andgradual. For severity, patient reportsimproving. For context, patient reportsno recent travel,no tick/insect bites,no new medications, andno one else with similar symptoms. For alleviating factors, patient reportsnsaidsandrest. ROS as noted in the HPI EDILBERTO CLEMENS [address] [place], [address], [facility] 10/02/2023 10:51:36 4 text/html ROS as noted in the HPI c/o rash bull's eye rash on the left breastcould also be tinea but very consistent with a bull's eye, has been having on and off sore throat, fatigue and muscle painstart on doxy, will also run tick borne illness panel per pt requestcan also use her topical cream on the area as well EDILBERTO CLEMENS [address] [place], [address], [facility] 10/16/2023 14:40:43 4 text/html Annual WellnessReported by PatientSocial/Behavio ral HistoryFor diet and nutrition, patient reportshealthy diet. For fracture risk, patient reportsno history of fractures,no recent explained fracture,no sudden unexplained fractures, andno previous musculoskeletal injuries. For physical activity, patient reportsexercises on a regular basis,recent increase in physical activity, andgood physical condition. For additional lifestyle factors, patient reportsno tobacco use,no alcohol intake, andstopped drinking alcohol.Mental Status:For depression risk, patient reportsnever feels sad, empty, or tearful,no loss of interest in activities,no significant changes in weight,no sleep disturbances or insomnia,no agitation,no loss of energy,no feelings of worthlessness or guilt,no thoughts of suicide,no history of depression, andno history of mood disorders.Functional AbilityFor hearing, patient reportsno loss of hearing. For vision, patient reportsno vision problems.ROS as noted in the HPI the patient reports she tripped and fell and dislocated her R shoulder will have APAP PM for the sleep if it helps EDILBERTO CLEMENS [address] [place], [address], [facility] 01/15/2024 12:12:49 OBGyn Episode No OBEpisode recorded.
--- NOTE | 2025-01-23 10:23 | HO.ANESPROP2 ---
Documented by User: Tammy Lorenzana NP 01/23/25 10:24 HPI - Anesthesia Eval Consult details Narrative: 69yo F for Colonoscopy [place] [facility] htn, palps. Both well controled at 01/2024 office visit [facility] Active Problems Active Problems: All Active Problems Vitamin D deficiency (Acute) Obesity (Acute) Abnormal thyroid biopsy (Acute) Palpitations (Acute) Dyslipidemia (Acute) Hypertension (Acute) Obesity (BMI 30-39.9) (Acute) Thyroid nodule (Acute) Hypothyroidism (Acute) Past Medical History Medical History Breast cancer Vitamin D deficiency Abnormal thyroid biopsy Dyslipidemia Hypertension Obesity (BMI 30-39.9) Thyroid nodule Hypothyroidism Family History Family History Father Heart disease Mother Hypertension Thyroid disease Afib Maternal Aunt Diabetes mellitus Surgical History Surgical History H/O colonoscopy Hx of breast biopsy Hx of arthroscopy of left knee Social History Social History Household Members: Spouse Alcohol intake: current Alcohol intake frequency: a few times a week Alcohol type: wine and hard liquor Patient Tobacco Use Status: Former Tobacco user Tobacco use type: Cigarette Years Smoked: 10 Meds Allergies Allergy/AdvReac Type Severity Reaction Status Date / Time Sulfa (Sulfonamide Allergy Unknown Unknown Verified 01/27/25 08:33 Antibiotics) sulfamethoxazole (From Allergy Unknown HIVES Verified 01/27/25 08:33 BACTRIM) trimethoprim (From BACTRIM) Allergy Unknown HIVES Verified 01/27/25 08:33 Home Medications ?Medication ?Instructions ?Recorded ?Confirmed ?Last Taken ?Type lisinopril 20 1 tab PO DAILY 12/08/19 01/27/25 Unknown History mg-hydrochlorothiazide 25 mg tablet omeprazole 20 mg capsule,delayed 20 mg PO DAILY 12/08/19 01/27/25 Unknown History release simvastatin 20 mg tablet 20 mg PO BEDTIME 12/08/19 01/27/25 Unknown History levothyroxine 88 mcg tablet 88 mcg PO DAILY 11/15/22 01/27/25 Unknown History (Synthroid) Assessment and Plan Assessment Anesthesia Assessment: Chart Reviewed Documented by User: Ligia Phipps MD 01/27/25 09:59 PMFSH Past Medical History Medical History Breast cancer Vitamin D deficiency Abnormal thyroid biopsy Dyslipidemia Hypertension Obesity (BMI 30-39.9) Thyroid nodule Hypothyroidism Family History Family History Father Heart disease Mother Hypertension Thyroid disease Afib Maternal Aunt Diabetes mellitus Surgical History Surgical History H/O colonoscopy Hx of breast biopsy Hx of arthroscopy of left knee History of Problems with Anesthesia: No Social History Social History Household Members: Spouse Alcohol intake: current Alcohol intake frequency: a few times a week Alcohol type: wine and hard liquor Patient Tobacco Use Status: Former Tobacco user Tobacco use type: Cigarette Years Smoked: 10 Meds Allergies Allergy/AdvReac Type Severity Reaction Status Date / Time Sulfa (Sulfonamide Allergy Unknown Unknown Verified 01/27/25 08:33 Antibiotics) sulfamethoxazole (From Allergy Unknown HIVES Verified 01/27/25 08:33 BACTRIM) trimethoprim (From BACTRIM) Allergy Unknown HIVES Verified 01/27/25 08:33 Home Medications ?Medication ?Instructions ?Recorded ?Confirmed ?Last Taken ?Type lisinopril 20 1 tab PO DAILY 12/08/19 01/27/25 Unknown History mg-hydrochlorothiazide 25 mg tablet omeprazole 20 mg capsule,delayed 20 mg PO DAILY 12/08/19 01/27/25 Unknown History release simvastatin 20 mg tablet 20 mg PO BEDTIME 12/08/19 01/27/25 Unknown History levothyroxine 88 mcg tablet 88 mcg PO DAILY 11/15/22 01/27/25 Unknown History (Synthroid) Exam Airway Mallampati Class: II TM Dist: >3cm Neck ROM: Full Loose/Missing/Broken Teeth: No Heart: RRR Lungs: CTA Assessment and Plan Assessment Anesthesia Assessment: Anesthesia Plan Discussed Final Anesthetic Review History of Problems with Anesthesia: No NPO: Yes ASA Class: II Final Preanesthetic Review: Meds/Allgs Chart Reviewed, Consent Obtained/Reviewed and Anes Risks/Benef Reviewed Patient Risk: Low Procedure Risk: Low Anesthetic Plan Anesthetic Plan: MAC: Disposition: Standard PACU
[2025-01-23 13:33] VITALS: BMI 32.3
[2025-01-27 08:31] VITALS: BMI 31.8
[2025-01-27 08:34] VITALS: BP 177/88; PULSE 88; RESP 18; TEMP 36.1; O2SAT 96
--- NOTE | 2025-01-27 08:44 | MHC.SHP ---
Pre-Procedural Eval Section A - 24 Hr Update-Section A only Date of Service: 01/27/25 The patient is an INPATIENT: No Changes since office visit: No Cold of Flu in the past 2 weeks, No New Medical Problems, No Changes in Medication and No Patient answered all questions The patient has been examined within 24 hours of the surgical procedure. The History & Physical has been completed within 30 days and I have reviewed it.: Yes Section B - Complete if H&P > 30 days Chief Complaint: screening Allergies: Allergies Allergy/AdvReac Type Severity Reaction Status Date / Time Sulfa (Sulfonamide Allergy Unknown Unknown Verified 01/27/25 08:33 Antibiotics) sulfamethoxazole (From Allergy Unknown HIVES Verified 01/27/25 08:33 BACTRIM) trimethoprim (From BACTRIM) Allergy Unknown HIVES Verified 01/27/25 08:33 Plan I have reviewed the history and physical and performed a pertinent physical examination on my patient. No changes have occurred unless specified. Time Spent With Patient Time: Total time managing care of this patient today ____ minutes.
[2025-01-27 08:53] VITALS: BP 165/86
[2025-01-27] MEDS: Lactated Ringers 1,000 ML 100 ML IVCONT (08:53)
[2025-01-27 10:13] VITALS: BP 85/33; PULSE 82; RESP 18; TEMP 36.4; O2SAT 95
[2025-01-27 10:15] VITALS: BP 96/61; PULSE 73; RESP 15; O2SAT 95
[2025-01-27 10:20] VITALS: BP 98/57; PULSE 76; RESP 14; O2SAT 95
[2025-01-27 10:30] VITALS: BP 121/71; PULSE 74; RESP 13; TEMP 36.6; O2SAT 97
--- NOTE | 2025-01-27 12:41 | OP_ITS ---
DATE OF SERVICE: 01/27/2025 SURGEON: Kenneth Kinney MD INDICATIONS: Colon cancer screening. PREOPERATIVE DIAGNOSIS: POSTOPERATIVE DIAGNOSIS: PROCEDURE PERFORMED: Colonoscopy to the terminal ileum with hot snare polypectomy. ESTIMATED BLOOD LOSS: COMPLICATIONS: ANESTHESIA: Monitored anesthesia care. ASSISTANTS: SPECIMENS: DESCRIPTION OF PROCEDURE: A history and physical was performed. The risks and benefits of the procedure were explained to the patient, and informed consent was obtained. The patient was placed in the left lateral decubitus position. A digital rectal exam was performed and was found to be normal. The Olympus pediatric video colonoscope was introduced into the rectum and advanced to the cecum. The cecum was identified by transillumination, palpation, and identification of ileocecal valve. Examination was performed. The scope was removed. She tolerated the procedure well and was returned to the recovery area in stable condition. FINDINGS: The terminal ileum was examined and appeared normal. The visualized colonic mucosa was normal. The quality of the prep was good. A single polyp was identified and removed using a hot snare at 65 cm from the anal verge. The polyp was recovered via suction and measured approximately 8 mm. No other polyps were identified. Retroflexed examination was normal. IMPRESSION: Colon polyp. RECOMMENDATION: Follow up the biopsy results. MD DAMON Kirk/MODL / [id number]
== END 2025-01-27 11:01 | disposition home or self-care (01) ==
PROVIDERS: PCP Internal Medicine; Visit Provider Internal Medicine Gastroenterology
PROC: 0DJD8ZZ Inspection of Lower Intestinal Tract, Via Natural or Artificial Opening Endoscopic (ICD-10-PCS; CPT 45378; principal; 2025-01-27 09:30)
DX: Z12.11 Encounter for screening for malignant neoplasm of colon (principal); R19.7 Diarrhea, unspecified; K21.9 Gastro-esophageal reflux disease without esophagitis; K63.5 Polyp of colon; E78.5 Hyperlipidemia, unspecified; Z86.0101 Personal history of adenomatous and serrated colon polyps
CPT/HCPCS: 45385; 36415; 80053; 80061; 84439; 84443; 85025; 88305; J2003; J2704

== ENCOUNTER 2025-02-10 08:13 | Outpatient (REF) | payer MEDICARE, SELFPAY ==
[2025-02-10 09:09] LABS: MANUAL DIFF FLAG NO
[2025-02-10 09:42] LABS: Hematocrit 40.3 % (37.0-47.0); Hemoglobin 13.4 g/dl (12.0-16.0); Imm Gran Abs Auto 0.03 X10*3/uL (0.00-0.03); Imm Gran Pct Auto 0.3 % (0.0-0.4); Lymphocytes Absolute Auto 2.6 X10*3/uL (1.2-4.9); Mean Corpuscular HGB Conc 33.3 g/dl (31.0-35.0); Mean Corpuscular Hemoglobin 29.6 pg (27.0-33.0); Mean Corpuscular Volume 89.0 fL (80.0-98.0); NRBC Abs Auto 0.000 X10*3/uL (0.0-0.012); NRBC Pct Auto 0.0 /100WBC (0.0-0.2); Platelet Count 325 X10*3/uL (160-400); Red Blood Count 4.53 X10*6/uL (4.20-5.50); White Blood Count 8.6 X10*3/uL (4.8-10.8)
[2025-02-10 12:12] LABS: Albumin Level 4.2 g/dL (3.5-5.0); Alkaline Phosphatase 95 U/L (39-117); Anion Gap 12 (12-20); Aspartate Amino Transferase 33 U/L (5-31); Blood Urea Nitrogen 15 mg/dL (9-16); Calcium 9.4 mg/dL (8.4-10.2); Carbon Dioxide 26 mmol/L (22-29); Chloride 107 mmol/L (96-108); Cholesterol 195 mg/dL (<200); Estimated Glomerular Filt Rate > 60; Free T4 (Free Thyroxine) 1.12 ng/dL (0.71-1.85); HDL Cholesterol 62 mg/dL (>40); Potassium 4.2 mmol/L (3.3-5.1); Sodium 141 mmol/L (135-145); Thyroid Stimulating Hormone 4.19 uIU/mL (0.32-4.0); Total Protein 7.5 g/dL (6.5-8.0); Triglycerides 120 mg/dL (<150)
[2025-02-10 12:29] LABS: Alanine Aminotransferase 30 U/L (0-31)
== END 2025-02-10 08:14 | disposition home or self-care (01) ==
LOC: HO.LAB 08:13
PROVIDERS: Absent Provider Physician Assistant; PCP Internal Medicine; Visit Provider Nurse Practitioner Family
DX: I10 Essential (primary) hypertension (principal); E78.2 Mixed hyperlipidemia; E03.9 Hypothyroidism, unspecified; R00.2 Palpitations; E66.9 Obesity, unspecified; Z68.33 Body mass index [BMI] 33.0-33.9, adult; Z79.899 Other long term (current) drug therapy
CPT/HCPCS: 36415; 80053; 80061; 84439; 84443; 85025; 93005; 99212

== ENCOUNTER 2025-02-10 08:13 | Outpatient (AMB) | payer MEDICARE, SELFPAY ==
--- OUTSIDE RECORDS SUMMARY | 2025-01-27 03:50 | XMS_ITS ---
Author Organization [facility] Address [address] [place] [address] Care Team Providers Care Chip Separator Name Role Phone Erik Lizama Primary Care Provider Kenneth Noyola Jr REASON FOR VISIT screening Medications Medication SIG (Take, Route, Frequency, Duration) Notes Start Date End Date Status Probiotic Tablet Delayed Release Orally Active Calcium + D3 600-200 MG-UNIT Tablet Orally Active Omeprazole 20 MG Capsule Delayed Release 1 capsule 30 minutes before morning meal Orally Once a day Active Cranberry 405 MG Capsule as directed Orally Active MiraLax (colon prep) 8.3 ounce (238) grams mixed with Gatorade or Crystal Light orally begin at 5:00 p.m. the day before the procedure; Duration: 1 day 06/11/2019 Not-Taking/PRN Meloxicam 15 MG Tablet 1 tablet Orally O nce a day Active Lisinopril-hydroCHLOROth iazide 20-25 MG Tablet 1 tablet Orally Once a day Active Levothyroxine Sodium 88 MCG Tablet 1 tablet Orally Once a day Active Simvastatin 20 MG Tablet 1 tablet in the evening Orally Once a day Active Encounters Encounter Location Date Provider Diagnosis [facility] [place] Outpatient [address] [facility] [place] [id number] 01/27/2025 Kenneth Kinney Jr Plan Of Treatment No Information Progress Notes * SUSIE LIRADOB:06/1955 (69 yo F)Acc No.[id number]:01/27/2025 COLON WITH MAC Patient: SUSIE WEBBER Provider: Paulina Kinney MD :1955 A ge:69 Y S ex:Female Date:01/27/2025 Address:[address], [id number] Pcp:Erik Lizama Subjective: * Chief Complaints: * S creening * Medications: T akingMeloxicam 15 MG Tablet 1 tablet Orally Once a day Lisinopril- hydroCHLOROthiazide 20-25 MG Tablet 1 tablet Orally Once a day Levothyroxine Sodium 88 MCG Tablet 1 tablet Orally Once a day Simvastatin 20 MG Tablet 1 tablet in the evening Orally Once a day Probiotic Tablet Delayed Release Orally Calcium + D3 600-200 MG-UNIT Tablet Orally Omeprazole 20 MG Capsule Delayed Release 1 capsule 30 minutes before morning meal Orally Once a day Cranberry 405 MG Capsule as directed Orally Taking Meloxicam 15 MG Tablet 1 tablet Orally Once a day Taking Lisinopril-hydroCHLOROthiazide 20-25 MG Tablet 1 tablet Orally Once a day Taking Levothyroxine Sodium 88 MCG Tablet 1 tablet Orally Once a day Taking Simvastatin 20 MG Tablet 1 tablet in the evening Orally Once a day Taking Probiotic Tablet Delayed Release Orally Taking Calcium + D3 600-200 MG-UNIT Tablet Orally Taking Omeprazole 20 MG Capsule Delayed Release 1 capsule 30 minutes before morning meal Orally Once a day Taking Cranberry 405 MG Capsule as directed Orally Not-Taking/PRNMiraLax (colon prep) 8.3 ounce ((238) grams mixed with Gatorade or Crystal Light orally begin at 5:00 p.m. the day before the procedure Not-Taking/PRN MiraLax (colon prep) 8.3 ounce ((238) grams mixed with Gatorade or Crystal Light orally begin at 5:00 p.m. the day before the procedure Billing Information: * Procedure Codes: * The named appointment provid er may or may not be the originator of this progress note, and it is not deemed complete until electronically signed by the appointment provider. Sign off status: Pending * Provider: Paulina Kinney MD Date: 03/30/2024 Generated for Jamilah randhawa/Albina/Baldev on: 09:42 AM EST
--- NOTE | 2025-02-10 08:17 | MHC.OFFVIS ---
Vital Signs 02/10/25 08:18 Height 5 ft 6 in Weight 205 lb 0.478 oz BMI 33.1 BP 142/70 H Blood Pressure Location Lt brachial Position Sitting Pulse 70 Pulse Source Monitor Intake Visit Reasons: 1 yr f/up Framer Required: No Allergies Sulfa (Sulfonamide Antibiotics) Allergy (Unknown, Verified 02/10/25 08:20) Unknown sulfamethoxazole (From BACTRIM) Allergy (Unknown, Verified 02/10/25 08:20) HIVES trimethoprim (From BACTRIM) Allergy (Unknown, Verified 02/10/25 08:20) HIVES Medication List - Last Reconciled 02/10/25 by LAMONTE Britt levothyroxine (Synthroid) 88 mcg PO DAILY lisinopril-hydrochlorothiazide 20-25 mg 1 tab PO DAILY metoprolol succinate ER 25 mg PO BID 90 days omeprazole 20 mg PO DAILY simvastatin 20 mg PO BEDTIME HPI Comments Details: History of Present Illness The patient is a 69 year old female presenting for follow-up of cardiac risk factors and heart palpitations. She has a history of palpitations, with a Holter monitor in January 2020 showing sinus rhythm with occasional PVCs that correlated with her symptoms. She reports her palpitations are now infrequent, typically occurring only when she is nervous, and are well-controlled with metoprolol taken twice daily. The patient has a significant family history of coronary artery disease, as her brother had a myocardial infarction at age 60, but she has no personal history of known CAD. Her other chronic conditions include hypertension, hyperlipidemia, and hypothyroidism. Her current medications are lisinopril/ hydrochlorothiazide, metoprolol, simvastatin, omeprazole, and levothyroxine. She has no symptoms of chest pain, trouble breathing, lightheadedness, or swollen legs. She reports being largely inactive and struggles with her weight, with a history of weight cycling. She nderwent rotator cuff surgery last March and reports complete recovery. She is leaving for [place] tomorrow and will be there for several months. Recent lab work done while she was fasting for a colonoscopy showed a slightly elevated TSH of 4.73, and she is scheduled for a repeat test. Labs from 01/27/2025 showed a potassium of 3.9, creatinine of 0.81, LDL of 93, TSH of 4.37, and hematocrit of 41.9. [facility] Medical History Breast cancer Vitamin D deficiency Abnormal thyroid biopsy Dyslipidemia Hypertension Obesity (BMI 30-39.9) Thyroid nodule Hypothyroidism Surgical History H/O colonoscopy Hx of breast biopsy Hx of arthroscopy of left knee Family History Father Heart disease Mother Hypertension Thyroid disease Afib Maternal Aunt Diabetes mellitus Social History Household Members: Spouse Alcohol intake: current Alcohol intake frequency: a few times a week Alcohol type: wine and hard liquor Patient Tobacco Use Status: Former Tobacco user Tobacco use type: Cigarette Years Smoked: 10 Review of Systems Const All systems reviewed & are unremarkable except as noted in HPI and below ENT Denies dizziness Card Denies chest pain, Denies chest pain at rest, Denies chest pain with activity, Denies rapid heart rate, Denies pedal edema, Denies edema, Denies leg edema, Denies lightheadedness, Denies palpitations, Denies dyspnea, Denies dyspnea on exertion and Denies orthopnea Resp Denies cough, Denies dyspnea and Denies dyspnea on exertion GI Denies hematochezia and Denies change in stool character Musc Denies abnormal gait, Reports limited range of motion, Reports muscle cramps, Denies muscle weakness, Denies numbness, Denies radiating pain into limb, Denies stiffness and Denies tingling Neuro Denies abnormal gait, Denies dizziness, Denies numbness and Denies tingling Endo Denies palpitations Physical Exam Vital Signs: Last Vital Signs Pulse 70 02/10/25 08:18 BP 142/70 H 02/10/25 08:18 BMI result Body Mass Index 33.1 Const General: cooperative, healthy appearing, comfortable and no acute distress Orientation/consciousness: patient oriented x3 Neck Neck: Yes normal visual inspection Resp Effort & Inspection: normal respiratory effort Auscultation: clear to auscultation bilaterally, no rales, no rhonchi and no wheezes Cardio Rate: regular rate Rhythm: regular rhythm Heart sounds: S1 normal heart sound present, S2 normal heart sound present, no gallops, no murmurs and no rubs Neuro General: patient oriented x3 Extrem General: Yes normal to inspection, No no pedal edema and No calf tenderness Psych Appearance: grossly normal Mental Status: mental status grossly normal Speech and movement: Normal speech and movement present Office Procedures EKG Details: Today, read by me, normal sinus rhythm, rate 70, QTC 434 milliseconds [id number], Complete Assessment & Plan Assessment & Plan (1) Hypertension: Code(s): I10 - Essential (primary) hypertension Category: Medical Plan: Blood pressure goal less than 130/80. Blood pressure mildly elevated today. Recent check in another office was normal at 121/71. Will have her continue on current medications as she is leaving for [place] tomorrow. Discussed low-salt diet, weight loss and increasing physical activity. Home blood pressure monitoring if able. (2) Dyslipidemia: Code(s): E78.5 - Hyperlipidemia, unspecified Category: Medical Plan: [place] LDL goal less than 100. Labs done 01/27/2025 showed LDL 93. Continue simvastatin. (3) Palpitations: Code(s): R00.2 - Palpitations Category: Medical Plan: Reports of heart palpitations, more in the past, currently less. Prior Holter monitor had shown that her symptoms correlated with PVCs. Reviewed good hydration, reduction in caffeinated beverages, exercise as tolerated. (4) Obesity (BMI 30-39.9): Code(s): E66.9 - Obesity, unspecified Category: Medical Plan: Benefits of weight loss and exercise reviewed. Plan Discussion Notes I reviewed the plan with the patient. I noted that her palpitations are infrequent and well-controlled with her current metoprolol regimen, and her EKG today was normal. Given her strong family history of coronary artery disease, I emphasized the importance of monitoring for cardiac symptoms. I explained that because she is not very physically active, she might miss early warning signs such as chest discomfort or shortness of breath with exertion. I advised her to start a regular walking routine in [place] and to seek medical attention if she develops new chest squeezing, pressure, or significant shortness of breath during these activities. We discussed her blood pressure, noting the reading of 136/76 mmHg. I recommended lifestyle changes, including weight loss, regular exercise, and salt reduction, as these can positively impact blood pressure. I explained that I would not adjust her medications at this time, as she is leaving for several months and has no provider for follow-up in [place]. We discussed her recent slightly elevated TSH and her plan to have it rechecked, which I agreed with. I advised a follow-up in one year, or sooner if needed, and we will try to schedule her next visit in January before she travels. Patient Instructions - Continue to take all your current medications as prescribed, including those for blood pressure, cholesterol, and thyroid. - Make sure you have enough refills of your medications to last for your entire trip to [place]. - While in [place], try to establish a routine of regular physical activity, such as walking every day or every other day. - Pay close attention to how your body feels during exercise. If you notice any new symptoms like chest pain, pressure, squeezing, heaviness, or shortness of breath, please seek medical attention. - To help lower your blood pressure, focus on a diet low in salt, continue your efforts with weight management, and exercise regularly. - Please follow up to have your thyroid blood test repeated as you planned. - We will plan to see you back in the office in about one year, or sooner if any new concerns arise. Patient was informed and verbally consented to the use of an ambient scribe for clinic note documentation during this visit. Visit time spent on chart review, interview, assessment, orders, documentation. Coding Level of Care Code Est Pt Level 4 (37946) Add On Problem Visit Only Diagnoses Hypertension I10 Dyslipidemia E78.5 Palpitations R00.2 Obesity (BMI 30-39.9) E66.9 CPT Codes EKG - CPT: [id number], Complete ([id number]) Time Spent (min) 28
[2025-02-10 08:18] VITALS: BP 142/70; PULSE 70; BMI 33.1
--- OUTSIDE RECORDS SUMMARY | 2025-02-10 09:43 | XMS_ITS | Clinical Summary ---
Author Organization [facility] Address [address] [place] [address] Phone Care Team Providers Care Pediatric Nephrologist Name Role Phone Erik Lizama DO Primary Care Provider Allergies Active Allergy Reactions Criticality Noted Date [...] file Insurance MEDICARE PART A & B [employer] MED[employer] SUPPLEMENT MEDICARE PART A & B [employer] SUPPLEMENT MEDICARE PART A & B [employer] MEDEX SUPPLEMENT MEDICARE PART A & B [employer] MEDEX SUPPLEMENT MEDICARE PART A & B Member Subscriber Plan / Payer (Ef fective 2018-Present) Name:Verena Camacho Member ID:[id number] Relation to Subscriber:Self Name:Verena Camacho Subscriber ID:[id number] Payer ID:[id number] Group ID:Not on file Type:Medicare Address: [facility] [employer] [facility] [address] [address] [place] [employer] MEDEX SUPPLEMENT MEDICARE PART A & B Member Subscriber Plan / Payer (Ef fective 2018-Present) Name:Verena Camacho Member ID:[id number] Relation to Subscriber:Self Name:Verena Camacho Subscriber ID:[id number] Payer ID:[id number] Group ID:Not on file Type:Medicare Address: [facility] [employer] [facility] [employer] [facility] [address] [place] [address] [employer] MEDEX SUPPLEMENT Care Teams Pediatric Nephrologist Relationship Specialty Start Date End Date Erik Lizama DO [email or web address] PCP - General Internal Medicine 09/03/23 Additional Source Comments The information contained in this document represents components of the legal health record. It is not the complete legal health record.[facility]
--- OUTSIDE RECORDS SUMMARY | 2025-02-10 09:43 | XMS_ITS | Patient Health Record ---
Author Organization [facility] Address [address] [place] [address] Care Team Providers Care Soaker Helper Name Role Phone Erik Lizama Primary Care Provider Kenneth Noyola Jr Unavailable Allergies Allergen (clinical drug ingredient) Drug/Non Drug Allergy documented on EMR Reaction Allergy Type Onset Date Status sulfamethoxazole / trimethoprim Bactrim Unknown Drug Allergy Active Results Component Value Reference Range Notes Pathology Reviewed date:01/29/2025 08:34:25 AM Interpretation: Performing Lab:[facility], [address] [place] [id number] Notes/Report: Reason For Referral No Information Medications Medication SIG (Take, Route, Frequency, Duration) Notes Start Date End Date Status Meloxicam 15 MG Tablet 1 tablet Orally O nce a day Active Lisinopril-hydroCHLOROth iazide 20-25 MG Tablet 1 tablet Orally Once a day Active Levothyroxine Sodium 88 MCG Tablet 1 tablet Orally Once a day Active Simvastatin 20 MG Tablet 1 tablet in the evening Orally Once a day Active Probiotic Tablet Delayed Release Orally Active Calcium + D3 600-200 MG-UNIT Tablet Orally Active Omeprazole 20 MG Capsule Delayed Release 1 capsule 30 minutes before morning meal Orally Once a day Active Cranberry 405 MG Capsule as directed Orally Active MiraLax (colon prep) 8.3 ounce ((238) grams mixed with Gatorade or Crystal Light orally begin at 5:00 p.m. the day before the procedure; Duration: 1 day 06/11/2019 Not-Taking/PRN Immunizations Vaccine Route Administration Date Status Comme [...] Options Details Miscellaneous: Marital status: Occupation: retired [employer] Problems Problem Type SNOMED Code ICD Code Onset Dates Problem Status W/U Status Risk Notes Problem Colon cancer screening (864724936) Colon cancer screening (Z12.11) Active confirmed Problem Diarrhea (68299814) Diarrhea (R19.7) Active con firmed Problem History of polyp of colon (situation) (323631802) Personal history of colonic polyps (Z86.010) Active confirmed Problem Gastroesophageal reflux disease without esophagitis (617608714) Gastroesophageal reflux disease without esophagitis (K21.9) Active confirmed Vital Signs Temperature 97.9 degrees Fahrenheit 01/12/2025 Blood pressure diastolic 01 mm Hg 01/12/2025 Height 66 in 01/12/2025 Blood pressure systolic 001 mm Hg 01/12/2025 Weight 200.2 lbs 01/12/2025 BMI 32.31 kg/m2 01/12/2025 Encounters Encounter Location Date Provider Diagnosis [facility] [address] [place], [place] [id number] 01/27/2025 Kenneth Kinney Jr [facility] [address] [place] [phone] 01/12/2025 Kenneth Kinney Jr Gastroesophageal reflux disease without esophagitis K21.9 ; Diarrhea R19.7 and Colon cancer screening Z12.11 [facility] [address] [place] [phone] 01/12/2025 Kenneth Kinney Jr [facility] [address] [place] [address] 01/29/2025 Kenneth Kinney Jr Assessments Encounter Date Diagnosis [...] 10/15/2014 COLONOSCOPY 10/15/2014 COLONOSCOPY 06/11/2019 COLONOSCOPY 01/12/2025 Insurance Providers Payer Name Payer Address Payer Phone Subscriber Number Group Number Insured Name Patient Relationship to Insured Coverage Start Date Coverage End Date MEDICARE OF [place] [address] [place] [id number] [id number] SUSIE MCKENZIE Self - patient is the insured 9 MEDEX ATTN CLAIMS [address] [place] [address] [phone] [id number] SUSIE MCKENZIE Self - patient is the insured Medical (General) History Medical History History ICD Code Colonoscopy 2019, tubular adenoma, 5-yea r follow-up Hyperlipidemia Hypertension Surgical History Surgery Date(Month/Year) Lobular carcinoma in situ, s tatus post lumpectomy & Tamoxifen treatment for five years 2001 laparoscopic left knee surgery 2015
--- OUTSIDE RECORDS SUMMARY | 2025-02-10 09:43 | XMS_ITS | Patient Health Record ---
Author Organization [facility] Address [address] [place] [address] Care Team Providers Care Microwave Supervisor Name Role Phone Mj Galindo Unavailable [phone] Mj Galindo Do Unavailable Unavailable Vimal Daly Unavailable [phone] Allergies Allergen (clinical drug ingredient) Drug/Non Drug [...] tendon of the rotator cuff of shoulder (304276950) Strain of muscle(s) and tendon(s) of the rotator cuff of right shoulder, subsequent encounter (S46.011D) Active confirmed Problem Traumatic rupture of rotator cuff (disorder) (407944334) Traumatic complete tear of right rotator cuff, initial encounter (S46.011A) Active confirmed Problem Rupture biceps tendon (955801543) Biceps tendon tear (S46.219A) Active confirmed Problem [...] Diagnosis [facility] [address] [place] [address] 02/28/2024 Mj Galindo Anterior dislocation of right shoulder, initial encounter S43.014A and Traumatic complete tear of right rotator cuff, initial encounter S46.011A [facility] [address] [place] [address] 03/13/2024 Mj Galindo Traumatic complete tear of right rotator cuff, initial encounter S46.011A [facility] [address] [facility] [address] [place] [address] 04/04/2024 Mj Galindo Traumatic complete tear of right rotator cuff, initial encounter S46.011A ; Biceps tendon tear S46.219A ; Subacromial bursitis of right shoulder joint M75.51 ; Degenerative tear of glenoid labrum of right shoulder M24.111 and Bicipital tendinitis, right shoulder M75.21 [facility] [address] [place] [address] 04/09/2024 Mj Galindo Strain of muscle(s) and tendon(s) of the rotator cuff of right shoulder, subsequent encounter S46.011D and Biceps tendon tear S46.219A [facility] [address] [place] [address] 04/17/2024 jM Galindo Strain of muscle(s) and tendon(s) of the rotator cuff of right shoulder, subsequent encounter S46.011D and Biceps tendon tear S46.219A [facility] [address] [place] [address] 04/23/2024 Mj Galindo Traumatic complete tear of right rotator cuff, initial encounter S46.011A [facility] [address] [place] [address] 04/30/2024 Vimal Daly Strain of muscle(s) and tendon(s) of the rotator cuff of right shoulder, subsequent encounter S46.011D [facility] [address] [place] [address] 05/01/2024 Vimal Daly Strain of muscle(s) and tendon(s) of the rotator cuff of right shoulder, subsequent encounter S46.011D [facility] [address] [place] [address] 05/05/2024 Vimal Daly Traumatic complete tear of right rotator cuff, initial encounter S46.011A [facility] [address] [place] [address] 05/08/2024 Mj Galindo Strain of muscle(s) and tendon(s) of the rotator cuff of right shoulder, subsequent encounter S46.011D [facility] [address] [place] [address] 05/12/2024 Vimal Daly Strain of muscle(s) and tendon(s) of the rotator cuff of right shoulder, subsequent encounter S46.011D [facility] [address] [place] [address] 05/15/2024 Mj Galindo Biceps tendon tear S46.219A and Strain of muscle(s) and tendon(s) of the rotator cuff of right shoulder, subsequent encounter S46.011D [facility] [address] [place] [address] 05/19/2024 Vimal Daly Traumatic complete tear of right rotator cuff, initial encounter S46.011A [facility] [address] [place] [address], [place] [address] 05/22/2024 Mj Galindo Strain of muscle(s) and tendon(s) of the rotator cuff of right shoulder, subsequent encounter S46.011D [facility] [address] [address] 05/26/2024 Vimal Daly Strain of muscle(s) and tendon(s) of the rotator cuff of right shoulder, subsequent encounter S46.011D [facility] [address] [address] 05/29/2024 Mj Galindo Strain of muscle(s) and tendon(s) of the rotator cuff of right shoulder, subsequent encounter S46.011D [facility] [address] [address] 05/30/2024 Mj Galindo Strain of muscle(s) and tendon(s) of the rotator cuff of right shoulder, subsequent encounter S46.011D [facility] [address] [address] 06/03/2024 Vimal Daly Strain of muscle(s) and tendon(s) of the rotator cuff of right shoulder, subsequent encounter S46.011D [facility] [address] [address] 06/05/2024 Mj Galindo Traumatic complete tear of right rotator cuff, initial encounter S46.011A [facility] [address] [address] 06/09/2024 Vimal Daly Strain of muscle(s) and tendon(s) of the rotator cuff of right shoulder, subsequent encounter S46.011D [facility] [address] [address] 06/12/2024 Vimal Daly Strain of muscle(s) and tendon(s) of the rotator cuff of right shoulder, subsequent encounter S46.011D [facility] [address] [address] 06/16/2024 Viaml Daly Strain of muscle(s) and tendon(s) of the rotator cuff of right shoulder, subsequent encounter S46.011D [facility] [address] [place] [address] 06/18/2024 Mj Galindo Strain of muscle(s) and tendon(s) of the rotator cuff of right shoulder, subsequent encounter S46.011D [facility] [address] [place] [address] 06/23/2024 Vimal Daly Strain of muscle(s) and tendon(s) of the rotator cuff of right shoulder, subsequent encounter S46.011D [facility] [address] [place] [address] 06/25/2024 Mj Galindo Strain of muscle(s) and tendon(s) of the rotator cuff of right shoulder, subsequent encounter S46.011D [facility] [address] [place] [address] 06/26/2024 Mj Galindo Biceps tendon tear S46.219A and Strain of muscle(s) and tendon(s) of the rotator cuff of right shoulder, subsequent encounter S46.011D [facility] [address] [place] [address] 07/01/2024 Vimal Daly Strain of muscle(s) and tendon(s) of the rotator cuff of right shoulder, subsequent encounter S46.011D [facility] [address] [place] [address] 07/02/2024 Mj Gailndo Strain of muscle(s) and tendon(s) of the rotator cuff of right shoulder, subsequent encounter S46.011D [facility] [address] [place] [address] 03/07/2024 Mj Galindo Assessments Encounter Date Diagnosis [...] End Date Medicare Part B [address] [address] [place] [address] [id number] SUSIE MCKENZIE Self - patient is the insured [facility] [address] [place] [address] [id number] SUSIE MCKENZIE Self - patient is the insured Medical (General) History Medical History History ICD Code Arthritis hyperlipidemia hypertension reflux Thyroid Dysfunction Surgical History Surgery Date(Month/Year) lt knee arthroscopy 2015 rt breast biopsy 2001 lt breast biopsy 2007 right shoulder arthroscopy 04/04/24 Hospitalization History Reason Date(Month/Year) childbirth
== END 2025-02-10 08:52 | disposition home or self-care (01) ==
PROVIDERS: PCP Internal Medicine; Visit Provider Nurse Practitioner Family
DX: I10 Essential (primary) hypertension (principal); E78.5 Hyperlipidemia, unspecified; R00.2 Palpitations; E66.9 Obesity, unspecified
CPT/HCPCS: 93010; 99214; G2211